=== PATIENT | female | born 1945 | race African-American/Black ===

== ENCOUNTER 2016-08-11 16:59 | Inpatient (IN) | payer OTHER, MEDICARE ==
[~2016-08-11] VITALS: Ht 172.7 cm; Wt 123.9 kg
[~2016-08-11 16:59] MED LIST: DIOV160T3 PO; METF500T PO; OMEP20TA PO; PRAV40TA PO; VITD400 PO
[2016-09-03] MEDS ORDERED: GABA100C4 PO (14:22)
[2016-09-03] MEDS ORDERED: ZETI10TA5 PO (14:22)
[2016-09-07] MEDS ORDERED: NEOSTIGMINE 3 MG/3 ML SYR IV ONE (12:00)
[2016-09-07] MEDS ORDERED: ePHEDrine/NS 50 MG/5 ML SYR IV ONE (12:00)
[2016-09-07] MEDS ORDERED: PROPOFOL 200 MG/20 ML AMP IV ONE (12:00)
[2016-09-07] MEDS ORDERED: NORMOSOL R INJ 1,000 ML IV ONE (12:00)
[2016-09-07] MEDS ORDERED: ONDANSETRON HCL 4 MG/2 ML VIAL IV PUSH ONE (12:00)
[2016-09-07] MEDS ORDERED: BUPIVACAINE HCL PF 0.5% 30 ML VIAL NB ONE (12:01)
[2016-09-07] MEDS ORDERED: GENTAMICIN SULFATE 80 MG/2 ML VIAL ONE (12:51)
[2016-09-07 13:26] VITALS: BP 138/73; PULSE 67; RESP 20; TEMP 99.1; O2SAT 99
[2016-09-07 13:34] LABS: AUTOMATED NEUTROPHIL # 4.5 TH/MM3 (1.8-7.7); BASOPHIL # 0.1 TH/MM3 (0-0.2); BASOPHIL % 0.7 % (0.0-2.0); EOSINOPHIL # 0.2 TH/MM3 (0-0.4); EOSINOPHIL % 2.8 % (0.0-4.0); HEMATOCRIT 35.3 % (35.0-46.0); HEMO FLAGS DIFF FINAL; MEAN CELL VOLUME 82.6 FL (80.0-100.0); MEAN CORPUSCULAR HGB CONC 33.9 % (32.0-36.0); MONO % 9.4 % (0.0-8.0); NEUT % 60.1 % (16.0-70.0); PLATELET COUNT 261 TH/MM3 (150-450); RED BLOOD COUNT 4.27 MIL/MM3 (4.00-5.30); RED CELL DISTRIBUTION WIDTH 14.5 % (11.6-17.2); WHITE BLOOD COUNT 7.5 TH/MM3 (4.0-11.0)
[2016-09-07] MEDS ORDERED: VANCOMYCIN HCL 1000 MG VIAL ONE (13:39)
[2016-09-07] MEDS ORDERED: SODIUM CHLOR 0.9% 250 ML INJ 250 ML ONE (13:39)
[2016-09-07] MEDS ORDERED: METOPROLOL TARTRATE 25 MG TAB PO PRN (13:45)
[2016-09-07] MEDS ORDERED: VANCOMYCIN 1000 MG/NS 250 ML (for <70 kg) IV SCH ×2 (13:45)
[2016-09-07] MEDS: ROPIVACAINE PERI-ARTICULAR INJECTION. PERIART SCH ×10 (13:45→17:41)
[2016-09-07] MEDS ORDERED: SODIUM CHLORID 0.9% 500 ML IV SCH (13:45)
[2016-09-07] MEDS ORDERED: INSULIN HUMAN REGULAR 1,000 UNITS/10 ML VIAL SQ PRN (13:45)
[2016-09-07] MEDS ORDERED: LACTATED RINGER'S 1000 ML IV SCH (13:45)
[2016-09-07] MEDS: CHLORHEXIDINE GLUCONATE 4% SOLN 120 ML BTL TOP SCH (13:45)
[2016-09-07] MEDS ORDERED: ceFAZolin 2 GM PREMIX 50 ML IV SCH (14:00)
[2016-09-07] MEDS ORDERED: MIDAZOLAM HCL 5 MG/5 ML VIAL ONE (14:43)
[2016-09-07] MEDS ORDERED: FAMOTIDINE 20 MG/2 ML VIAL ONE (14:43)
[2016-09-07] MEDS ORDERED: METOCLOPRAMIDE HCL 10 MG/2 ML VIAL ONE (14:43)
[2016-09-07] MEDS ORDERED: Post-op Orders (for Pharmacy) MISC XX ONE (19:05)
[2016-09-07] MEDS ORDERED: DO NOT ADM ANY ANTICOAGULANT DRUGS XX PRN (19:08)
[2016-09-07] MEDS ORDERED: MORPHINE SULFATE 30 MG/30 ML PCA IV SCH (19:15)
[2016-09-07] MEDS ORDERED: SODIUM CHLORIDE 0.9% FLUSH 5 ML FLUSH IVF PRN (19:15)
[2016-09-07] MEDS ORDERED: ZOLPIDEM TARTRATE 5 MG TAB PO PRN (19:15)
[2016-09-07] MEDS ORDERED: WALKER WHEELS/F1 MIS (19:15)
[2016-09-07] MEDS ORDERED: NALOXONE HCL 0.4 MG/ML AMP IV PRN (19:15)
[2016-09-07] MEDS ORDERED: CPMMACHINE (19:16)
[2016-09-07] MEDS ORDERED: BEDSIDE COMMODE1 MI1 (19:16)
[2016-09-07] MEDS ORDERED: *morphine SULFATE 8 MG/ML PERIprocedure ONLY ONE (19:19)
--- NOTE | 2016-09-07 19:19 | HHI.FF ---
Face to Face Verification Diagnosis: (1) Osteoarthritis of left knee Physical Therapy Gait training, Transfer training, bed to chair Knee: Total knee, Protocol: Left, Full weight bearing Nursing RN Days per Week: 3 x Week(s): 2 Nursing: Dressing changes (clean incision with alcohol and apply dry dressing ) Additional Instructions Pt/INR q Wednesday and , call/text results to Shira [phone] I have seen patient Shikha Matute on 09/07/16. My clinical findings support the need for the requested home health care services because: Deconditioned w/ increased weakness I certify that my clinical findings support that this patient is homebound because: Post-op weakness Unsteady gait/balance Patrick Jhaveri MD Sep 07, 2016 19:19
[2016-09-07] MEDS ORDERED: fentaNYL CITRATE 250 MCG/5 ML AMP ONE ×2 (19:20→19:21)
[2016-09-07] MEDS ORDERED: MIDAZOLAM HCL 2 MG/2 ML VIAL ONE (19:20)
--- NOTE | 2016-09-07 19:22 | HHI.PR ---
Immediate Post Op Note Procedure Date: Sep 07, 2016 Pre Op Diagnosis: L Knee OA Post Op Diagnosis: Same Surgeon: Patrick Jhaveri MD Emergency Spill Response Technician(s): Shira Elliott PA-C Procedure: L TKR Anesthesia: General, Regional Block Drains: Hemovac Tourniquet time (min at mmHg) 250/300 mm hg for 74 mins Patient to: PACU Patient Condition: Good Implant/Devices: SEE IMPLANT LOG (if applicable) Date/Time of Procedure: SEE SURGICAL CARE RECORD Patrick Jhaveri MD Sep 07, 2016 19:22
[2016-09-07] MEDS ORDERED: PILL SPLITTER OTHER PRN (20:00)
[2016-09-07] MEDS: LACTATED RINGER'S 1000 ML INJ 1,000 ML IV SCH (20:00)
--- NOTE | 2016-09-07 20:48 | RADRPT ---
EXAM DATE/TIME: 09/07/2016 19:21 [facility] COMPARISON: No previous studies available for comparison. INDICATIONS : Post op left knee arthroplasty. MEDICAL HISTORY : None. SURGICAL HISTORY : None. ENCOUNTER: Initial ACUITY: 1 day PAIN SCORE: 0/10 LOCATION: Left knee FINDINGS: Postop left total knee replacement. Drain in soft tissues. Skin windy anteriorly. Normal alignment. No complications identified. CONCLUSION: 1. Postoperative left total knee replacement. Husam Franco MD on September 07, 2016 at 20:46 Board Certified Radiologist. This report was verified electronically.
[2016-09-07] MEDS: SODIUM CHLORIDE 0.9% FLUSH 5 ML FLUSH IVF SCH (21:00)
[2016-09-07] MEDS: PCA - TOTAL MG MORPHINE DELIVERED PER SHIFT SCH (22:00)
[2016-09-07 22:15] VITALS: BP 114/75; PULSE 71; RESP 16; TEMP 97; O2SAT 100
[2016-09-07] MEDS: ALUMINUM/MAGNESIUM/SIMETH 30 ML CUP PO PRN (22:18)
[2016-09-07] MEDS: GABAPENTIN 100 MG CAP PO SCH (22:19)
[2016-09-07] MEDS: metFORMIN HCL 500 MG TAB PO SCH (23:12)
[2016-09-08 04:00] VITALS: BP 105/59; PULSE 96; RESP 17; TEMP 97; O2SAT 98
[2016-09-08] MEDS: PCA - TOTAL MG MORPHINE DELIVERED PER SHIFT SCH (05:20)
[2016-09-08 06:17] LABS: PROTHROMBIN TIME - PATIENT 10.8 SEC (9.8-11.6)
--- NOTE | 2016-09-08 07:06 | PD.ORT.PN ---
Subjective Subjective Remarks POD#1 L TKR No sob,no chest pain Explained to pt operative findings Objective Vitals Vital Signs Date Time Temp Pulse Resp B/P Pulse Ox O2 Delivery O2 Flow Rate FiO2 09/08/16 05:20 18 09/08/16 04:00 97.0 96 17 105/59 98 09/08/16 03:24 16 09/07/16 22:15 97.0 71 16 114/75 100 09/07/16 22:00 18 09/07/16 20:45 70 14 155/76 98 Nasal Cannula 2 09/07/16 20:30 61 14 163/75 98 Nasal Cannula 2 09/07/16 20:15 60 16 176/77 98 Nasal Cannula 2 09/07/16 20:00 64 16 158/77 98 Nasal Cannula 2 09/07/16 19:45 68 16 147/51 97 Nasal Cannula 2 09/07/16 19:30 67 16 119/71 97 Nasal Cannula 2 09/07/16 19:15 69 16 145/67 95 Nasal Cannula 2 09/07/16 19:10 98.1 68 18 157/73 98 Nasal Cannula 2 09/07/16 13:26 99.1 67 20 138/73 99 I/O 09/07/16 09/07/16 09/07/16 09/08/16 09/08/16 09/08/16 07:00 15:00 23:00 07:00 15:00 23:00 Intake Total 1500 ml 466 ml Output Total 140 ml 0 ml Balance 1360 ml 466 ml Intake IV Total 466 ml Other 1500 ml Output Drainage Total 90 ml 0 ml Estimated Blood Loss 50 ml # Voids 1 Result Diagram: 09/07/16 1320 Other Results Laboratory Tests Test 09/08/16 05:46 Prothrombin Time 10.8 SEC (9.8-11.6) Prothromb Time International 1.0 RATIO Ratio Imaging Last 24 hours Impressions Knee X-Ray 09/07/16 1907 Signed Impressions: Service Date/Time: Wednesday, September 07, 2016 19:21 - CONCLUSION: 1. Postoperative left total knee replacement. Husam Franco MD Objective Remarks N/V intact Neg sneha's sign;no calf tenderness Assessment & Plan Assessment and Plan Ortho stable PT/Rehab Coumadin,TEDS,Sequentials for DVT prophylaxsis D/C home tomorrow;[facility]HC Nursing/PT Patrick Jhaveri MD Sep 08, 2016 07:06
[2016-09-08 08:17] VITALS: O2SAT 98
[2016-09-08 08:20] VITALS: BP 127/54; PULSE 65; RESP 16; TEMP 98; O2SAT 99
[2016-09-08] MEDS: LACTATED RINGER'S 1000 ML INJ 1,000 ML IV SCH ×2 (08:30→21:00)
[2016-09-08] MEDS: VALSARTAN 160 MG TAB PO SCH (08:54)
[2016-09-08] MEDS: HYDROCHLOROTHIAZIDE 25 MG TAB PO SCH (08:55)
[2016-09-08] MEDS: metFORMIN HCL 500 MG TAB PO SCH ×2 (08:55→19:43)
[2016-09-08] MEDS: PANTOPRAZOLE SOD 20 MG DELAYED RELEASE TAB PO SCH (08:55)
[2016-09-08] MEDS: PRAVASTATIN SOD 40 MG TAB PO SCH (08:55)
[2016-09-08] MEDS: EZETIMIBE 10 MG TAB PO SCH (08:56)
[2016-09-08] MEDS: SODIUM CHLORIDE 0.9% FLUSH 5 ML FLUSH IVF SCH ×2 (08:58→19:44)
[2016-09-08] MEDS: ONDANSETRON HCL 4 MG/2 ML VIAL IVP PRN (11:06)
[2016-09-08 11:11] VITALS: BP 121/55; PULSE 66; RESP 16; TEMP 96.5; O2SAT 100
[2016-09-08 13:45] LABS: HEMATOCRIT 27.8 % (35.0-46.0); REVIEW FLAG FINAL
[2016-09-08] MEDS: CHLORHEXIDINE GLUCONATE 4% SOLN 120 ML BTL TOP SCH (13:45)
[2016-09-08] MEDS: ACETAMINOPHEN/HYDROcodone 325 MG/7.5 MG TAB PO PRN ×2 (14:08→19:43)
--- NOTE | 2016-09-08 15:36 | PD.CONS ---
HPI Service [facility] Hospitalists Consult Requested By Dr. Jhaveri Reason for Consult Medical management Primary Care Physician Chantell Stephen Diagnoses: (1) Osteoarthritis of left knee (2) Diabetes (3) Hyperlipidemia (4) Hypertension History of Present Illness 70-year-old female with a medical history significant for hypertension, hyperlipidemia, diabetes, chronic back pain, GERD, osteoarthritis admitted for total left knee arthroplasty. Hospitalist service consulted for medical management. The patient is seen postop. She reports that her pain is controlled. Regarding hypertension, she reports that it's been under good control with her current medication. She denies any episode of exertional dyspnea or chest pain. Diabetes has been managed with metformin. She reports a history of a heart murmur but denies any history of atrial fibrillation or blood clots. The patient reports having issues with osteoarthritis for a long time. She has a history of multiple back surgery. She has been having increasing issues with the left knee to the point where she could barely walk therefore she was admitted for total left knee arthroplasty. Review of Systems Constitutional: DENIES: Fever, Weight loss, Chills Cardiovascular: DENIES: Chest pain, Lower Extremity Edema Musculoskeletal: COMPLAINS OF: Joint pain, Muscle aches, Back pain Other All other systems reviewed and are negative. Past Family Social History Allergies: Coded Allergies: Clam (Unverified Allergy, Severe, lips swelling and itching, 09/07/16) Penicillin (Unverified Allergy, Severe, WELTS, SWELLING, PRURITIS, 09/07/16 ) Xanax (Unverified Adverse Reaction, Severe, HALLUCINATIONS, 09/07/16) Past Medical History hypertension, hyperlipidemia, diabetes, chronic back pain, GERD, osteoarthritis Past Surgical History Appendectomy Lumbar laminectomy and fusion. Pain stimulator 2. Both have since been removed. Total left knee arthroplasty Reported Medications Reported Meds & Active Scripts Active CPM-Continuous Passive Motion Machine 1 Ea Device 1 Ea .ROUTE DIRECTED Bedside Commode (Device) 1 Mis Mis 1 Ea .ROUTE DIRECTED Reported Gabapentin 100 Mg Cap 100 Mg PO HS Zetia (Ezetimibe) 10 Mg Tab 10 Mg PO DAILY Diovan Hct (Valsartan-Hydrochlorothiazide) 160-12.5 Mg Tab 1 Tab PO DAILY Pravachol (Pravastatin) 40 Mg Tab 40 Mg PO DAILY Omeprazole 20 Mg Tab 20 Mg PO DAILY Metformin (Metformin HCl) 500 Mg Tab 1,000 Mg PO BID With a meal Physical Exam Vital Signs Vital Signs Date Time Temp Pulse Resp B/P Pulse Ox O2 Delivery O2 Flow Rate FiO2 09/08/16 11:11 96.5 66 16 121/55 100 09/08/16 08:20 98.0 65 16 127/54 99 09/08/16 08:17 98 21 09/08/16 05:20 18 09/08/16 04:00 97.0 96 17 105/59 98 09/08/16 03:24 16 09/07/16 22:15 97.0 71 16 114/75 100 09/07/16 22:00 18 09/07/16 20:45 70 14 155/76 98 Nasal Cannula 2 09/07/16 20:30 61 14 163/75 98 Nasal Cannula 2 09/07/16 20:15 60 16 176/77 98 Nasal Cannula 2 09/07/16 20:00 64 16 158/77 98 Nasal Cannula 2 09/07/16 19:45 68 16 147/51 97 Nasal Cannula 2 09/07/16 19:30 67 16 119/71 97 Nasal Cannula 2 09/07/16 19:15 69 16 145/67 95 Nasal Cannula 2 09/07/16 19:10 98.1 68 18 157/73 98 Nasal Cannula 2 Physical Exam GENERAL: This is a well-nourished, well-developed patient, in no apparent distress. SKIN: No rashes, ecchymoses or lesions. Cool and dry. HEAD: Atraumatic. Normocephalic. No temporal or scalp tenderness. EYES: Pupils equal round and reactive. Extraocular motions intact. No scleral icterus. No injection or drainage. ENT: Nose without bleeding, purulent drainage or septal hematoma. Throat without erythema, tonsillar hypertrophy or exudate. Uvula midline. Airway patent. NECK: Trachea midline. No JVD or lymphadenopathy. Supple, nontender, no meningeal signs. CARDIOVASCULAR: Regular rate and rhythm without murmurs, gallops, or rubs. RESPIRATORY: Clear to auscultation. Breath sounds equal bilaterally. No wheezes , rales, or rhonchi. GASTROINTESTINAL: Abdomen soft, non-tender, nondistended. No hepato-splenomegaly , or palpable masses. No guarding. MUSCULOSKELETAL: Extremities without clubbing, cyanosis, or edema. No joint tenderness, effusion, or edema noted. No calf tenderness. Negative Homans sign bilaterally. NEUROLOGICAL: Awake and alert. Cranial nerves II through XII intact. Motor and sensory grossly within normal limits. Five out of 5 muscle strength in all muscle groups. Normal speech. Laboratory Laboratory Tests Test 09/08/16 09/08/16 05:46 13:13 Prothrombin Time 10.8 Prothromb Time International 1.0 Ratio Hemoglobin 9.0 Hematocrit 27.8 Result Diagram: 09/08/16 1313 Imaging Last Impressions Knee X-Ray 09/07/16 1907 Signed Impressions: Service Date/Time: Wednesday, September 07, 2016 19:21 - CONCLUSION: 1. Postoperative left total knee replacement. Husam Franco MD Assessment and Plan Problem List: (1) Osteoarthritis of left knee ICD Code: M17.12 Status: Acute (2) Diabetes ICD Code: E11.9 Status: Acute (3) Hyperlipidemia ICD Code: E78.5 Status: Acute (4) Hypertension ICD Code: I10 Status: Acute (5) Knee joint replacement status ICD Code: Z96.659 Status: Acute Assessment and Plan 70-year-old female with: Osteoarthritis status post left knee arthroplasty: - Continue routine postop care per orthopedics. - Pain control. PT Hypertension: Continue antihypertensives. Hyperlipidemia: Continue Zetia and statin. Diabetes: Continue metformin. Will obtain baseline BMP. GERD: Continue omeprazole DVT prophylaxis: On Coumadin per orthopedics. Thank you for allowing me to participate in the care of the patient. We'll continue to follow. Lanette Abraham MD Sep 08, 2016 15:36
[2016-09-08] MEDS ORDERED: WARFARIN SOD 5 MG TAB PO SCH (16:00)
[2016-09-08] MEDS ORDERED: WARFARIN SOD 7.5 MG TAB PO ONE (16:00)
[2016-09-08 16:33] VITALS: BP 138/46; PULSE 69; RESP 16; TEMP 97.9; O2SAT 100
[2016-09-08] MEDS: GABAPENTIN 100 MG CAP PO SCH (19:44)
[2016-09-08 20:20] VITALS: BP 145/61; PULSE 71; RESP 18; TEMP 96.5; O2SAT 97
[2016-09-08 22:07] LABS: BICARBONATE 27.6 MEQ/L (21.0-32.0); POTASSIUM 4.1 MEQ/L (3.5-5.1)
[2016-09-09] VITALS (7 sets, daily range): BP systolic 106–155; BP diastolic 46–93; PULSE 68–100; RESP 17–20; TEMP 98.5–99.8; O2SAT 96–100
[2016-09-09] MEDS: ACETAMINOPHEN/HYDROcodone 325 MG/7.5 MG TAB PO PRN ×5 (05:52→23:20)
[2016-09-09 07:07] LABS: PROTHROMBIN TIME - PATIENT 10.8 SEC (9.8-11.6)
--- NOTE | 2016-09-09 07:44 | PD.ORT.PN ---
Subjective Subjective Remarks pt complains of body aches, sore throat, knee soreness, does not feel she can be discharged today Objective Vitals Vital Signs Date Time Temp Pulse Resp B/P Pulse Ox O2 Delivery O2 Flow Rate FiO2 09/09/16 04:15 98.5 100 18 129/59 96 09/09/16 00:21 99.2 85 17 106/61 97 09/08/16 20:20 96.5 71 18 145/61 97 09/08/16 16:33 97.9 69 16 138/46 100 09/08/16 11:11 96.5 66 16 121/55 100 09/08/16 08:20 98.0 65 16 127/54 99 09/08/16 08:17 98 21 I/O 09/08/16 09/08/16 09/08/16 09/09/16 09/09/16 09/09/16 07:00 15:00 23:00 07:00 15:00 23:00 Intake Total 706 ml 1200 ml 240 ml 360 ml Output Total 0 ml 60 ml Balance 706 ml 1200 ml 180 ml 360 ml Intake Oral 240 ml 1200 ml 240 ml 360 ml IV Total 466 ml Output Drainage Total 0 ml 60 ml # Voids 1 3 2 2 # Bowel Movements 0 0 0 0 Result Diagram: 09/08/16 1313 09/08/162009 Other Results Laboratory Tests Test 09/09/16 06:31 Prothrombin Time 10.8 SEC (9.8-11.6) Prothromb Time International 1.0 RATIO Ratio Imaging Last 24 hours Impressions Knee X-Ray 09/07/16 1906 Signed Impressions: Service Date/Time: Wednesday, September 07, 2016 19:21 - CONCLUSION: 1. Postoperative left total knee replacement. Husam Franco MD Objective Remarks Left knee dressings dry and intact +NV intact neg sneha's sign;no calf tenderness Assessment & Plan Assessment and Plan POD # 2 s/p L TKA Coumadin 7.5 mg again today Ortho stable PT/Rehab hold discharge for today, anticipate discharge tomorrow home with [facility] vs SNF Shira Elliott Sep 09, 2016 07:44
[2016-09-09] MEDS: LACTATED RINGER'S 1000 ML INJ 1,000 ML IV SCH ×2 (09:30→22:00)
[2016-09-09] MEDS: PRAVASTATIN SOD 40 MG TAB PO SCH (10:00)
[2016-09-09] MEDS: EZETIMIBE 10 MG TAB PO SCH (10:01)
[2016-09-09] MEDS: metFORMIN HCL 500 MG TAB PO SCH ×2 (10:02→21:11)
[2016-09-09] MEDS: VALSARTAN 160 MG TAB PO SCH (10:02)
[2016-09-09] MEDS: HYDROCHLOROTHIAZIDE 25 MG TAB PO SCH (10:02)
[2016-09-09] MEDS: SODIUM CHLORIDE 0.9% FLUSH 5 ML FLUSH IVF SCH ×2 (10:03→21:11)
[2016-09-09] MEDS: PANTOPRAZOLE SOD 20 MG DELAYED RELEASE TAB PO SCH (10:06)
[2016-09-09] MEDS: ONDANSETRON HCL 4 MG/2 ML VIAL IVP PRN (10:12)
--- NOTE | 2016-09-09 11:13 | HHI.PR ---
Subjective Remarks Patient reports nausea this morning. Has not been to tolerate her diet. She reports persistent pain in the left knee and the lower left calf. Objective Vitals Vital Signs Date Time Temp Pulse Resp B/P Pulse Ox O2 Delivery O2 Flow Rate FiO2 09/09/16 08:00 99.8 75 20 113/56 96 09/09/16 04:15 98.5 100 18 129/59 96 09/09/16 00:21 99.2 85 17 106/61 97 09/08/16 20:20 96.5 71 18 145/61 97 09/08/16 16:33 97.9 69 16 138/46 100 I/O 09/08/16 09/08/16 09/08/16 09/09/16 09/09/16 09/09/16 07:00 15:00 23:00 07:00 15:00 23:00 Intake Total 706 ml 1200 ml 240 ml 360 ml Output Total 0 ml 60 ml Balance 706 ml 1200 ml 180 ml 360 ml Intake Oral 240 ml 1200 ml 240 ml 360 ml IV Total 466 ml Output Drainage Total 0 ml 60 ml # Voids 1 3 2 2 # Bowel Movements 0 0 0 0 Result Diagram: 09/08/16 1313 09/08/162009 Imaging Last Impressions Knee X-Ray 09/07/16 1907 Signed Impressions: Service Date/Time: Wednesday, September 07, 2016 19:21 - CONCLUSION: 1. Postoperative left total knee replacement. Husam Franco MD Objective Remarks GENERAL: This is a well-nourished, well-developed patient, in no apparent distress. CARDIOVASCULAR: Normal rate and regular rhythm without murmurs, gallops, or rubs. RESPIRATORY: Good respiratory efforts. Breath sounds equal and clear to auscultation bilaterally. GASTROINTESTINAL: Abdomen soft, non-tender, non-distended. Normal active bowel sounds MUSCULOSKELETAL: Left knee postop dressing is clean and dry. Patient endorsed tenderness to palpation over the lower left calf muscles. NEURO: Alert & Oriented x4 to person, place, time, situation. Moves all ext x4 PSYCH: Appropriate mood and affect. A/P Problem List: (1) Osteoarthritis of left knee ICD Code: M17.12 Status: Acute (2) Diabetes ICD Code: E11.9 Status: Acute (3) Hyperlipidemia ICD Code: E78.5 Status: Acute (4) Hypertension ICD Code: I10 Status: Acute (5) Knee joint replacement status ICD Code: Z96.659 Status: Acute Assessment and Plan 70-year-old female with: Osteoarthritis status post left knee arthroplasty: - Continue routine postop care per orthopedics. - Pain not well controlled. She reports left lower calf muscle pain. Lower extremity Doppler has been ordered. Will follow-up. - We'll add morphine as needed for breakthrough pain. Continue Lortab. - Patient reports persistent nausea. Add Reglan as needed. Hypertension: Continue antihypertensives. Hyperlipidemia: Continue Zetia and statin. Diabetes: Continue metformin. Will obtain baseline BMP. GERD: Continue omeprazole DVT prophylaxis: On Coumadin per orthopedics. Lanette Abraham MD Sep 09, 2016 11:13
[2016-09-09] MEDS: ALUMINUM/MAGNESIUM/SIMETH 30 ML CUP PO PRN (12:18)
[2016-09-09] MEDS: CHLORHEXIDINE GLUCONATE 4% SOLN 120 ML BTL TOP SCH (13:45)
[2016-09-09] MEDS ORDERED: METOCLOPRAMIDE HCL 10 MG/2 ML VIAL IV PUSH PRN (15:00)
[2016-09-09] MEDS ORDERED: MORPHINE SULFATE 4 MG/ML INJ IV PUSH PRN (15:15)
--- NOTE | 2016-09-09 15:24 | RADRPT ---
EXAM DATE/TIME: 09/09/2016 14:19 [facility] COMPARISON: No previous studies available for comparison. INDICATIONS : Left leg swelling. Post left knee surgery 09/07/16. MEDICAL HISTORY : Diabetes mellitus type 2. Gastroesophageal reflux disease. Rheumatoid arthritis. Heart murmur. UTI . Degenerative disc disease. HTN. SURGICAL HISTORY : Tonsillectomy. Appendectomy. Adenoidectomy. Lumbar lami fusion. Evac hematoma. Spinal cord stimulat or. Partial hysterectomy. ENCOUNTER: Initial ACUITY: 1 day PAIN SCORE: 10/10 LOCATION: Left leg. TECHNIQUE: Venous ultrasound of the leg was performed from the inguinal ligament to the proximal calf. Real-breonna e, color Doppler and spectral tracing, compression and augmentation techniques were used. FINDINGS: There is normal compressibility of the deep venous system from the inguinal region to the proximal ca lf. No echogenic clot is seen in the lumen of the common femoral, femoral, popliteal, and posterior tibial veins. There is a normal response of the venous system to proximal and distal augmentation an d respiration. CONCLUSION: 1. No evidence of deep venous thrombosis. Manolo Aquino MD on September 09, 2016 at 15:22 Board Certified Radiologist. This report was verified electronically.
[2016-09-09] MEDS ORDERED: WARFARIN SOD 5 MG TAB PO SCH (16:00)
[2016-09-09] MEDS ORDERED: WARFARIN SOD 7.5 MG TAB PO ONE (16:00)
[2016-09-09] MEDS: GABAPENTIN 100 MG CAP PO SCH (21:11)
[2016-09-10 00:21] VITALS: BP 115/57; PULSE 108; RESP 18; TEMP 98.9; O2SAT 97
[2016-09-10] MEDS: ACETAMINOPHEN/HYDROcodone 325 MG/7.5 MG TAB PO PRN ×4 (04:12→17:00)
[2016-09-10 05:53] LABS: INTERNATIONAL NORMALIZED RATIO 1.1 RATIO; PROTHROMBIN TIME - PATIENT 11.8 SEC (9.8-11.6)
[2016-09-10 05:57] LABS: HEMATOCRIT 25.3 % (35.0-46.0); MEAN CELL VOLUME 82.8 FL (80.0-100.0); MEAN CORPUSCULAR HEMOGLOBIN 28.4 PG (27.0-34.0); MEAN CORPUSCULAR HGB CONC 34.3 % (32.0-36.0); PLATELET COUNT 223 TH/MM3 (150-450); RED BLOOD COUNT 3.05 MIL/MM3 (4.00-5.30); RED CELL DISTRIBUTION WIDTH 14.3 % (11.6-17.2); REVIEW FLAG FINAL
[2016-09-10 06:11] LABS: BICARBONATE 26.9 MEQ/L (21.0-32.0); POTASSIUM 3.8 MEQ/L (3.5-5.1)
[2016-09-10 08:19] VITALS: O2SAT 98
[2016-09-10 08:20] VITALS: BP 127/56; PULSE 80; RESP 16; TEMP 97.7; O2SAT 95
[2016-09-10] MEDS: EZETIMIBE 10 MG TAB PO SCH (08:21)
[2016-09-10] MEDS: PANTOPRAZOLE SOD 20 MG DELAYED RELEASE TAB PO SCH (08:21)
[2016-09-10] MEDS: metFORMIN HCL 500 MG TAB PO SCH (08:21)
[2016-09-10] MEDS: HYDROCHLOROTHIAZIDE 25 MG TAB PO SCH (08:22)
[2016-09-10] MEDS: PRAVASTATIN SOD 40 MG TAB PO SCH (08:22)
[2016-09-10] MEDS: SODIUM CHLORIDE 0.9% FLUSH 5 ML FLUSH IVF SCH (08:22)
[2016-09-10] MEDS: VALSARTAN 160 MG TAB PO SCH (08:22)
[2016-09-10] MEDS ORDERED: BISACODYL 10 MG SUPP RECTAL PRN (09:00)
[2016-09-10] MEDS ORDERED: MAGNESIUM HYDROXIDE SUSP 30 ML CUP PO SCH (09:00)
--- NOTE | 2016-09-10 09:50 | PD.ORT.PN ---
Subjective Subjective Remarks pt has continued post op knee pain, feels she will be unable to go home with [facility] and therefore would like to go to SNF today Objective Vitals Vital Signs Date Time Temp Pulse Resp B/P Pulse Ox O2 Delivery O2 Flow Rate FiO2 09/10/16 08:20 97.7 80 16 127/56 95 09/10/16 00:21 98.9 108 18 115/57 97 09/09/16 20:18 99.1 68 18 155/93 100 09/09/16 18:00 21 09/09/16 15:41 99.6 84 19 135/61 99 09/09/16 12:00 99.3 72 19 109/46 99 09/09/16 11:40 99 09/09/16 11:04 17 I/O 09/09/16 09/09/16 09/09/16 09/10/16 09/10/16 09/10/16 07:00 15:00 23:00 07:00 15:00 23:00 Intake Total 360 ml 240 ml 480 ml 360 ml Balance 360 ml 240 ml 480 ml 360 ml Intake Oral 360 ml 240 ml 480 ml 360 ml # Voids 2 1 3 2 # Bowel Movements 0 0 0 0 Result Diagram: 09/10/16 0511 09/10/16 0511 Other Results Laboratory Tests Test 09/10/16 05:11 Prothrombin Time 11.8 SEC (9.8-11.6) Prothromb Time International 1.1 RATIO Ratio Imaging Last 24 hours Impressions Knee X-Ray 09/07/16 1907 Signed Impressions: Service Date/Time: Wednesday, September 07, 2016 19:21 - CONCLUSION: 1. Postoperative left total knee replacement. Husam Franco MD Objective Remarks seen by Dr. Patrick Jhaveri Left knee dressings dry and intact +NV intact neg sneha's sign;no calf tenderness Assessment & Plan Assessment and Plan POD # 3 s/p L TKA Coumadin 7.5 mg again today, discharge on 5 mg daily U/S LLE was negative for DVT yesterday Ortho stable PT/Rehab discharge to SNF today Shira Elliott Sep 10, 2016 09:49
[2016-09-10] MEDS: LACTATED RINGER'S 1000 ML INJ 1,000 ML IV SCH (10:30)
[2016-09-10] MEDS ORDERED: ZOFR4TAB PO (11:09)
--- NOTE | 2016-09-10 11:10 | HHI.PR ---
Subjective Remarks Patient seen in follow-up for left total knee arthroplasty. She continues to report persistent pain and is unable to go home with home health. She will be discharged to half-way facility per orthopedics. No bowel movement yet. She complains of some nausea. Objective Vitals Vital Signs Date Time Temp Pulse Resp B/P Pulse Ox O2 Delivery O2 Flow Rate FiO2 09/10/16 08:20 97.7 80 16 127/56 95 09/10/16 08:19 98 21 09/10/16 00:21 98.9 108 18 115/57 97 09/09/16 20:18 99.1 68 18 155/93 100 09/09/16 18:00 21 09/09/16 15:41 99.6 84 19 135/61 99 09/09/16 12:00 99.3 72 19 109/46 99 09/09/16 11:40 99 I/O 09/09/16 09/09/16 09/09/16 09/10/16 09/10/16 09/10/16 07:00 15:00 23:00 07:00 15:00 23:00 Intake Total 360 ml 240 ml 480 ml 360 ml Balance 360 ml 240 ml 480 ml 360 ml Intake Oral 360 ml 240 ml 480 ml 360 ml # Voids 2 1 3 2 # Bowel Movements 0 0 0 0 Result Diagram: 09/10/16 0511 09/10/16 0511 Objective Remarks GENERAL: This is a well-nourished, well-developed patient, in no apparent distress. CARDIOVASCULAR: Normal rate and regular rhythm without murmurs, gallops, or rubs. RESPIRATORY: Good respiratory efforts. Breath sounds equal and clear to auscultation bilaterally. GASTROINTESTINAL: Abdomen soft, non-tender, non-distended. Normal active bowel sounds MUSCULOSKELETAL: Left knee postop dressing is clean and dry. Neurovascularly intact at the toes. NEURO: Alert & Oriented x4 to person, place, time, situation. Moves all ext x4 PSYCH: Appropriate mood and affect. A/P Problem List: (1) Osteoarthritis of left knee ICD Code: M17.12 Status: Acute (2) Diabetes ICD Code: E11.9 Status: Acute (3) Hyperlipidemia ICD Code: E78.5 Status: Acute (4) Hypertension ICD Code: I10 Status: Acute (5) Knee joint replacement status ICD Code: Z96.659 Status: Acute Assessment and Plan 70-year-old female with: Osteoarthritis status post left knee arthroplasty: - Continue routine postop care per orthopedics. - Lower extremity Dopplers negative for DVT. -Continue Lortab. Morphine for breakthrough pain -Milk of magnesia and Dulcolax already ordered for constipation. - Continue antiemetics for probable pain medication related nausea. Hypertension: Continue antihypertensives. Hyperlipidemia: Continue Zetia and statin. Diabetes: Continue metformin. GERD: Continue omeprazole DVT prophylaxis: On Coumadin per orthopedics. Discharge Planning Per orthopedics. Lanette Abraham MD Sep 10, 2016 11:10
[2016-09-10 12:10] VITALS: BP 130/64; PULSE 79; RESP 16; TEMP 97.9; O2SAT 96
[2016-09-10] MEDS ORDERED: LACTULOSE SYRUP 20 GM/30 ML CUP PO ONE (13:15)
[2016-09-10] MEDS ORDERED: WARFARIN SOD 7.5 MG TAB PO ONE (16:00)
[2016-09-10] MEDS ORDERED: WARFARIN SOD 5 MG TAB PO SCH (16:00)
[2016-09-10 16:05] VITALS: BP 134/75; PULSE 81; RESP 18; TEMP 98.2; O2SAT 95
--- NOTE | 2016-09-11 10:13 | MP ---
cc: MIKE JHAVERI M.D., ANN A. ARNP DATE OF SURGERY: 09/07/2016 PREOPERATIVE DIAGNOSIS Left knee tricompartmental osteoarthritis. POSTOPERATIVE DIAGNOSIS Left knee tricompartmental osteoarthritis. PROCEDURE Left total knee arthroplasty--cemented [employer]. SURGEON Spencer Jhaveri MD NUCLEAR OPERATIONS SPECIALIST Shira Elliott PA-C SPECIMEN None. ESTIMATED BLOOD LOSS Less than 50 cc. COMPLICATIONS None. ANESTHESIA General, femoral nerve block, regional block. DRAINS Two. TOURNIQUET TIME 74 minutes at 250 mmHg and 300 mmHg. CONDITION Stable. PLAN OF ACTIVITY Per orders. DETAILS OF PROCEDURE My language assistant, CHANDRIKA Alicia, was present for the entire surgical case. She was medically necessary for the entire case because of the complexity of the case and to facilitate the performance of the procedure. The UNDERCOAT SPRAYER at the back table did not have the skill set for this case to manipulate the instruments, e.g., the multiple different types of soft tissue retractors, trial implants and permanent implants. The patient was brought into the operating room and had satisfactory regional anesthesia followed by general anesthesia by Dr. Dannie Conway of the department of anesthesia. The left lower extremity was prepped and draped in the usual sterile manner. The extremity was exsanguinated by elevation and tourniquet inflated to 250 mmHg. At 23 minutes into the tourniquet time the patient developed hypertension and the patient had bleeding through the tourniquet. The tourniquet was then relieved and stopped. The patient's blood pressure then went down to normal and then the left lower extremity was exsanguinated by six-inch Sandor wrap and the tourniquet was inflated 300 mmHg, so that the total tourniquet time at 250 mmHg and 300 mmHg was 74 minutes. Small anterior exposure to the knee was made. A paramedian capsulotomy was performed. The patient was found to have moderately severe tricompartmental osteoarthritis. The patient was also found to have significant synovitis. The remaining portion of the medial and lateral meniscus was removed. The prepatellar fat pad was excised. The anterior cruciate ligament was removed. The posterior cruciate ligament was preserved. Using the [employer] total knee arthroplasty system an IM guide was used at the distal femur to accept a 70 mm femoral component, 5 degree valgus cut. An extramedullary guide was used for the proximal tibia and this was to accept a 75 mm tibial component. Trial reduction was made with both flexion and extension. The 10 mm insert was found to be stable and satisfactory. The undersurface of the patella was removed in order to accept a 31 mm three-pronged patellar prosthesis. All trial components were removed and preparation for cementing was made. The knee at this time was injected with local anesthesia provided by the Department of Pharmacy. The knee was irrigated. Two packages of high viscosity bone cement by [employer] was used. First the tibial component was cemented followed by the femoral component and then the patella component. The bone cement was allowed to harden for 13 minutes. All excess bone cement was removed. A 10 x 75 mm tibial prosthesis, polyethylene plastic, was placed onto the tibial tray. Appropriate locking mechanism was performed. The tourniquet was deflated. All bleeders were individually coagulated. The wound was irrigated with 4000 cc of sterile saline antibiotic solution. The wound itself was dry. Lateral retinacular release was not necessary in that the patella was found to track well within the patellofemoral compartment with the "no thumbs technique." The capsule and extensor mechanism were repaired using multiple interrupted #2 Tycron sutures. The subcutaneous tissue was closed in layers with 0 Vicryl and 2-0 Vicryl. Skin was approximated with skin windy. Sterile dressings were applied. The patient tolerated the procedure well and arrived in the recovery room in stable and satisfactory condition. MD NEAL Stein/JEMMA /7:05 PM /9:52 AM
--- NOTE | 2016-10-14 13:26 | HHI.DS ---
Discharge Summary Admission Date Sep 07, 2016 at 12:31 Discharge Date: Sep 10, 2016 Admitting Diagnosis Left knee osteoarthritis Diagnosis: (1) Osteoarthritis of left knee Diagnosis: Principal Procedures Left total knee replacement Brief History This is a 70 year old female patient who complains of left knee pain ongoing for more than one year. She has failed exercise, therapy, NSAIDS and using a cane/walker for assistive ambulation. She has had continued difficulty with walking and ADLS and wanted to proceed forward with surgical management. Imaging x-rays of the left knee show severe tri-compartment osteoarthritis PE at Discharge seen by Dr. Patrick Jhaveri Left knee dressings dry and intact +NV intact neg sneha's sign;no calf tenderness Hospital Course Patient underwent satisfactory anaesthesia by the dept of anaesthesia. She underwent left total knee arthroplasty on the date of admission. She was treated with low dose Coumadin night before surgery and will be continued to be treated with low dose Coumadin for four weeks post-operatively. She was started with full weight bearing ambulation on pod #1 and also CPM machine. She progressed well. She was also followed by medical during her hospital stay. She was discharged to a SNF on post operative day #3 in stable condition. Pt Condition on Discharge: Stable Discharge Disposition: Discharge to SNF Discharge Instructions Diet Instructions: Coumadin (Warfarin) Diet Activities You Can Perform: Weight Bearing as Shira Vazquez Oct 14, 2016 13:26
== END 2016-09-10 17:24 | DRG 470 ==
LOC: HSDI 09-07 12:31 → N06B 09-07 21:25
PROVIDERS: ADMIT Orthopaedic Surgery Orthopaedic Surgery of the Spine; ATTEND Orthopaedic Surgery Orthopaedic Surgery of the Spine
PROC: 3E0T3BZ Introduction of Anesthetic Agent into Peripheral Nerves and Plexi, Percutaneous Approach (ICD-10-PCS; 2016-09-07)
PROC: 0SRD0J9 Replacement of Left Knee Joint with Synthetic Substitute, Cemented, Open Approach (ICD-10-PCS; principal; 2016-09-07 16:39)
DX: M17.12 Unilateral primary osteoarthritis, left knee (principal); E11.9 Type 2 diabetes mellitus without complications; Z68.41 Body mass index [BMI] 40.0-44.9, adult; Z79.84 Long term (current) use of oral hypoglycemic drugs; I10 Essential (primary) hypertension; E78.5 Hyperlipidemia, unspecified; K21.9 Gastro-esophageal reflux disease without esophagitis; M54.9 Dorsalgia, unspecified; G47.30 Sleep apnea, unspecified; R01.1 Cardiac murmur, unspecified; Z87.891 Personal history of nicotine dependence; R11.0 Nausea; K59.00 Constipation, unspecified; E66.9 Obesity, unspecified; G89.4 Chronic pain syndrome; M96.1 Postlaminectomy syndrome, not elsewhere classified
CPT/HCPCS: 73560; 80048; 82948; 85014; 85018; 85025; 85027; 85610; 86850; 86900; 86901; 86920; 93971; 94150; C1776; J0171; J0690; J0735; J1580; J1885; J2250; J2270; J2405; J2710; J2765; J2795; J3010; J3370; J7050; J7120; L1830

== ENCOUNTER → 2017-05-31 | Day surgery (SDC) | payer OTHER ==
[~2017-05-31] MED LIST changes: +BACITRACIN IM FOR SOLN 50,000 UNIT VIAL ONE; +BEDSIDE COMMODE1 MI1; +BUPIVACAINE HCL PF 0.75% 30 ML VIAL ONE; +CPMMACHINE; +GABA100C4 PO; +GENTAMICIN SULFATE 80 MG/2 ML VIAL ONE; +LACTATED RINGER'S 1000 ML INJ 1,000 ML ONE; +LIDOCAINE 1.5%/EPINEPHrine 1:200,000 PF SOLN 30 ML AMP ONE; +MIDAZOLAM HCL 2 MG/2 ML VIAL ONE; +ONDANSETRON HCL 4 MG/2 ML VIAL IV PUSH ONE; +PROPOFOL 200 MG/20 ML AMP IV ONE; +SODIUM CHLORIDE 0.9% 20 ML VIAL ONE; -VITD400 PO; +WALKER WHEELS/F1 MIS; +ZETI10TA5 PO; +ZOFR4TAB PO; +ceFAZolin INJ 1,000 MG VIAL ONE
--- NOTE | 2017-06-01 08:22 | TN ---
cc: MIKE OTERO M.D. DATE OF SURGERY 05/31/2017 PREOPERATIVE DIAGNOSES 1. Right shoulder massive, complete rotator cuff tendon tear. 2. Right shoulder impingement syndrome, osteoarthritis AC joint, type 2 acromion. POSTOPERATIVE DIAGNOSES 1. Right shoulder massive, complete rotator cuff tendon tear. 2. Right shoulder impingement syndrome, osteoarthritis AC joint, type 2 acromion. PROCEDURE Right shoulder complete rotator cuff tendon repair, Neer decompressive acromioplasty, excision coracoacromial ligament, resection acromioclavicular joint. SURGEON Spencer Otero MD RIVER P[facility] CHANDRIKA Alicia SPECIMENS None. ESTIMATED BLOOD LOSS Minimal. COMPLICATIONS None. ANESTHESIA Interscalene block, general anesthesia. CONDITION Stable. PLAN OF ACTIVITY As per orders. PROCEDURE DETAILS My investigative assistant CHANDRIKA Alicia was present for the entire surgical case. She was medically necessary for entire case because of the complexity of the case and to facilitate the performance of the procedure. The SUPERVISOR SOLDER MAKING at back table did not have the skill set for this case to manipulate the instruments e.g. multiple different soft tissue retractors and surgical material to repair the rotator cuff tendon. The patient was brought in the operating room, had satisfactory interscalene anesthesia followed by general anesthesia by the department of Anesthesia. The patient placed in modified beach-chair position. Because of the patient's obesity great care was made to protect all pressure points. The right shoulder, thorax, upper extremity down to and including the fingers were all prepped and draped in usual sterile manner. Extensile anterior exposure to the shoulder was made. Dissection continued to the subcutaneous tissue. All bleeders were then coagulated. The tendinous portion of the deltoid was removed off the anterior aspect of the acromion and of the acromioclavicular joint. The patient was found to have type 2 acromion with subacromial impingement at the AC joint in addition to the AC joint. A Neer decompression acromioplasty was performed using oscillating saw and a bur. Resection of the acromioclavicular joint including distal clavicle was performed and excision of the coracoid acromial ligaments. With this the patient was found to have very satisfactory decompression of the subacromial space. The patient was found to have a complete tear, massive tear involving the supraspinatus, infraspinatus tendon. A bony trough was created in the greater tuberosity. Multiple #2 Tycron sutures were then used to weave within the massive tear of the rotator cuff tendons. Using concept suture passer multiple holes were used in the proximal humerus to pass these sutures through to create a bony bridge. The rotator cuff tendons were then replaced back into the greater tuberosity bony trough that was created. And each of the sutures were then secured to the bony bridge. The deltoid tendon deltoid were repaired back to the acromion with multiple drill holes using 2.0 mm margarette and using a 2-0 Tycron suture. Sterile dressings with 2-0 nylon and 2-0 Vicryl were used for subcutaneous tissue and 2-0 nylon for the skin. Sterile dressing applied. The patient tolerated the procedure well and returned to recovery room in stable and satisfactory condition. MD NEAL Stein/KK /3:44 PM /8:16 AM
== END | disposition home or self-care (01) ==
LOC: ESDC 12:26
PROVIDERS: ATTEND Orthopaedic Surgery Orthopaedic Surgery of the Spine
DX: M75.121 Complete rotator cuff tear or rupture of right shoulder, not specified as traumatic (principal)
CPT/HCPCS: 00450; 01630; 01991; 23120; 23420; 64417; J0690; J1580; J2250; J2405; J7120

== ENCOUNTER 2018-04-21 08:39 | Inpatient (IN) ==
[2018-04-21] MEDS ORDERED: Naloxone Inj 2 MG/2 ML Vial ONE (08:42)
[2018-04-21] MEDS ORDERED: Etomidate Inj 40 MG/20 ML Vial IV.PUSH ONE (08:51)
[2018-04-21] MEDS ORDERED: Succinylcholine Inj 200 MG/10 ML Vial ONE (08:52)
[2018-04-21] MEDS ORDERED: Propofol 1000 mg/100 ml Inj 1,000 MG/100 ML BOTTLE IV.CONT STA (09:00)
[2018-04-21] MEDS ORDERED: Naloxone Inj 2 MG/2 ML Vial IV.PUSH ONE (09:00)
[2018-04-21] MEDS ORDERED: Succinylcholine Inj 100 MG/5 ML Syringe IV.PUSH ONE (09:02)
[2018-04-21] MEDS ORDERED: Etomidate Inj 20 MG/10 ML Ampul IV.PUSH ONE (09:02)
--- NOTE | 2018-04-21 09:27 | ED ---
HPI General Chief Complaint: Altered Mental Status Stated Complaint: Emergent Time Seen by Provider: 04/21/18 08:58 Source: EMS Mode of arrival: EMS Limitations: altered mental status History of Present Illness HPI narrative: Patient is a 72-year-old female, past medical history significant for diabetes, who presents with complaint of altered mental status. Per EMS and family last night she was herself but "slightly goofy." This morning she seemed confused and "kid like" before she became completely unresponsive. At that time they called EMS. EMS reports that she has intermittently responded to painful stimuli before she becomes completely unresponsive. Blood glucose was unremarkable. They report normal vital signs. Patient did open her eyes for several seconds and say her name but then did not say any more information before she became completely unresponsive. complaint: altered mental status and decreased responsiveness Onset (ago): unknown Severity: severe Consistency of symptoms: waxing and waning Related Data Home Medications Medication Instructions Recorded Confirmed atorvastatin 80 mg PO DAILY 04/21/18 04/21/18 baclofen 10 mg PO TID 04/21/18 04/21/18 celecoxib 200 mg PO DAILY 04/21/18 04/21/18 ezetimibe 10 mg PO DAILY 04/21/18 04/21/18 gabapentin 100 mg PO TID 04/21/18 04/21/18 glimepiride 1 mg PO QAM 04/21/18 04/21/18 metformin 1,000 mg PO BID 04/21/18 04/21/18 metoprolol tartrate 25 mg PO BID 04/21/18 04/21/18 Allergies Allergy/AdvReac Type Severity Reaction Status Date / Time clams Allergy Severe lips Verified 04/21/18 10:24 swelling and itching penicillin G Allergy Severe WELTS, Verified 04/21/18 10:24 SWELLING, PRURITIS alprazolam AdvReac Severe HALLUCINATI Verified 04/21/18 10:24 ONS Review of Systems ROS Unobtainable ROS Unobtainable: unobtainable due to mental status PMFSH Medical History Medical History Medical history unknown (Acute) Surgical history unknown (Acute) Social History Social History Substance History: Unable to Obtain Smoking Status: Unknown if ever smoked How Often Do You Have a Drink Containing Alcohol: Unable to Obtain Recent Travel in [facility] within the Last 8 Weeks: No Recent Out of Country Travel within the Last 8 Weeks: No Immunization History Tetanus Immunization: Unable to Assess Hx Influenza Vaccine This Season: Unable to Assess Exam Narrative Exam Narrative: GENERAL: Well-appearing female, unresponsive with foul-smelling urine SKIN: Focused skin assessment warm/dry. No rashes. HEAD: Atraumatic. Normocephalic. EYES: Pupils equal and round but pinpoint. No scleral icterus. No injection or drainage. ENT: No nasal bleeding or discharge. Mucous membranes pink and moist. NECK: Trachea midline. No JVD. CARDIOVASCULAR: Regular rate and rhythm. No murmur appreciated. Intact and equal peripheral pulses. No palpable thrills. RESPIRATORY: Sonorous respirations with gurgling sounds GASTROINTESTINAL: Abdomen soft, non-tender, nondistended. Hepatic and splenic margins not palpable. MUSCULOSKELETAL: No obvious deformities. No clubbing. No cyanosis. No edema. NEUROLOGICAL: Relatively unresponsive with gurgling, sonorous respirations. No gaze deviation. No posturing. PSYCHIATRIC: Unable to assess Course Initial Documented Vital Signs Pulse Rate 55 L 04/21/18 08:49 Respiratory Rate 15 04/21/18 08:49 Blood Pressure 125/63 04/21/18 08:49 Pulse Oximetry 98 04/21/18 08:49 Last Documented Vital Signs Temperature 98.7 F 04/21/18 08:54 Pulse Rate 48 L 04/21/18 11:00 Respiratory Rate 16 04/21/18 11:00 Blood Pressure 166/73 H 04/21/18 11:00 Pulse Oximetry 100 04/21/18 11:20 Procedures Intubation Time Out Performed: Yes Sedative: etomidate Mg Given: 20 Paralytic: succinylcholine Mg Given: 150 Laryngoscope: Mary ET Tube Size: 8 ET Tube Uncuffed: Yes Tube Secured Depth (cm): 22 Tube Secured Location: lips Tube Placement Confirmation: visualized tube passing through cords and no breath sounds over epigastrium Patient Tolerated Procedure: well Intubation Complications: none Critical Care Time Critical Care Time: Yes Total Critical Care Time: 35 Attestation: Aggregate critical care time was 35 minutes. Time to perform other separately billable procedures was not included in the critical care time. My time did not include minutes spent treating any other patients simultaneously or on activities that did not directly contribute to the patient's treatment. The services I provided to this patient were to treat and/or prevent clinically significant deterioration that could result in: , disability. I provided critical care services requiring my management, as noted below: Chart data review, documentation time, medication orders and management, vital sign assessments/reviewing monitor data, ordering and reviewing lab tests, ordering and interpreting/reviewing x-rays and diagnostic studies, care of the patient and discussion of the patient with the admitting physicians. Medical Decision Making MDM Narrative Medical decision making narrative: Patient is a 72-year-old female who presents with complaint of altered mental status. She did awaken enough to tell us her name but then became completely unresponsive with sonorous, gurgling respirations. She was given 2 mg of Narcan without any response. Glucose was unremarkable. She was then intubated for airway protection and the ET tube was advanced approximately 2 cm after x-ray. CT unremarkable, labs showed dehydration and RODRIGUEZ for which she has been given IV fluids. She has been admitted to the ICU to Dr. Mak, community ambassador on-call, for further evaluation and management of her delirium and dehydration. Medical Screen Exam Complete: Yes Emergency Medical Condition: Yes Differential Diagnosis Differential Diagnosis: Differential diagnosis includes but is not limited to delirium secondary to UTI, stroke, seizure, medication overdose, electrolyte abnormality. Medical Records Medical records reviewed: Yes I reviewed the patient's medical records. Lab Data Result diagrams: 04/21/18 09:12 04/21/18 09:12 Lab Results 04/21/18 04/21/18 04/21/18 Range/Units 09:12 09:12 09:12 WBC 8.5 (4.0-11.0) th/mm3 RBC 3.93 L (4.00-5.30) mil/mm3 Hgb 11.1 L (11.6-15.3) gm/dL Hct 34.4 L (35.0-46.0) % MCV 87.5 (80.0-100.0) fL MCH 28.3 (27.0-34.0) pg MCHC 32.3 (32.0-36.0) % RDW 14.9 (11.6-17.2) % Plt Count 262 (150-450) th/mm3 MPV 8.5 (7.0-11.0) fL Neut % (Auto) 77.1 H (16.0-70.0) % Lymph % (Auto) 16.5 (9.0-44.0) % [place] % (Auto) 5.8 (0.0-8.0) % Eos % (Auto) 0.2 (0.0-4.0) % Baso % (Auto) 0.4 (0.0-2.0) % Neut # (Auto) 6.6 (1.8-7.7) th/mm3 Lymph # (Auto) 1.4 (1.0-4.8) th/mm3 [place] # (Auto) 0.5 (0.0-0.9) th/mm3 Eos # (Auto) 0.0 (0.0-0.4) th/mm3 Baso # (Auto) 0.0 (0.0-0.2) th/mm3 WBC Differential . Differential Comment Auto diff final PT 10.3 (9.8-11.6) sec INR 1.0 Ratio Puncture Site Patient Temperature O2 Saturation (90-100) % ABG pH (7.380-7.420) ABG pCO2 (38-42) mmHg ABG pO2 (61-120) mmHg ABG HCO3 (22-26) mmol/L ABG O2 Content (12.0-20.0) Vol % ABG Base Excess (-2-2) mmol/L ABG Methemoglobin (0-2) % Jordan Test Hemoglobin (12.0-16.0) G/DL Carboxyhemoglobin (0-4) % O2 Delivery Device Vent Setting Inspired O2 % Critical Value Sodium 146 H (136-145) meq/L Potassium 4.2 (3.5-5.1) meq/L Chloride 113 H (98-107) meq/L Carbon Dioxide 19.2 L (21.0-32.0) meq/L Anion Gap 14 (5-15) meq/L BUN 28 H (7-18) mg/dL Creatinine 2.48 H (0.50-1.00) mg/dL Estimated GFR 23 L (>89) mL/min Random Glucose 199 H (74-106) mg/dL Calcium 9.2 (8.5-10.1) mg/dL Total Bilirubin 0.5 (0.2-1.0) mg/dL AST 23 (15-37) U/L ALT 21 (10-53) U/L Alkaline Phosphatase 86 (45-117) U/L Ammonia (11-32) mcmol/L Troponin I Less than 0.02 L (0.02-0.05) ng/mL Total Protein 8.0 (6.4-8.2) g/dL Albumin 4.3 (3.4-5.0) g/dL TSH 1.390 (0.358-3.740) uIU/mL Urine Color (Yellw/Straw) Urine Clarity (Clear) Urine pH (5.0-8.5) Ur Specific [place] (1.002-1.035) Urine Protein (Neg-Trace) mg/dL Urine Glucose (UA) (Negative) mg/dL Urine Ketones (Negative) mg/dL Urine Occult Blood (Negative) Urine Nitrate (Negative) Urine Bilirubin (Negative) Urine Ictotest (Negative) Urine Urobilinogen (Less than 2) mg/dL Ur Leukocyte Esterase (Negative) Urine RBC (0-3) /hpf Urine WBC (0-5) /hpf Ur Squamous Epith Cells (0-5) /hpf Urine Bacteria (None) /hpf Hyaline Casts (0-3) /lpf Micro UA Comment Ur Microscopic Review Urine Culture Comments Salicylates (2.8-20.0) mg/dL Urine Opiates Screen (Neg) Acetaminophen (10.0-30.0) mcg/mL Ur Barbiturates Screen (Neg) Ur Amphetamines Screen (Neg) U Benzodiazepines Scrn (Neg) Urine Cocaine Screen (Neg) U Cannabinoids Screen (Neg) Serum Alcohol Less than 3 (0-5) mg/dL 04/21/18 04/21/18 04/21/18 Range/Units 09:12 09:12 09:12 WBC (4.0-11.0) th/mm3 RBC (4.00-5.30) mil/mm3 Hgb (11.6-15.3) gm/dL Hct (35.0-46.0) % MCV (80.0-100.0) fL MCH (27.0-34.0) pg MCHC (32.0-36.0) % RDW (11.6-17.2) % Plt Count (150-450) th/mm3 MPV (7.0-11.0) fL Neut % (Auto) (16.0-70.0) % Lymph % (Auto) (9.0-44.0) % [place] % (Auto) (0.0-8.0) % Eos % (Auto) (0.0-4.0) % Baso % (Auto) (0.0-2.0) % Neut # (Auto) (1.8-7.7) th/mm3 Lymph # (Auto) (1.0-4.8) th/mm3 [place] # (Auto) (0.0-0.9) th/mm3 Eos # (Auto) (0.0-0.4) th/mm3 Baso # (Auto) (0.0-0.2) th/mm3 WBC Differential Differential Comment PT (9.8-11.6) sec INR Ratio Puncture Site Patient Temperature O2 Saturation (90-100) % ABG pH (7.380-7.420) ABG pCO2 (38-42) mmHg ABG pO2 (61-120) mmHg ABG HCO3 (22-26) mmol/L ABG O2 Content (12.0-20.0) Vol % ABG Base Excess (-2-2) mmol/L ABG Methemoglobin (0-2) % Jordan Test Hemoglobin (12.0-16.0) G/DL Carboxyhemoglobin (0-4) % O2 Delivery Device Vent Setting Inspired O2 % Critical Value Sodium (136-145) meq/L Potassium (3.5-5.1) meq/L Chloride (98-107) meq/L Carbon Dioxide (21.0-32.0) meq/L Anion Gap (5-15) meq/L BUN (7-18) mg/dL Creatinine (0.50-1.00) mg/dL Estimated GFR (>89) mL/min Random Glucose (74-106) mg/dL Calcium (8.5-10.1) mg/dL Total Bilirubin (0.2-1.0) mg/dL AST (15-37) U/L ALT (10-53) U/L Alkaline Phosphatase (45-117) U/L Ammonia 28 (11-32) mcmol/L Troponin I (0.02-0.05) ng/mL Total Protein (6.4-8.2) g/dL Albumin (3.4-5.0) g/dL TSH (0.358-3.740) uIU/mL Urine Color (Yellw/Straw) Urine Clarity (Clear) Urine pH (5.0-8.5) Ur Specific [place] (1.002-1.035) Urine Protein (Neg-Trace) mg/dL Urine Glucose (UA) (Negative) mg/dL Urine Ketones (Negative) mg/dL Urine Occult Blood (Negative) Urine Nitrate (Negative) Urine Bilirubin (Negative) Urine Ictotest (Negative) Urine Urobilinogen (Less than 2) mg/dL Ur Leukocyte Esterase (Negative) Urine RBC (0-3) /hpf Urine WBC (0-5) /hpf Ur Squamous Epith Cells (0-5) /hpf Urine Bacteria (None) /hpf Hyaline Casts (0-3) /lpf Micro UA Comment Ur Microscopic Review Urine Culture Comments Salicylates 3.3 (2.8-20.0) mg/dL Urine Opiates Screen (Neg) Acetaminophen Less than 2.0 L (10.0-30.0) mcg/mL Ur Barbiturates Screen (Neg) Ur Amphetamines Screen (Neg) U Benzodiazepines Scrn (Neg) Urine Cocaine Screen (Neg) U Cannabinoids Screen (Neg) Serum Alcohol (0-5) mg/dL 04/21/18 04/21/18 04/21/18 Range/Units 09:12 09:12 09:53 WBC (4.0-11.0) th/mm3 RBC (4.00-5.30) mil/mm3 Hgb (11.6-15.3) gm/dL Hct (35.0-46.0) % MCV (80.0-100.0) fL MCH (27.0-34.0) pg MCHC (32.0-36.0) % RDW (11.6-17.2) % Plt Count (150-450) th/mm3 MPV (7.0-11.0) fL Neut % (Auto) (16.0-70.0) % Lymph % (Auto) (9.0-44.0) % [place] % (Auto) (0.0-8.0) % Eos % (Auto) (0.0-4.0) % Baso % (Auto) (0.0-2.0) % Neut # (Auto) (1.8-7.7) th/mm3 Lymph # (Auto) (1.0-4.8) th/mm3 [place] # (Auto) (0.0-0.9) th/mm3 Eos # (Auto) (0.0-0.4) th/mm3 Baso # (Auto) (0.0-0.2) th/mm3 WBC Differential Differential Comment PT (9.8-11.6) sec INR Ratio Puncture Site Left radial Patient Temperature 98.6 O2 Saturation 96 (90-100) % ABG pH 7.30 L (7.380-7.420) ABG pCO2 39 (38-42) mmHg ABG pO2 144 H (61-120) mmHg ABG HCO3 18 L (22-26) mmol/L ABG O2 Content 14.1 (12.0-20.0) Vol % ABG Base Excess -7.0 L (-2-2) mmol/L ABG Methemoglobin 0.6 (0-2) % Jordan Test Present Hemoglobin 10.3 L (12.0-16.0) G/DL Carboxyhemoglobin 2.6 (0-4) % O2 Delivery Device Ventilator Vent Setting Prvc/ac Inspired O2 40 % Critical Value No Sodium (136-145) meq/L Potassium (3.5-5.1) meq/L Chloride (98-107) meq/L Carbon Dioxide (21.0-32.0) meq/L Anion Gap (5-15) meq/L BUN (7-18) mg/dL Creatinine (0.50-1.00) mg/dL Estimated GFR (>89) mL/min Random Glucose (74-106) mg/dL Calcium (8.5-10.1) mg/dL Total Bilirubin (0.2-1.0) mg/dL AST (15-37) U/L ALT (10-53) U/L Alkaline Phosphatase (45-117) U/L Ammonia (11-32) mcmol/L Troponin I (0.02-0.05) ng/mL Total Protein (6.4-8.2) g/dL Albumin (3.4-5.0) g/dL TSH (0.358-3.740) uIU/mL Urine Color Yellow (Yellw/Straw) Urine Clarity Cloudy H (Clear) Urine pH 5.0 (5.0-8.5) Ur Specific [place] 1.029 (1.002-1.035) Urine Protein 30 H (Neg-Trace) mg/dL Urine Glucose (UA) Negative (Negative) mg/dL Urine Ketones Trace H (Negative) mg/dL Urine Occult Blood Negative (Negative) Urine Nitrate Negative (Negative) Urine Bilirubin Negative (Negative) Urine Ictotest Negative (Negative) Urine Urobilinogen 2.0 H (Less than 2) mg/dL Ur Leukocyte Esterase Trace H (Negative) Urine RBC 2 (0-3) /hpf Urine WBC 4 (0-5) /hpf Ur Squamous Epith Cells 2 (0-5) /hpf Urine Bacteria Occasional H (None) /hpf Hyaline Casts 30 (0-3) /lpf Micro UA Comment Culture not ind Ur Microscopic Review Not Reportable Urine Culture Comments Culture not ind Salicylates (2.8-20.0) mg/dL Urine Opiates Screen Neg (Neg) Acetaminophen (10.0-30.0) mcg/mL Ur Barbiturates Screen Neg (Neg) Ur Amphetamines Screen Neg (Neg) U Benzodiazepines Scrn Neg (Neg) Urine Cocaine Screen Neg (Neg) U Cannabinoids Screen Neg (Neg) Serum Alcohol (0-5) mg/dL Imaging Data Attestation: I personally reviewed and interpreted this imaging study as follows : My impression: ET tube at the clavicles. It was then advanced 1-2 cm. Radiologist's impression: Cervical Spine CT 04/21/18 08:58 CONCLUSION: Degenerative changes. No evidence of acute bony process in the cervical spine. Chest X-Ray 04/21/18 08:58 CONCLUSION: Satisfactory endotracheal tube positioning. Head CT 04/21/18 08:58 CONCLUSION: 1. Negative CT Head non contrast. . Discharge Plan Discharge Disposition Patient Disposition: 30 Still Patient Discharge Condition Condition: Serious Discharge Details Diagnosis: Altered mental status, RODRIGUEZ (acute kidney injury), Acute dehydration Physicians Team ED Provider: Jennifer Novak Primary Care Provider: UNKNOWN, Attending Provider: Eric Mak Discharge Interventions Interventions: Vital Signs Last Done: 04/21/18 11:00 Status ED Status: Admitted Patient
--- NOTE | 2018-04-21 09:34 | XR ---
EXAM DATE: 04/21/2018 9:28 AM EDT AGE/SEX: 72 years / Female INDICATIONS: Post intubation. CLINICAL DATA: This is the patient's initial encounter. Patient reports that signs and symptoms have been present for 1 day and indicates a pain score of Nonresponsive. MEDICAL/SURGICAL HISTORY: Hypertension. Diabetes II, GERD, heart murmur, UTI, Tonsillectomy. Appendectomy. adenoidectomy, lumbar fusion, spinal cord stimulator, partial hysterectomy. COMPARISON: No prior exams available for comparison. FINDINGS: Endotracheal tube tip is present several centimeters above the maria isabel. Nasogastric tube descends into the stomach. The lungs are focally clear. No pleural effusion evident. Cardiac contours are satisfac tory. CONCLUSION: Satisfactory endotracheal tube positioning. Electronically signed by: Kush Black MD 04/21/2018 9:33 AM EDT
[2018-04-21 09:36] LABS: Baso % (Auto) 0.4 % (0.0-2.0); Eos % (Auto) 0.2 % (0.0-4.0); Hematocrit 34.4 % (35.0-46.0); Hemoglobin 11.1 gm/dL (11.6-15.3); Lymph # (Auto) 1.4 th/mm3 (1.0-4.8); Lymph % (Auto) 16.5 % (9.0-44.0); Mean Corpuscular HGB Conc 32.3 % (32.0-36.0); Mean Corpuscular Hemoglobin 28.3 pg (27.0-34.0); Mean Corpuscular Volume 87.5 fL (80.0-100.0); Mean Platelet Volume 8.5 fL (7.0-11.0); Mono # (Auto) 0.5 th/mm3 (0.0-0.9); Mono % (Auto) 5.8 % (0.0-8.0); Neut # (Auto) 6.6 th/mm3 (1.8-7.7); Neut % (Auto) 77.1 % (16.0-70.0); Platelet Count 262 th/mm3 (150-450); Red Blood Count 3.93 mil/mm3 (4.00-5.30); Red Cell Distribution Width 14.9 % (11.6-17.2); White Blood Count 8.5 th/mm3 (4.0-11.0)
[2018-04-21 09:43] LABS: Bacteria,Urine Occasional /hpf; Clarity,Urine Cloudy (Clear); Color,Urine Yellow (Yellw/Straw); Glucose,Urine (UA) Negative (Negative); Hyaline Casts,Urine 30 /lpf (0-3); Leukocyte Esterase,Urine Trace (Negative); Nitrite,Urine Negative (Negative); Specific Gravity,Urine 1.029 (1.002-1.035); Squamous Epithelial Cell,Urine 2 /hpf (0-5)
[2018-04-21 09:44] LABS: Prothrombin Time 10.3 sec (9.8-11.6)
[2018-04-21 09:46] LABS: Amphetamine Screen,Urine Neg (Neg); Barbiturate Screen,Urine Neg (Neg); Bilirubin,Urine Negative (Negative); Cannabinoid Screen,Urine Neg (Neg); Cocaine Screen,Urine Neg (Neg); Ictotest,Urine Negative (Negative)
[2018-04-21] MEDS: fentaNYL 10 mcg/mL Premix Drip 2,500 MCG/250 ML BAG IV.SIG PRN (09:48)
[2018-04-21 09:53] LABS: Opiate Screen,Urine Neg (Neg)
[2018-04-21 09:58] LABS: Albumin 4.3 g/dL (3.4-5.0); Anion Gap 14 meq/L (5-15); Aspartate Aminotransferase 23 U/L (15-37); Blood Urea Nitrogen 28 mg/dL (7-18); Calcium 9.2 mg/dL (8.5-10.1); Carbon Dioxide 19.2 meq/L (21.0-32.0); Chloride 113 meq/L (98-107); Glomerular Filtration Rate 23 mL/min (>89); Glucose,Random 199 mg/dL (74-106); Potassium 4.2 meq/L (3.5-5.1); Sodium 146 meq/L (136-145)
[2018-04-21 10:03] LABS: ABG PCO2 39 mmHg (38-42); ABG PO2 144 mmHg (61-120)
[2018-04-21 10:08] LABS: Alanine Aminotransferase 21 U/L (10-53); Alkaline Phosphatase 86 U/L (45-117)
[2018-04-21] MEDS ORDERED: Sod Chloride 0.9% Inj 1,000 ML IV.SIG SCH (10:15)
--- NOTE | 2018-04-21 11:30 | CT ---
EXAM DATE: 04/21/2018 11:26 AM EDT AGE/SEX: 72 years / Female INDICATIONS: Unresponsive CLINICAL DATA: This is the patient's initial encounter. Patient reports that signs and symptoms have been present for 1 day and indicates a pain score of Nonresponsive. MEDICAL/SURGICAL HISTORY: Non-responsive. Non-responsive. RADIATION DOSE: 26.38 CTDI (mGy) COMPARISON: No prior exams available for comparison. TECHNIQUE: Contiguous axial images were obtained using helical multirow detector technique. The vol umetric data was post-processed with multiplanar reconstruction in oblique axial, sagittal, and coron al planes. Using automated exposure control and adjustment of the mA and/or kV according to patient s ize, radiation dose was kept as low as reasonably achievable to obtain optimal diagnostic quality thompson ges. DICOM format image data is available electronically for review and comparison. FINDINGS: Cervical spine alignment is satisfactory. There is no evidence of cervical spine fracture. No bony ca nal or foraminal compromise is identified. There is disc space narrowing most notably at C3-4 broad m ild dorsal disc protrusion present at this level. No significant bony canal or foraminal compromise i s present. There is no evidence of paraspinal hematoma. CONCLUSION: Degenerative changes. No evidence of acute bony process in the cervical spine. Electronically signed by: Kush Black MD 04/21/2018 11:28 AM EDT
--- NOTE | 2018-04-21 11:31 | CT ---
EXAM DATE: 04/21/2018 11:23 AM EDT AGE/SEX: 72 years / Female INDICATIONS: Unresponsive CLINICAL DATA: This is the patient's initial encounter. Patient reports that signs and symptoms have been present for 1 day and indicates a pain score of Nonresponsive. MEDICAL/SURGICAL HISTORY: Non-responsive. Non-responsive. RADIATION DOSE: 36.91 CTDI (mGy) COMPARISON: No prior exams available for comparison. TECHNIQUE: CT of the head without contrast. Using automated exposure control and adjustment of the mA and/or kV according to patient size, radiation dose was kept as low as reasonably achievable to ob tain optimal diagnostic quality images. DICOM format image data is available electronically for revi ew and comparison. FINDINGS: Cerebrum: The ventricles are normal for age. No evidence of midline shift, mass lesion, hemorrhage or acute infarction. No extraaxial fluid collections are seen. Posterior Fossa: The cerebellum and brainstem are intact. The 4th ventricle is midline. The cerebe llopontine angle is unremarkable. Extracranial: The visualized portion of the orbits is intact. Skull: The calvaria is intact. No evidence of skull fracture. CONCLUSION: 1. Negative CT Head non contrast. . Electronically signed by: Álvaro Shukla MD 04/21/2018 11:29 AM EDT
[2018-04-21] MEDS ORDERED: Bisacodyl 10 MG Supp RECTAL PRN (11:46)
[2018-04-21] MEDS ORDERED: Dextrose 50% in Water 50 ML Vial IV.PUSH PRN (11:51)
[2018-04-21] MEDS ORDERED: Sod Chloride 0.9% Inj 1,000 ML IV.SIG ONE (11:54)
[2018-04-21] MEDS ORDERED: hydrALAZINE HCl Inj 20 MG/ML Vial IV.PUSH PRN (12:20)
--- NOTE | 2018-04-21 12:35 | P.HPCC ---
History of Present Illness Service: Critical care medicine Primary Care Physician: UNKNOWN Chief Complaint: Altered mental status History of Present Illness: 72-year-old AA female. Date of admission 04/21/2018. Past medical history significant for diabetes mellitus, hypertension, hyperlipidemia, chronic pain syndrome and also osteoarthritis. She presented to [facility] ED today with chief complaint of acute delirium. Per EMS and family last night she was herself but "slightly goofy." This morning she seemed confused and "kid like" before she became completely unresponsive. At that time they called EMS. EMS reports that she has intermittently responded to painful stimuli before she becomes completely unresponsive. Blood glucose was 199. They report normal vital signs. Patient did open her eyes for several seconds and say her name but then did not say any more information before she became completely unresponsive. At that time, patient was intubated by the ED physician. CT brain revealed no acute intracranial findings. CT C-spine unremarkable. Laboratory significant for a creatinine of 2.4 which is above her baseline which is normal, sodium 146 , normocytic anemia. TSH was 1.39. UA was negative. Toxicology screen negative. Salicylates, acetaminophen and alcohol toxicology screen is negative. She is currently bradycardic and hypertensive intubated room C 29. 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 - Medical History Medical History: Medical History (Last Updated 04/21/18 @ 12:41 by Eric Mak MD) Acute kidney injury (nontraumatic) BMI 36.0-36.9,adult Chronic pain syndrome Diabetes mellitus Hyperlipidemia Hypertension Normocytic anemia Peripheral neuropathy - Surgical History Surgical History: Surgical History (Last Updated 04/21/18 @ 12:41 by Eric Mak MD) H/O laminectomy History of appendectomy History of total knee arthroplasty - Family History Family History: Family History (Last Updated 04/21/18 @ 12:43 by Eric Mak MD) Sister Family hx-breast malignancy Brother Family history of pancreatic cancer - Social History I have reviewed the patient's Social History: Yes - Tobacco History Second Hand Smoke Exposure: No Smoking Status: Former smoker Tobacco Type: Cigarettes Packs Per Day: 0.5 Years Smoked: 10 - Alcohol History How Often Do You Have a Drink Containing Alcohol: Unable to Obtain - Substance Use History Substance History: No History of Abuse - Travel History Recent Travel in the [facility] Within the Last 8 Weeks: No Recent Travel Out of the Country Within the Last 8 Weeks: No - Immunization History Tetanus Immunization: Unable to Assess Hx Influenza Vaccine This Season: Unable to Assess Medications and Allergies Active Medications: Active Medications Acetaminophen (Tylenol) 650 mg NG/OG Q6H PRN PRN Reason: FEVER Al Hydroxide/Mg Hydroxide (Milk Of Oralia Saulq) 30 ml PO Q12H PRN PRN Reason: Mild Constipation Albuterol (Albuterol Neb (Prn)) 2.5 mg NEB Q2HR NEB PRN PRN Reason: SHORTNESS OF BREATH/WHEEZING Albuterol (Duoneb Neb (Ten)) 1 ampul NEB Q4HR NEB TEN Last Admin: 04/21/18 12:07 Dose: 1 ampul Artificial Tears (Genteal Severe Dry Eye Relief 0.3% Opth Gel) 1 drops EACH EYE BID [facility] Atorvastatin Calcium (Lipitor) 80 mg PO DAILY [facility] Bisacodyl (Dulcolax Supp) 10 mg RECTAL DAILY PRN PRN Reason: SEVERE CONSITIPATION Chlorhexidine Gluconate (Peridex 0.12% Oral Kit) 15 ml OROPHARYNG BID@0800, 2000 [facility] Chlorhexidine Gluconate (Chlorhexidine 2% Cloth) 3 pack TOPICAL DAILY@0400 TEN Stop: 04/27/18 03:59 Chlorhexidine Gluconate (Chlorhexidine 2% Cloth) 3 pack TOPICAL DAILY@0400 PRN PRN Reason: Extra cloth needed Stop: 04/27/18 03:59 Dextrose (D50w Vial) 50 ml IV.PUSH UNSCH PRN PRN Reason: PER HYPOGLYCEMIA PROTOCOL Ezetimibe (Zetia) 10 mg PO DAILY [facility] Enoxaparin Sodium (Lovenox Inj) 40 mg SQ Q24H [facility] Glucagon (Glucagon Inj) 1 mg OTHER PRN PRN PRN Reason: for Hypoglycemia Protocol Hydralazine HCl (Apresoline Inj) 10 mg IV.PUSH Q1H PRN PRN Reason: SBP>160, DBP>90 Propofol (Diprivan 1000 Mg/100 Ml Inj) 1,000 mg in 100 mls @ 3.538 mls/hr IV.CONT TITRATE STA; Protocol Stop: 04/22/18 13:15 Last Titration: 04/21/18 10:25 Dose: 30 mcg/kg/min, 21.23 mls/hr Fentanyl (Fentanyl 10 Mcg/Ml Premix Drip) 2,500 mcg in 250 mls @ 5 mls/hr IV.SIG TITRATE PRN; Protocol PRN Reason: Per Protocol Last Admin: 04/21/18 09:48 Dose: 50 mcg/hr, 5 mls/hr Sodium Chloride (Ns Inj) 1,000 mls @ 0 mls/hr IV.SIG BOLUS TEN Last Infusion: 04/21/18 11:46 Dose: Infused Fentanyl (Fentanyl 10 Mcg/Ml Premix Drip) 2,500 mcg in 250 mls @ 5 mls/hr IV.SIG TITRATE PRN; Protocol PRN Reason: Per Protocol Sodium Chloride (Ns Inj) 1,000 mls @ 84 mls/hr IV.CONT .[id number] [facility] Propofol (Diprivan 1000 Mg/100 Ml Inj) 1,000 mg in 100 mls @ 3.538 mls/hr IV.CONT TITRATE PRN; Protocol PRN Reason: Per Protocol Multivitamins 10 ml/ Thiamine HCl 100 mg/ Folic Acid 1 mg/Sodium Chloride 511.2 mls @ 125 mls/hr IV.SIG Q24H TEN Stop: 04/23/18 18:06 Nicardipine HCl 25 mg/ Sodium (Chloride) 250 mls @ 25 mls/hr IV.CONT TITRATE PRN; Protocol PRN Reason: Per Protocol Insulin Aspart (Novolog Insulin Correctional Sugar Inj) 0 unit SQ Q6HR TEN; Protocol Lactulose (Lactulose Liq) 30 ml PO DAILY PRN PRN Reason: SEVERE CONSITIPATION Lansoprazole (Prevacid Solutab) 30 mg NG/OG DAILY [facility] Nitroglycerin (Nitro-Bid 2% Oint) 2 inch TOPICAL Q6HR PRN PRN Reason: SBP>160, DBP>90 Ondansetron HCl (Zofran Inj) 4 mg IV.PUSH Q6H PRN PRN Reason: NAUSEA OR VOMITING Senna/Docusate Sodium (Petrona-Colace) 1 tab PO BID [facility] Sennosides (Senokot) 17.2 mg PO Q12H PRN PRN Reason: Moderate Constipation Sodium Chloride (Ns Flush) 2 ml IV.FLUSH PRN PRN PRN Reason: FLUSH AFTER USING IV ACCESS Last Admin: 04/21/18 09:23 Dose: 2 ml Sodium Chloride (Ns Flush) 2 ml IV.FLUSH BID TEN Sodium Chloride (Ns Flush) 2 ml IV.FLUSH PRN PRN PRN Reason: FLUSH AFTER USING IV ACCESS Allergies Allergy/AdvReac Type Severity Reaction Status Date / Time clams Allergy Severe lips Verified 04/21/18 10:24 swelling and itching penicillin G Allergy Severe WELTS, Verified 04/21/18 10:24 SWELLING, PRURITIS alprazolam AdvReac Severe HALLUCINATI Verified 04/21/18 10:24 ONS Home Medications Medication Instructions Recorded Confirmed Type atorvastatin 80 mg PO DAILY 04/21/18 04/21/18 History baclofen 10 mg PO TID 04/21/18 04/21/18 History celecoxib 200 mg PO DAILY 04/21/18 04/21/18 History ezetimibe 10 mg PO DAILY 04/21/18 04/21/18 History gabapentin 100 mg PO TID 04/21/18 04/21/18 History glimepiride 1 mg PO QAM 04/21/18 04/21/18 History metformin 1,000 mg PO BID 04/21/18 04/21/18 History metoprolol tartrate 25 mg PO BID 04/21/18 04/21/18 History Results - Labs CBC & Chem 7: 04/21/18 09:12 04/21/18 09:12 Labs: Short CBC 04/21/18 Range/Units 09:12 WBC 8.5 (4.0-11.0) th/mm3 Hgb 11.1 L (11.6-15.3) gm/dL Hct 34.4 L (35.0-46.0) % Plt Count 262 (150-450) th/mm3 [facility] 04/21/18 09:12 Sodium 146 H Potassium 4.2 Chloride 113 H Carbon Dioxide 19.2 L BUN 28 H Creatinine 2.48 H Calcium 9.2 Cardiac Enzymes 04/21/18 Range/Units 09:12 Troponin I Less than 0.02 L (0.02-0.05) ng/mL Liver Function 04/21/18 Range/Units 09:12 Total Bilirubin 0.5 (0.2-1.0) mg/dL AST 23 (15-37) U/L ALT 21 (10-53) U/L Alkaline Phosphatase 86 (45-117) U/L Albumin 4.3 (3.4-5.0) g/dL Urine 04/21/18 Range/Units 09:12 Urine Color Yellow (Yellw/Straw) Urine Clarity Cloudy H (Clear) Urine pH 5.0 (5.0-8.5) Ur Specific [place] 1.029 (1.002-1.035) Urine Protein 30 H (Neg-Trace) mg/dL Urine Glucose (UA) Negative (Negative) mg/dL - Imaging Impressions Cervical Spine CT 04/21/18 08:58 CONCLUSION: Degenerative changes. No evidence of acute bony process in the cervical spine. Chest X-Ray 04/21/18 08:58 CONCLUSION: Satisfactory endotracheal tube positioning. Head CT 04/21/18 08:58 CONCLUSION: 1. Negative CT Head non contrast. . Exam Vital signs: Vital Signs 04/21/18 08:49 04/21/18 08:54 04/21/18 08:58 Temperature 98.7 F Pulse Rate 55 L 54 L Respiratory Rate 15 15 15 Blood Pressure 125/63 142/63 H Pulse Oximetry 98 100 04/21/18 08:59 04/21/18 09:02 04/21/18 09:04 Temperature Pulse Rate 70 80 70 Respiratory Rate 33 H 33 H 21 Blood Pressure 146/65 H 187/79 H 177/75 H Pulse Oximetry 100 100 04/21/18 09:12 04/21/18 09:15 04/21/18 09:16 Temperature Pulse Rate 76 Respiratory Rate 21 17 Blood Pressure 135/62 Pulse Oximetry 100 100 98 04/21/18 09:27 04/21/18 09:36 04/21/18 09:52 Temperature Pulse Rate 54 L 58 L 58 L Respiratory Rate 16 22 24 Blood Pressure 135/64 127/63 125/61 Pulse Oximetry 100 100 100 04/21/18 10:00 04/21/18 11:00 04/21/18 11:20 Temperature Pulse Rate 52 L 48 L Respiratory Rate 16 16 Blood Pressure 116/56 L 166/73 H Pulse Oximetry 100 100 100 04/21/18 12:07 Temperature Pulse Rate 46 L Respiratory Rate 16 Blood Pressure Pulse Oximetry Intake & Output 04/20/18 04/21/18 04/21/18 18:59 06:59 18:59 Intake Total 1000 / 1000 Balance 1000 / 1000 Weight 117.934 kg Intake: IV 1000 / 1000 NS Inj 1,000 ML @ Wide Open IV. 1000 / 1000 SIG BOLUS TEN Rx#:[id number] - Constitutional no acute distress - Routine HEENT Exam Head: Present: normocephalic, atraumatic Eye: Present: EOMI, PERRL, normal accommodation ENT: Present: mucous membranes moist - Routine Neck Exam Present: supple. Absent: JVD, carotid bruit - Routine Chest/Breast/Axilla Exam Chest wall: Absent: tenderness Breast: Absent: tenderness Axillae: Absent: lymphadenopathy - Routine Respiratory Exam Present: CTA bilaterally. Absent: accessory muscle use, rhonchi - Routine Cardiovascular Exam Present: S1, S2, bradycardia. Absent: murmur - Routine Abdominal Exam Present: soft, normoactive bowel sounds. Absent: organomegaly - Routine Extremities Exam Absent: cyanosis, clubbing, edema - Routine Skin Exam Present: intact - Routine Neurological Exam Absent: alert, oriented X3, CN II-XII intact, sensory deficit, motor deficit - Routine Psychiatric Exam Present: unable to assess Septic Shock Reassessment Septic shock perfusion: reassessment completed Caprini VTE Risk Assessment Caprini VTE Risk Assessment: Moderate/High Risk (score >= 2) Caprini Risk Assessment Model: Point Value = 1 Point Value = 2 Point Value = 3 Point Value = 5 Age 41-60 Minor surgery BMI > 25 kg/m2 Swollen legs Varicose veins or History of unexplained or recurrent spontaneous Oral contraceptives or hormone replacement Sepsis (< 1 month) Serious lung disease, including pneumonia (< 1 month) Abnormal pulmonary function Acute myocardial infarction Congestive heart failure (< 1 month) History of inflammatory bowel disease Medical patient at bed rest Age 61-74 Arthroscopic surgery Major open surgery (> 45 min) Laparoscopic surgery (> 45 min) Malignancy Confined to bed (> 72 hours) Immobilizing plaster cast Central venous access Age >= 75 History of VTE Family history of VTE Factor V Leiden Prothrombin [id number] Lupus anticoagulant Anticardiolipin antibodies Elevated serum homocysteine Heparin-induced thrombocytopenia Other congenital or acquired thrombophilia Stroke (< 1 month) Elective arthroplasty Hip, pelvis, or leg fracture Acute spinal cord injury (< 1 month) Prophylaxis Regimen: Total Risk Factor Score Risk Level Prophylaxis Regimen 0-1 Low Early ambulation 2 Moderate Order ONE of the following: *Sequential Compression Device (SCD) *Heparin 5000 units SQ BID 3-4 Higher Order ONE of the following medications: *Heparin 5000 units SQ TID *Enoxaparin/Lovenox 40 mg SQ daily (WT < 150 kg, CrCl > 30 mL/min) *Enoxaparin/Lovenox 30 mg SQ daily (WT < 150 kg, CrCl > 10-29 mL/min) *Enoxaparin/Lovenox 30 mg SQ BID (WT < 150 kg, CrCl > 30 mL/min) AND/OR *Sequential Compression Device (SCD) 5 or more Highest Order ONE of the following medications: *Heparin 5000 units SQ TID (Preferred with Epidurals) *Enoxaparin/Lovenox 40 mg SQ daily (WT < 150 kg, CrCl > 30 mL/min) *Enoxaparin/Lovenox 30 mg SQ daily (WT < 150 kg, CrCl > 10-29 mL/min) *Enoxaparin/Lovenox 30 mg SQ BID (WT < 150 kg, CrCl > 30 mL/min) AND *Sequential Compression Device (SCD) Assessment and Plan - Assessment and Plan Plan: Neuro/Psych: Acute delirium Chronic pain syndrome Peripheral neuropathy Currently a propofol/fentanyl drips for sedation/analgesia while intubated Goal of RASS -[address] brain revealed no acute intracranial findings. CT C-spine negative MRI brain/MRA head and neck ordered EEG ordered Holding gabapentin 100 mg 3 times daily and baclofen 10 mg twice daily with altered mental status. Urine toxicology screen negative. Alcohol, salicylates and acetaminophen negative CV: Sinus bradycardia History of essential hypertension Hyperlipidemia Holding atorvastatin 80 mg daily for dyslipidemia. Resume when clinically indicated Holding ezetimibe 10 mg daily for dyslipidemia. Patient is on metoprolol tartrate 25 mg daily. Resume clinically indicated As needed hydralazine, Nitropaste and nicardipine drip for hypertension if needed Initial troponin less than 0.02 Resp: Acute respiratory failure secondary to altered mental status [facility] 16/08/13/34 Ventilator bundle Albuterol/ipratropium aerosols every 4 hours with albuterol aerosols every 2 hours as needed for dyspnea Spontaneous breathing trials when clinically indicated GI: NG tube to low intermittent wall suction Lansoprazole for GI prophylaxis Docusate sodium/senna 1 tablet twice daily for bowel regimen : Trivedi catheter for accurate I's and O's in a critically ill patient Endo: Diabetes mellitus Acute hyperglycemia Sliding scale insulin for Accu-Cheks to maintain euglycemia/insulin aspart every 6 hours medium protocol TSH was 1.39 Holding metformin 1000 mg twice daily and glimepiride 1 mg daily for diabetes. Resume when clinically indicated Renal: Acute kidney injury Baseline creatinine around 1.0 Check renal ultrasound and urine sodium, creatinine and eosinophils pending Heme: Normocytic anemia Monitor CBC daily. Follow trends No indication for transfusion of blood products at this time ID: Blood cultures 2 ordered. UA negative. Monitor for signs and symptomatology infection MSK: Osteoarthritis Elevate BMI Weight loss encouraged PT evaluate and treat FEN: Hypernatremia Replace electrolytes as clinically indicated Currently normal saline at 84 cc an hour Access -Utilize peripheral IV. Central line if indicated Prophylaxis -GI -lansoprazole -DVT SCDs/enoxaparin Critical care time 35 minutes
--- NOTE | 2018-04-21 12:41 | US ---
EXAM DATE: 04/21/2018 12:35 PM EDT AGE/SEX: 72 years / Female INDICATIONS: Increased lab values. CLINICAL DATA: This is the patient's initial encounter. Patient reports that signs and symptoms have been present for 1 day and indicates a pain score of 0/10. MEDICAL/SURGICAL HISTORY: None. Increased kidney lab values. None. COMPARISON: [facility], US ABDOMEN COMPLETE, 11/08/2015. . MEASUREMENTS: Right Kidney:__11.8 x 5.3 x 5.8 cm Left Kidney:__9.2 x 5.1 x 4.8 cm FINDINGS: Right Kidney: Normal echotexture and cortical thickness. No mass or hydronephrosis. Left Kidney: Normal echotexture and cortical thickness. No mass or hydronephrosis. Bladder: Trivedi catheter is present. Bladder decompressed. Other: None. CONCLUSION: 1. Smaller left kidney otherwise unremarkable appearance bilaterally. 2. Bladder is decompressed by a Trivedi catheter. Electronically signed by: Shahzad Santillan MD 04/21/2018 12:40 PM EDT
[2018-04-21] MEDS ORDERED: fentaNYL 10 mcg/mL Premix Drip 2,500 MCG/250 ML BAG IV.SIG PRN (13:00)
[2018-04-21] MEDS: Propofol 1000 mg/100 ml Inj 1,000 MG/100 ML BOTTLE IV.CONT PRN ×2 (13:00→18:01)
[2018-04-21] MEDS: Oral Hygiene Kit OROPHARYNG SCH ×2 (13:59→15:25)
[2018-04-21] MEDS: Insulin NovoLOG Aspart Correctional Sugar Inj SQ SCH ×2 (13:59→18:14)
[2018-04-21] MEDS: Enoxaparin Inj 40 MG/0.4 ML Syringe SQ SCH (13:59)
[2018-04-21] MEDS: Sod Chloride 0.9% Inj 1,000 ML IV.CONT SCH (14:00)
[2018-04-21 14:10] LABS: Creatinine,Urine Random 369 mg/dL (27-300)
--- NOTE | 2018-04-21 16:32 | MR ---
EXAM DATE: 04/21/2018 4:26 PM EDT AGE/SEX: 72 years / Female INDICATIONS: Altered mental status. CLINICAL DATA: This is the patient's initial encounter. Patient reports that signs and symptoms have been present for 1 day and indicates a pain score of Nonresponsive. MEDICAL/SURGICAL HISTORY: Non-responsive. Non-responsive. COMPARISON: [facility] – [place], MRA HEAD W/O CONTRAST, 04/21/2018. . TECHNIQUE: Multiplanar, multisequence examination of the brain was performed without contrast. FINDINGS: Cerebrum: The ventricles are normal for age. No evidence of midline shift, mass lesion, hemorrhage or acute infarction. No extraaxial fluid collections are seen. The pituitary gland and suprasellar cistern are normal in configuration. White Matter: No significant signal abnormalities are seen in the white matter. Posterior Fossa: The cerebellum and brainstem are intact. The 4th ventricle is midline. The cerebel lopontine angle is unremarkable. The cerebellar tonsils are normal in position. Diffusion Imaging: No focal areas of restricted diffusion are seen. No evidence of acute infarction . Extracranial: The visualized portions of the orbits and paranasal sinuses are unremarkable. CONCLUSION: 1. Negative MR Brain non contrast. Electronically signed by: Jarrett Mcelroy MD 04/21/2018 4:31 PM EDT
--- NOTE | 2018-04-21 16:35 | MR ---
EXAM DATE: 04/21/2018 4:26 PM EDT AGE/SEX: 72 years / Female INDICATIONS: Altered mental status. CLINICAL DATA: This is the patient's initial encounter. Patient reports that signs and symptoms have been present for 1 day and indicates a pain score of 0/10. MEDICAL/SURGICAL HISTORY: Non-responsive. Non-responsive. COMPARISON: [facility] [place] W/O CONTRAST, 04/21/2018. . TECHNIQUE: 3D [id number] MRA was performed. Source images, multiplanar STS MIP, and 3D volum e MIP reconstructions were reviewed. FINDINGS: There is excellent visualization of the major intracranial arteries out to the second-order branch ve ssels. There is no evidence for aneurysm, vessel truncation or stenosis, and no evidence for vascula r malformation. The left vertebral artery is dominant. Prominent right posterior communicating artery . CONCLUSION: 1. Negative MRA [place] ([place] [facility] [place]) non contrast without evidence of aneurysm. Prominent right po sterior communicating artery. Electronically signed by: Jarrett Mcelroy MD 04/21/2018 4:33 PM EDT
[2018-04-21] MEDS: Multivitamin Inj 10 ML, Thiamine Inj 100 MG, Folic Acid Inj 1 MG in Sodium Chlor 0.9% I... IV.SIG SCH (17:02)
--- NOTE | 2018-04-21 17:28 | MR ---
EXAM DATE: 04/21/2018 5:24 PM EDT AGE/SEX: 72 years / Female INDICATIONS: Altered mental status. CLINICAL DATA: This is the patient's initial encounter. Patient reports that signs and symptoms have been present for 1 day and indicates a pain score of Nonresponsive. MEDICAL/SURGICAL HISTORY: Non-responsive. Non-responsive. COMPARISON: [facility] – [place], [place] CERVICAL SPINE W/O CONTRAST, 04/21/2018. [facility] – [place], MR HEAD W/O CONTRAST, 04/21/20 18. . TECHNIQUE: 3D time-of- flight MRA of the extracranial circulation was performed using a neurovascul ar coil. Post processing was performed including rotating sub-volume maximum intensity projections o f each carotid artery, rotating full-volume maximum intensity projections of both carotid arteries, s agittal and coronal sliding thin-slab reformations of each carotid artery, and left oblique sliding t hin-slab reformation through the aortic arch to include the origin of the arch branch vessels. FINDINGS: Aortic Arch : There is a three-vessel origin of the great vessels from the aorta. No evidence of o stial narrowing. Right Carotid : The common carotid artery is intact. The carotid bulb has a normal configuration wi thout ulceration or narrowing. The internal carotid artery lumen is smooth without stenosis. The ex ternal carotid artery is intact. Left Carotid : The common carotid artery is intact. The carotid bulb has a normal configuration wit hout ulceration or narrowing. The internal carotid artery lumen is smooth without stenosis. The ext ernal carotid artery is intact. Vertebrals : A dominant left vertebral artery is identified. The right vertebral artery is not well evaluated. It is markedly diminutive in caliber. It appears to end in the posterior inferior cerebell ar artery. CONCLUSION: 1. Markedly diminutive, not well evaluated right vertebral artery. 2. The bilateral carotid arteries and left vertebral artery are widely patent. Percent stenosis is calculated using the diameter of the stenotic region over the diameter of the nor mal distal internal carotid artery Electronically signed by: Shahzad Santillan MD 04/21/2018 5:26 PM EDT
--- NOTE | 2018-04-21 18:28 | ECG ---
Date Performed: 04/21/2018 Time Performed: 10:37:34 PTAGE: 72 years EKG: SINUS BRADYCARDIA BORDERLINE ECG PREVIOUS TRACING : 09/15/2011 14.06 Compared to previous tracing, sinus bradycardia is new DOCTOR: Joshua Steele Interpretating Date/Time 04/21/2018 18:27:37
[2018-04-21 19:45] LABS: CKMB Percent 1.2 % (0.0-4.0); Creatine Kinase MB 4.2 ng/mL (0.5-3.6)
[2018-04-21] MEDS: hydrALAZINE 25 MG Tablet PO PRN ×2 (20:06→23:50)
[2018-04-21] MEDS: Senna/Docusate Sodium 8.6/50 MG Tablet PO SCH (20:11)
--- NOTE | 2018-04-21 20:37 | MG ---
cc: Kori Matamoros MD EEG NUMBER: [id number]. REFERRING PHYSICIAN: Eric Mak MD ROOM: 510 Photic done, 50 mcg Diprivan, [address]. [address] is negative. DESCRIPTION OF RECORD: Noted that the patient is intubated on a ventilator, sedated. There is overall 2 Hz background rhythm, consistent with what looks like delta waves. There is some artifact. I do not see any epileptiform features. EEG is between predominantly theta waves and some suppression of the background as well at times. Photic stimulation no driving response. IMPRESSION: Abnormal EEG due to moderately severe slowing of the background, consistent with either medicine effect versus severe encephalopathy. Clinical correlation. Kori Matamoros MD DF/rm/do , 07:03 PM , 07:08 PM
[2018-04-21] MEDS ORDERED: Hypromellose 0.3% Opth Gel 10 GM Bottle EACH EYE SCH (21:00)
[2018-04-21] MEDS: Chlorhexidine 0.12% Oral Kit 15 ML UDC OROPHARYNG SCH (23:50)
[2018-04-22] MEDS: Insulin NovoLOG Aspart Correctional Sugar Inj SQ SCH ×4 (00:10→17:25)
[2018-04-22] MEDS: Oral Hygiene Kit OROPHARYNG SCH ×3 (00:11→17:26)
[2018-04-22] MEDS: fentaNYL 10 mcg/mL Premix Drip 2,500 MCG/250 ML BAG IV.SIG PRN (01:10)
[2018-04-22] MEDS: Propofol 1000 mg/100 ml Inj 1,000 MG/100 ML BOTTLE IV.CONT PRN ×7 (02:00→22:55)
[2018-04-22] MEDS ORDERED: Chlorhexidine Gluconate 2% 1 Pack (2 Cloths) TOPICAL PRN (04:00)
--- NOTE | 2018-04-22 04:12 | XR ---
EXAM DATE: 04/22/2018 3:44 AM EDT AGE/SEX: 72 years / Female INDICATIONS: Respiratory distress CLINICAL DATA: This is the patient's subsequent encounter. Patient reports that signs and symptoms h ave been present for 1 day and indicates a pain score of Nonresponsive. MEDICAL/SURGICAL HISTORY: . Hypertension. Diabetes II. GERD. Heart murmur. . Appendectomy. Crystal noidectomy. [place] [facility] [place]. . FINDINGS: Stable ETT and NGT coursing beyond the GE junction. Minimal airspace disease at the left lung base. C ardiomediastinal contours are within normal limits. Bony thorax is intact. CONCLUSION: 1. Stable ETT and NGT. 2. Minimal left lung base airspace disease, likely atelectasis. Electronically signed by: Rock Riley MD 04/22/2018 4:11 AM EDT
[2018-04-22 04:26] LABS: Baso # (Auto) 0.1 th/mm3 (0.0-0.2); Baso % (Auto) 0.7 % (0.0-2.0); Eos # (Auto) 0.1 th/mm3 (0.0-0.4); Hematocrit 30.6 % (35.0-46.0); Hemoglobin 9.8 gm/dL (11.6-15.3); Lymph # (Auto) 2.6 th/mm3 (1.0-4.8); Lymph % (Auto) 25.5 % (9.0-44.0); Mean Corpuscular HGB Conc 32.2 % (32.0-36.0); Mean Corpuscular Hemoglobin 28.2 pg (27.0-34.0); Mean Corpuscular Volume 87.6 fL (80.0-100.0); Mean Platelet Volume 8.3 fL (7.0-11.0); Mono % (Auto) 9.4 % (0.0-8.0); Neut # (Auto) 6.5 th/mm3 (1.8-7.7); Neut % (Auto) 63.4 % (16.0-70.0); Platelet Count 206 th/mm3 (150-450); Red Blood Count 3.49 mil/mm3 (4.00-5.30); Red Cell Distribution Width 15.2 % (11.6-17.2); White Blood Count 10.3 th/mm3 (4.0-11.0)
[2018-04-22 04:47] LABS: Alanine Aminotransferase 21 U/L (10-53); Albumin 3.3 g/dL (3.4-5.0); Alkaline Phosphatase 68 U/L (45-117); Anion Gap 10 meq/L (5-15); Aspartate Aminotransferase 23 U/L (15-37); Blood Urea Nitrogen 21 mg/dL (7-18); Calcium 8.2 mg/dL (8.5-10.1); Carbon Dioxide 21.3 meq/L (21.0-32.0); Chloride 118 meq/L (98-107); Glomerular Filtration Rate 56 mL/min (>89); Glucose,Random 110 mg/dL (74-106); Phosphorus 3.1 mg/dL (2.5-4.9); Potassium 3.7 meq/L (3.5-5.1); Sodium 149 meq/L (136-145); Total Protein 6.8 g/dL (6.4-8.2)
[2018-04-22] MEDS: Chlorhexidine Gluconate 2% 1 Pack (2 Cloths) TOPICAL SCH (06:29)
[2018-04-22] MEDS: Carboxymethylcellulose 0.5% Opth Drops 15 ML Bottle EACH EYE SCH ×3 (06:29→20:16)
[2018-04-22] MEDS: Sod Chloride 0.9% Inj 1,000 ML IV.CONT SCH ×2 (07:22→17:26)
[2018-04-22] MEDS: Ezetimibe 10 MG Tablet PO SCH (08:08)
[2018-04-22] MEDS: Senna/Docusate Sodium 8.6/50 MG Tablet PO SCH ×2 (08:08→20:16)
[2018-04-22] MEDS: Chlorhexidine 0.12% Oral Kit 15 ML UDC OROPHARYNG SCH ×2 (08:09→20:16)
--- NOTE | 2018-04-22 09:56 | P.PNCC ---
Subjective Subjective Remarks/Hospital Course: 72-year-old AA female. Date of admission 04/21/2018. Past medical history significant for diabetes mellitus, hypertension, hyperlipidemia, chronic pain syndrome and also osteoarthritis. She presented to [facility] ED today with chief complaint of acute delirium. Per EMS and family last night she was herself but "slightly goofy." This morning she seemed confused and "kid like" before she became completely unresponsive. At that time they called EMS. EMS reports that she has intermittently responded to painful stimuli before she becomes completely unresponsive. Blood glucose was 199. They report normal vital signs. Patient did open her eyes for several seconds and say her name but then did not say any more information before she became completely unresponsive. At that time, patient was intubated by the ED physician. CT brain revealed no acute intracranial findings. CT C-spine unremarkable. Laboratory significant for a creatinine of 2.4 which is above her baseline which is normal, sodium 146 , normocytic anemia. TSH was 1.39. UA was negative. Toxicology screen negative. Salicylates, acetaminophen and alcohol toxicology screen is negative. She is currently bradycardic and hypertensive intubated room C 29. Subjective 04/22: Currently resting in bed in no acute distress. Remains on dexmedetomidine drip and propofol drip for sedation/analgesia. White cell count normal. Afebrile. When sedation less than patient appears to see her directly but not following commands. Moving all 4 extremities spontaneously. Objective Vital Signs / I&O: Vital Signs 04/21/18 09:52 04/21/18 10:00 04/21/18 11:00 Temperature Pulse Rate 58 L 52 L 48 L Respiratory Rate 24 16 16 Blood Pressure 125/61 116/56 L 166/73 H Pulse Oximetry 100 100 100 04/21/18 11:20 04/21/18 12:07 04/21/18 13:02 Temperature Pulse Rate 46 L 50 L Respiratory Rate 16 16 Blood Pressure 162/72 H Pulse Oximetry 100 100 04/21/18 13:25 04/21/18 13:32 04/21/18 13:48 Temperature 97.8 F Pulse Rate 55 L Respiratory Rate 16 23 16 Blood Pressure 143/96 H Pulse Oximetry 97 100 04/21/18 14:00 04/21/18 16:57 04/21/18 18:00 Temperature Pulse Rate 51 L 43 L Respiratory Rate 17 Blood Pressure Pulse Oximetry 100 04/21/18 19:58 04/21/18 20:00 04/21/18 20:10 Temperature 98.3 F Pulse Rate 44 L 44 L Respiratory Rate 16 31 H 16 Blood Pressure 198/79 H Pulse Oximetry 100 100 04/21/18 22:00 04/21/18 22:28 04/21/18 23:42 Temperature Pulse Rate 48 L 88 Respiratory Rate 16 19 Blood Pressure Pulse Oximetry 100 04/22/18 00:00 04/22/18 01:28 04/22/18 02:00 Temperature 98.7 F Pulse Rate 57 L 53 L Respiratory Rate 21 16 Blood Pressure 183/78 H Pulse Oximetry 100 100 04/22/18 04:00 04/22/18 04:04 04/22/18 04:30 Temperature 99.0 F Pulse Rate 50 L 50 L Respiratory Rate 16 16 16 Blood Pressure 125/60 Pulse Oximetry 100 100 04/22/18 06:00 04/22/18 07:00 04/22/18 07:10 Temperature Pulse Rate 55 L 54 L 120 H Respiratory Rate 16 20 Blood Pressure 146/67 H 187/82 H Pulse Oximetry 100 79 L 04/22/18 07:12 04/22/18 07:18 04/22/18 07:20 Temperature Pulse Rate 95 H 84 Respiratory Rate 17 17 19 Blood Pressure 176/70 H Pulse Oximetry 100 04/22/18 07:30 04/22/18 07:40 04/22/18 07:51 Temperature Pulse Rate 63 62 110 H Respiratory Rate 18 16 34 H Blood Pressure 166/73 H 145/66 H 122/65 Pulse Oximetry 100 100 100 04/22/18 08:00 04/22/18 08:11 04/22/18 08:20 Temperature Pulse Rate 74 66 64 Respiratory Rate 21 23 17 Blood Pressure 165/72 H 156/65 H 140/65 Pulse Oximetry 100 100 100 04/22/18 08:30 04/22/18 08:40 04/22/18 08:50 Temperature Pulse Rate 64 61 99 H Respiratory Rate 18 18 18 Blood Pressure 129/61 129/60 177/77 H Pulse Oximetry 99 99 100 04/22/18 09:00 04/22/18 09:10 Temperature Pulse Rate 60 59 L Respiratory Rate 17 16 Blood Pressure 144/64 H 130/63 Pulse Oximetry 100 100 Intake & Output 04/21/18 04/22/18 04/22/18 18:59 06:59 18:59 Intake Total 2200 / 2200 1950 / 1950 111.2 / 111.2 Output Total 1200 / 1200 825 / 825 Balance 1000 / 1000 1125 / 1125 111.2 / 111.2 Weight 117 kg 117.5 kg Intake: IV 2200 / 2200 1950 / 1950 111.2 / 111.2 Diprivan 1000 mg/100 ml Inj 1, 200 / 200 200 / 200 100 / 100 000 mg In 100 ml @ 5 MCG/KG/MIN 3.538 mls/hr IV.CONT TITRATE PRN Rx#:[id number] NS Inj 1,000 ML @ 84 mls/hr IV. 1000 / 1000 CONT .[id number] [facility] Rx#:[id number] MVI-12 Inj 10 ML Thiamine Inj 500 / 500 11.2 / 11.2 100 MG Folvite Inj 1 MG In NS Inj 500 ML @ 125 mls/hr IV.SIG Q24H [facility] Rx#:[id number] NS Inj 1,000 ML @ Wide Open IV. 1999 / 1999 [facility] Rx#:[id number] fentaNYL 10 mcg/mL Premix Drip 250 / 250 2,500 mcg In 250 ml @ 50 MCG/HR 5 mls/hr IV.SIG TITRATE PRN Rx #:[id number] Oral 0 / 0 0 / 0 Output: Urine 600 / 600 825 / 825 Urine Amount (Catheter) 600 / 600 Indwelling Urethral Catheter 600 / 600 Other: # Bowel Movements 0 Weight On Admission 117 kg Result Diagrams: 04/22/18 03:25 04/22/18 03:25 Imaging: Abdomen/Bladder Ultrasound 04/21/18 00:00 CONCLUSION: 1. Smaller left kidney otherwise unremarkable appearance bilaterally. 2. Bladder is decompressed by a Trivedi catheter. Head MRI 04/21/18 00:00 CONCLUSION: 1. Negative MR Brain non contrast. Head MRA 04/21/18 00:00 CONCLUSION: 1. Negative MRA [facility] ([place] [facility] [place]) non contrast without evidence of aneurysm. Prominent right posterior communicating artery. Neck MRA 04/21/18 00:00 CONCLUSION: 1. Markedly diminutive, not well evaluated right vertebral artery. 2. The bilateral carotid arteries and left vertebral artery are widely patent. _ Percent stenosis is calculated using the diameter of the stenotic region over the diameter of the normal distal internal carotid artery _ Cervical Spine CT 04/21/18 08:58 CONCLUSION: Degenerative changes. No evidence of acute bony process in the cervical spine. Chest X-Ray 04/21/18 08:58 CONCLUSION: Satisfactory endotracheal tube positioning. Head CT 04/21/18 08:58 CONCLUSION: 1. Negative CT Head non contrast. . Chest X-Ray 04/22/18 06:00 CONCLUSION: 1. Stable ETT and NGT. 2. Minimal left lung base airspace disease, likely atelectasis. Objective Remarks: GENERAL: 72-year-old female SKIN: Warm and dry. HEAD: Atraumatic. Normocephalic. EYES: Pupils equal and round. No scleral icterus. No injection or drainage. ENT: No nasal bleeding or discharge. Mucous membranes pink and moist. NECK: Trachea midline. No JVD. CARDIOVASCULAR: Regular rate and rhythm. S1, S2. No S4. RESPIRATORY: No accessory muscle use. Clear to auscultation. Breath sounds equal bilaterally. GASTROINTESTINAL: Abdomen soft, non-tender, obese MUSCULOSKELETAL: Extremities with trace bilateral upper and lower extremity nonpitting edema. No obvious deformities. NEUROLOGICAL: Arousable on ventilator but not following commands. Moves all 4 extremities spontaneously.. PSYCHIATRIC: Unable to assess. Assessment and Plan - Assessment and Plan Plan: Neuro/Psych: Acute delirium Chronic pain syndrome Peripheral neuropathy Currently a propofol/fentanyl and dexmedetomidine drips drips for sedation/ analgesia while intubated Goal of RASS -[address] brain revealed no acute intracranial findings. CT C-spine negative MRI brain/MRA head and neck revealed diminutive right vertebral brain otherwise negative EEG reviewed 6 severe encephalopathy likely medication effect Holding gabapentin 100 mg 3 times daily and baclofen 10 mg twice daily with altered mental status. Urine toxicology screen negative. Alcohol, salicylates and acetaminophen negative Lumbar puncture if indicated CV: Sinus bradycardia History of essential hypertension Hyperlipidemia Holding atorvastatin 80 mg daily for dyslipidemia. Resume when clinically indicated Holding ezetimibe 10 mg daily for dyslipidemia. Patient is on metoprolol tartrate 25 mg daily. Resume clinically indicated As needed hydralazine, Nitropaste and nicardipine drip for hypertension if needed Initial troponin less than 0.02 Resp: Acute respiratory failure secondary to altered mental status [facility] 16/08/13/34 Ventilator bundle Albuterol/ipratropium aerosols every 4 hours with albuterol aerosols every 2 hours as needed for dyspnea Spontaneous breathing trials when clinically indicated GI: NG tube to low intermittent wall suction Lansoprazole for GI prophylaxis Docusate sodium/senna 1 tablet twice daily for bowel regimen : Trivedi catheter for accurate I's and O's in a critically ill patient Endo: Diabetes mellitus Acute hyperglycemia Sliding scale insulin for Accu-Cheks to maintain euglycemia/insulin aspart every 6 hours medium protocol TSH was 1.39 Holding metformin 1000 mg twice daily and glimepiride 1 mg daily for diabetes. Resume when clinically indicated Renal: Acute kidney injury Baseline creatinine around 1.0. Currently 1.16 Negative renal ultrasound and urine eosinophils Heme: Normocytic anemia Monitor CBC daily. Follow trends No indication for transfusion of blood products at this time ID: Blood cultures 2 ordered. UA negative. Monitor for signs and symptomatology infection MSK: Osteoarthritis Elevate BMI Weight loss encouraged PT evaluate and treat FEN: Hypernatremia Replace electrolytes as clinically indicated Currently normal saline at 84 cc an hour Access -Utilize peripheral IV. Central line if indicated Prophylaxis -GI -lansoprazole -DVT SCDs/enoxaparin Critical care time 35 minutes
[2018-04-22] MEDS: Dexmedetomidine Inj 200 MCG in Sodium Chlor 0.9% Inj 48 ML IV.CONT PRN ×3 (16:22→22:54)
[2018-04-22] MEDS: Multivitamin Inj 10 ML, Thiamine Inj 100 MG, Folic Acid Inj 1 MG in Sodium Chlor 0.9% I... IV.SIG SCH (17:28)
[2018-04-22] MEDS: Enoxaparin Inj 40 MG/0.4 ML Syringe SQ SCH (17:28)
[2018-04-23] MEDS: Oral Hygiene Kit OROPHARYNG SCH ×4 (00:30→16:44)
[2018-04-23] MEDS: Insulin NovoLOG Aspart Correctional Sugar Inj SQ SCH ×4 (00:30→17:11)
[2018-04-23] MEDS: Chlorhexidine Gluconate 2% 1 Pack (2 Cloths) TOPICAL SCH (03:58)
[2018-04-23] MEDS: Sod Chloride 0.9% Inj 1,000 ML IV.CONT SCH (03:58)
[2018-04-23] MEDS: Dexmedetomidine Inj 200 MCG in Sodium Chlor 0.9% Inj 48 ML IV.CONT PRN ×2 (04:09→07:57)
[2018-04-23] MEDS: Propofol 1000 mg/100 ml Inj 1,000 MG/100 ML BOTTLE IV.CONT PRN (04:12)
[2018-04-23] MEDS: Chlorhexidine 0.12% Oral Kit 15 ML UDC OROPHARYNG SCH ×2 (08:42→21:30)
[2018-04-23] MEDS: Carboxymethylcellulose 0.5% Opth Drops 15 ML Bottle EACH EYE SCH ×2 (08:43→21:30)
[2018-04-23] MEDS: Ezetimibe 10 MG Tablet PO SCH (08:43)
[2018-04-23] MEDS: hydrALAZINE 25 MG Tablet PO PRN (08:43)
[2018-04-23] MEDS: Senna/Docusate Sodium 8.6/50 MG Tablet PO SCH ×2 (08:43→21:30)
--- NOTE | 2018-04-23 09:41 | P.PNCC ---
Subjective Subjective Remarks/Hospital Course: 72-year-old AA female. Date of admission 04/21/2018. Past medical history significant for diabetes mellitus, hypertension, hyperlipidemia, chronic pain syndrome and also osteoarthritis. She presented to [facility] ED today with chief complaint of acute delirium. Per EMS and family last night she was herself but "slightly goofy." This morning she seemed confused and "kid like" before she became completely unresponsive. At that time they called EMS. EMS reports that she has intermittently responded to painful stimuli before she becomes completely unresponsive. Blood glucose was 199. They report normal vital signs. Patient did open her eyes for several seconds and say her name but then did not say any more information before she became completely unresponsive. At that time, patient was intubated by the ED physician. CT brain revealed no acute intracranial findings. CT C-spine unremarkable. Laboratory significant for a creatinine of 2.4 which is above her baseline which is normal, sodium 146 , normocytic anemia. TSH was 1.39. UA was negative. Toxicology screen negative. Salicylates, acetaminophen and alcohol toxicology screen is negative. She is currently bradycardic and hypertensive intubated room C 29. 04/22: Currently resting in bed in no acute distress. Remains on dexmedetomidine drip and propofol drip for sedation/analgesia. White cell count normal. Afebrile. When sedation less than patient appears to see her directly but not following commands. Moving all 4 extremities spontaneously. Subjective 04/23: Afebrile. Currently arousable and following commands on dexmedetomidine drip. Will attempt extubation today. A.m. labs pending Objective Vital Signs / I&O: Vital Signs 04/22/18 09:40 04/22/18 09:50 04/22/18 10:00 Temperature Pulse Rate 59 L 59 L 59 L Respiratory Rate 18 19 20 Blood Pressure 110/56 L 112/57 L 111/54 L Pulse Oximetry 100 100 100 04/22/18 10:10 04/22/18 10:20 04/22/18 10:30 Temperature Pulse Rate 58 L 57 L 85 Respiratory Rate 20 18 19 Blood Pressure 114/55 L 114/57 L 146/65 H Pulse Oximetry 100 100 100 04/22/18 10:40 04/22/18 10:50 04/22/18 11:00 Temperature Pulse Rate 63 59 L 61 Respiratory Rate 20 20 20 Blood Pressure 130/57 L 137/62 126/60 Pulse Oximetry 100 100 100 04/22/18 11:11 04/22/18 11:20 04/22/18 11:30 Temperature Pulse Rate 58 L 58 L 55 L Respiratory Rate 21 21 22 Blood Pressure 116/58 L 109/55 L 118/56 L Pulse Oximetry 100 100 100 04/22/18 11:40 04/22/18 11:50 04/22/18 12:00 Temperature Pulse Rate 54 L 57 L 54 L Respiratory Rate 21 24 22 Blood Pressure 105/54 L 110/53 L 108/52 L Pulse Oximetry 100 100 100 04/22/18 12:10 04/22/18 12:20 04/22/18 12:30 Temperature Pulse Rate 54 L 54 L 54 L Respiratory Rate 23 23 20 Blood Pressure 107/53 L 108/53 L 126/58 L Pulse Oximetry 100 100 100 04/22/18 13:24 04/22/18 13:31 04/22/18 13:40 Temperature Pulse Rate 66 109 H 65 Respiratory Rate 17 18 19 Blood Pressure 187/79 H 149/67 H Pulse Oximetry 100 100 100 04/22/18 13:50 04/22/18 14:00 04/22/18 14:10 Temperature Pulse Rate 62 62 62 Respiratory Rate 22 21 23 Blood Pressure 150/68 H 129/60 121/58 L Pulse Oximetry 100 100 100 04/22/18 14:20 04/22/18 14:30 04/22/18 14:40 Temperature Pulse Rate 61 61 60 Respiratory Rate 24 23 33 H Blood Pressure 120/58 L 117/57 L 123/59 L Pulse Oximetry 99 100 99 04/22/18 14:50 04/22/18 15:00 04/22/18 15:10 Temperature Pulse Rate 59 L 59 L 59 L Respiratory Rate 25 H 26 H 28 H Blood Pressure 115/58 L 112/57 L 119/62 Pulse Oximetry 100 99 99 04/22/18 15:20 04/22/18 15:23 04/22/18 15:30 Temperature Pulse Rate 63 78 60 Respiratory Rate 35 H 20 22 Blood Pressure 122/60 134/64 Pulse Oximetry 100 100 99 04/22/18 15:40 04/22/18 15:50 04/22/18 16:00 Temperature Pulse Rate 61 63 62 Respiratory Rate 23 23 24 Blood Pressure 132/61 121/58 L 121/58 L Pulse Oximetry 99 99 98 04/22/18 16:10 04/22/18 16:21 04/22/18 16:30 Temperature Pulse Rate 61 112 H 91 H Respiratory Rate 23 24 20 Blood Pressure 170/84 H 171/78 H Pulse Oximetry 98 100 100 04/22/18 16:40 04/22/18 16:50 04/22/18 17:00 Temperature Pulse Rate 60 60 59 L Respiratory Rate 21 20 22 Blood Pressure 132/63 128/57 L 125/60 Pulse Oximetry 99 99 100 04/22/18 17:10 04/22/18 17:20 04/22/18 17:30 Temperature Pulse Rate 58 L 59 L 57 L Respiratory Rate 22 22 23 Blood Pressure 121/56 L 118/59 L 118/58 L Pulse Oximetry 100 99 99 04/22/18 17:40 04/22/18 17:50 04/22/18 18:00 Temperature Pulse Rate 59 L 57 L 57 L Respiratory Rate 24 24 24 Blood Pressure 124/60 130/62 129/63 Pulse Oximetry 99 99 99 04/22/18 18:10 04/22/18 18:34 04/22/18 18:40 Temperature Pulse Rate 56 L 55 L 53 L Respiratory Rate 24 24 27 H Blood Pressure 133/62 142/63 H 154/60 H Pulse Oximetry 99 99 99 04/22/18 18:50 04/22/18 19:00 04/22/18 19:10 Temperature Pulse Rate 67 53 L 53 L Respiratory Rate 21 24 25 H Blood Pressure 163/74 H 178/74 H 158/69 H Pulse Oximetry 99 100 100 04/22/18 19:20 04/22/18 19:30 04/22/18 19:40 Temperature Pulse Rate 53 L 53 L 52 L Respiratory Rate 24 26 H 26 H Blood Pressure 155/69 H 150/67 H 146/66 H Pulse Oximetry 99 99 99 04/22/18 19:50 04/22/18 20:00 04/22/18 20:10 Temperature 97.5 F L Pulse Rate 51 L 51 L 51 L Respiratory Rate 26 H 26 H 26 H Blood Pressure 148/65 H 145/65 H 143/60 H Pulse Oximetry 99 99 99 04/22/18 20:20 04/22/18 20:29 04/22/18 20:30 Temperature Pulse Rate 51 L 51 L 51 L Respiratory Rate 25 H 24 25 H Blood Pressure 143/66 H 143/67 H Pulse Oximetry 99 99 04/22/18 20:40 04/22/18 20:50 04/22/18 21:00 Temperature Pulse Rate 50 L 51 L 52 L Respiratory Rate 26 H 27 H 27 H Blood Pressure 146/68 H 141/65 H 143/70 H Pulse Oximetry 99 99 99 04/22/18 21:10 04/22/18 21:20 04/22/18 21:30 Temperature Pulse Rate 52 L 52 L 51 L Respiratory Rate 26 H 26 H 26 H Blood Pressure 142/66 H 143/67 H 143/65 H Pulse Oximetry 99 99 99 04/22/18 21:40 04/22/18 21:49 04/22/18 21:50 Temperature Pulse Rate 51 L 50 L Respiratory Rate 26 H 24 26 H Blood Pressure 144/65 H 151/67 H Pulse Oximetry 99 99 99 04/22/18 22:00 04/22/18 22:10 04/22/18 22:20 Temperature Pulse Rate 51 L 50 L 49 L Respiratory Rate 25 H 25 H 26 H Blood Pressure 150/68 H 153/63 H 147/66 H Pulse Oximetry 100 100 100 04/22/18 22:30 04/22/18 22:40 04/22/18 22:50 Temperature Pulse Rate 49 L 49 L 48 L Respiratory Rate 22 25 H 27 H Blood Pressure 142/65 H 142/65 H 141/61 H Pulse Oximetry 100 100 100 04/22/18 23:00 04/22/18 23:10 04/22/18 23:16 Temperature Pulse Rate 48 L 48 L 48 L Respiratory Rate 27 H 27 H 24 Blood Pressure 138/64 135/62 Pulse Oximetry 100 100 04/22/18 23:20 04/22/18 23:30 04/22/18 23:40 Temperature Pulse Rate 47 L 48 L 48 L Respiratory Rate 24 25 H 22 Blood Pressure 140/65 143/61 H 140/66 Pulse Oximetry 100 100 100 04/22/18 23:50 04/23/18 00:00 04/23/18 00:10 Temperature 96 F L 95.5 F L Pulse Rate 52 L 50 L 48 L Respiratory Rate 18 22 19 Blood Pressure 158/71 H 160/68 H 170/84 H Pulse Oximetry 100 100 100 04/23/18 00:20 04/23/18 00:30 04/23/18 00:40 Temperature 95.5 F L 95.5 F L 95.5 F L Pulse Rate 49 L 49 L 49 L Respiratory Rate 23 22 20 Blood Pressure 176/84 H 179/84 H 182/85 H Pulse Oximetry 100 100 99 04/23/18 00:50 04/23/18 01:00 04/23/18 01:10 Temperature 95.5 F L 95.5 F L 95.5 F L Pulse Rate 49 L 48 L 48 L Respiratory Rate 23 24 26 H Blood Pressure 184/82 H 188/85 H 191/83 H Pulse Oximetry 98 99 98 04/23/18 01:20 04/23/18 01:30 04/23/18 01:40 Temperature 95.5 F L 95.5 F L 95.5 F L Pulse Rate 48 L 48 L 47 L Respiratory Rate 26 H 27 H 26 H Blood Pressure 180/79 H 185/79 H 190/63 H Pulse Oximetry 98 98 98 04/23/18 01:50 04/23/18 02:00 04/23/18 02:10 Temperature 95.4 F L 95.5 F L 95.4 F L Pulse Rate 47 L 47 L 47 L Respiratory Rate 27 H 25 H 26 H Blood Pressure 188/82 H 185/83 H 183/83 H Pulse Oximetry 98 99 99 04/23/18 02:20 04/23/18 02:30 04/23/18 02:40 Temperature 95.4 F L 95.4 F L 95.4 F L Pulse Rate 47 L 46 L 46 L Respiratory Rate 27 H 27 H 27 H Blood Pressure 184/86 H 198/77 H 206/91 H Pulse Oximetry 99 99 99 04/23/18 02:51 04/23/18 03:00 04/23/18 03:01 Temperature 95.4 F L 95.4 F L 95.4 F L Pulse Rate 46 L 45 L 45 L Respiratory Rate 27 H 16 16 Blood Pressure 182/79 H 173/106 H Pulse Oximetry 99 100 100 04/23/18 03:10 04/23/18 03:20 04/23/18 03:31 Temperature 95.2 F L 95.4 F L 95.2 F L Pulse Rate 46 L 45 L 45 L Respiratory Rate 16 16 16 Blood Pressure 183/87 H 182/92 H 184/81 H Pulse Oximetry 100 100 100 04/23/18 03:41 04/23/18 03:51 04/23/18 04:00 Temperature 95.4 F L 95.2 F L 95.2 F L Pulse Rate 46 L 45 L 48 L Respiratory Rate 16 16 16 Blood Pressure 190/86 H 185/83 H Pulse Oximetry 100 100 100 04/23/18 04:01 04/23/18 04:11 04/23/18 04:20 Temperature 95.4 F L 95.4 F L 95.4 F L Pulse Rate 47 L 48 L 50 L Respiratory Rate 16 16 16 Blood Pressure 196/86 H 185/82 H 188/86 H Pulse Oximetry 100 100 100 04/23/18 05:30 04/23/18 06:00 04/23/18 07:48 Temperature Pulse Rate 52 L 49 L Respiratory Rate 16 20 Blood Pressure Pulse Oximetry 100 04/23/18 07:55 04/23/18 09:34 Temperature Pulse Rate 58 L Respiratory Rate 23 Blood Pressure Pulse Oximetry 100 Intake & Output 04/22/18 04/23/18 04/23/18 18:59 06:59 18:59 Intake Total 1411.2 / 1411.2 1350 / 1350 50 / 50 Output Total 850 / 850 200 / 200 Balance 561.2 / 561.2 1150 / 1150 50 / 50 Weight 121.5 kg Intake: IV 1411.2 / 1411.2 1350 / 1350 50 / 50 Precedex Inj 200 MCG In NS Inj 150 / 150 50 / 50 48 ML @ 0.2 MCG/KG/HR 5.87 mls/ hr IV.CONT TITRATE PRN Rx#: [id number] Diprivan 1000 mg/100 ml Inj 1, 400 / 400 200 / 200 000 mg In 100 ml @ 5 MCG/KG/MIN 3.538 mls/hr IV.CONT TITRATE PRN Rx#:[id number] NS Inj 1,000 ML @ 84 mls/hr IV. 1000 / 1000 1000 / 1000 CONT .[id number] [facility] Rx#:[id number] MVI-12 Inj 10 ML Thiamine Inj 11.2 / 11.2 100 MG Folvite Inj 1 MG In NS Inj 500 ML @ 125 mls/hr IV.SIG Q24H [facility] Rx#:[id number] fentaNYL 10 mcg/mL Premix Drip 0 / 0 2,500 mcg In 250 ml @ 50 MCG/HR 5 mls/hr IV.SIG TITRATE PRN Rx #:[id number] Oral 0 / 0 0 / 0 Output: Urine 850 / 850 200 / 200 Other: # Voids 0 Result Diagrams: 04/22/18 03:25 04/22/18 03:25 Other Results: Microbiology 04/21/18 18:40 Blood - Peripheral Aerobic Blood Culture - Preliminary No growth in 1 day 04/21/18 18:40 Blood - Peripheral Anaerobic Blood Culture - Preliminary No growth in 1 day 04/21/18 18:50 Blood - Peripheral Aerobic Blood Culture - Preliminary No growth in 1 day 04/21/18 18:50 Blood - Peripheral Anaerobic Blood Culture - Preliminary No growth in 1 day Imaging: Abdomen/Bladder Ultrasound 04/21/18 00:00 CONCLUSION: 1. Smaller left kidney otherwise unremarkable appearance bilaterally. 2. Bladder is decompressed by a Trivedi catheter. Head MRI 04/21/18 00:00 CONCLUSION: 1. Negative MR Brain non contrast. Head MRA 04/21/18 00:00 CONCLUSION: 1. Negative MRA [facility] ([facility] [place]) non contrast without evidence of aneurysm. Prominent right posterior communicating artery. Neck MRA 04/21/18 00:00 CONCLUSION: 1. Markedly diminutive, not well evaluated right vertebral artery. 2. The bilateral carotid arteries and left vertebral artery are widely patent. _ Percent stenosis is calculated using the diameter of the stenotic region over the diameter of the normal distal internal carotid artery _ Cervical Spine CT 04/21/18 08:58 CONCLUSION: Degenerative changes. No evidence of acute bony process in the cervical spine. Chest X-Ray 04/21/18 08:58 CONCLUSION: Satisfactory endotracheal tube positioning. Head CT 04/21/18 08:58 CONCLUSION: 1. Negative CT Head non contrast. . Chest X-Ray 04/22/18 06:00 CONCLUSION: 1. Stable ETT and NGT. 2. Minimal left lung base airspace disease, likely atelectasis. Objective Remarks: GENERAL: 72-year-old AA female currently orotracheally intubated SKIN: Warm and dry. HEAD: Atraumatic. Normocephalic. EYES: Pupils equal and round. No scleral icterus. No injection or drainage. ENT: No nasal bleeding or discharge. Mucous membranes pink and moist. NECK: Trachea midline. No JVD. CARDIOVASCULAR: Regular rate and rhythm. S1, S2. No S4. RESPIRATORY: No accessory muscle use. Clear to auscultation. Breath sounds equal bilaterally. GASTROINTESTINAL: Abdomen soft, non-tender, obese MUSCULOSKELETAL: Extremities with trace bilateral upper and lower extremity nonpitting edema. No obvious deformities. NEUROLOGICAL: Arousable on ventilator and following simple commands. Moves all 4 extremities spontaneously.. PSYCHIATRIC: Unable to assess. Assessment and Plan - Assessment and Plan Plan: Neuro/Psych: Acute delirium Chronic pain syndrome Peripheral neuropathy Currently a propofol/fentanyl and dexmedetomidine drips drips for sedation/ analgesia while intubated Goal of RASS -[address] brain revealed no acute intracranial findings. CT C-spine negative MRI brain/MRA head and neck revealed diminutive right vertebral brain otherwise negative EEG reviewed 6 severe encephalopathy likely medication effect Holding gabapentin 100 mg 3 times daily and baclofen 10 mg twice daily with altered mental status. Urine toxicology screen negative. Alcohol, salicylates and acetaminophen negative Lumbar puncture if indicated. Noted that patient 2 of 5 available siblings refused 04/22 CV: Sinus bradycardia History of essential hypertension Hyperlipidemia Continue atorvastatin 80 mg daily for dyslipidemia. Resume when clinically indicated Continue ezetimibe 10 mg daily for dyslipidemia. Patient is on metoprolol tartrate 25 mg daily. Resume clinically indicated As needed hydralazine, Nitropaste and nicardipine drip for hypertension if needed Initial troponin less than 0.02 Resp: Acute respiratory failure secondary to altered mental status [facility] 16/08/13/34 Ventilator bundle Albuterol/ipratropium aerosols every 4 hours with albuterol aerosols every 2 hours as needed for dyspnea Spontaneous breathing trials when clinically indicated Extubation today follows GI: Hypoalbuminemia NG tube to low intermittent wall suction Lansoprazole for GI prophylaxis Docusate sodium/senna 1 tablet twice daily for bowel regimen : Trivedi catheter for accurate I's and O's in a critically ill patient Endo: Diabetes mellitus Acute hyperglycemia Sliding scale insulin for Accu-Cheks to maintain euglycemia/insulin aspart every 6 hours medium protocol TSH was 1.39 Holding metformin 1000 mg twice daily and glimepiride 1 mg daily for diabetes. Resume when clinically indicated Renal: Acute kidney injury Baseline creatinine around 1.0. Currently 1.16 Negative renal ultrasound and urine eosinophils Heme: Normocytic anemia Monitor CBC daily. Follow trends No indication for transfusion of blood products at this time ID: Blood cultures 2 ordered. UA negative. Monitor for signs and symptomatology infection MSK: Osteoarthritis Elevate BMI Weight loss encouraged PT evaluate and treat FEN: Hypernatremia Hypocalcemia Replace electrolytes as clinically indicated Currently lactated Ringer's at 42 cc an hour Access -Utilize peripheral IV. Central line if indicated Prophylaxis -GI -lansoprazole -DVT SCDs/enoxaparin Critical care time 35 minutes
[2018-04-23 10:35] LABS: Baso % (Auto) 0.3 % (0.0-2.0); Eos # (Auto) 0.2 th/mm3 (0.0-0.4); Eos % (Auto) 1.3 % (0.0-4.0); Hematocrit 36.6 % (35.0-46.0); Hemoglobin 11.6 gm/dL (11.6-15.3); Lymph # (Auto) 1.9 th/mm3 (1.0-4.8); Lymph % (Auto) 15.2 % (9.0-44.0); Mean Corpuscular HGB Conc 31.6 % (32.0-36.0); Mean Corpuscular Hemoglobin 27.8 pg (27.0-34.0); Mean Corpuscular Volume 88.2 fL (80.0-100.0); Mean Platelet Volume 8.1 fL (7.0-11.0); Mono # (Auto) 1.2 th/mm3 (0.0-0.9); Mono % (Auto) 9.9 % (0.0-8.0); Neut # (Auto) 8.9 th/mm3 (1.8-7.7); Neut % (Auto) 73.3 % (16.0-70.0); Platelet Count 155 th/mm3 (150-450); Red Blood Count 4.15 mil/mm3 (4.00-5.30); Red Cell Distribution Width 15.3 % (11.6-17.2); White Blood Count 12.2 th/mm3 (4.0-11.0)
[2018-04-23 10:52] LABS: Carbon Dioxide 19.2 meq/L (21.0-32.0)
[2018-04-23] MEDS: niCARdipine Inj 25 MG in Sodium Chlor 0.9% Inj 240 ML IV.CONT PRN ×4 (11:19→20:25)
[2018-04-23] MEDS: Gabapentin 100 MG Capsule PO SCH ×2 (13:30→17:11)
[2018-04-23] MEDS: Enoxaparin Inj 40 MG/0.4 ML Syringe SQ SCH (13:30)
[2018-04-23] MEDS: Multivitamin Inj 10 ML, Thiamine Inj 100 MG, Folic Acid Inj 1 MG in Sodium Chlor 0.9% I... IV.SIG SCH (13:35)
--- NOTE | 2018-04-23 14:40 | XR ---
EXAM DATE: 04/23/2018 2:30 PM EDT AGE/SEX: 72 years / Female INDICATIONS: Right foot pain, no known injury. CLINICAL DATA: This is the patient's initial encounter. Patient reports that signs and symptoms have been present for 1 day and indicates a pain score of 7/10. MEDICAL/SURGICAL HISTORY: None. None. COMPARISON: No prior exams available for comparison. FINDINGS: 2 views of the right foot show valgus angulation at the MTP joint of the great toe. Joint space narro wing is also noted. No fracture or dislocation. Soft tissues are unremarkable. No radiopaque foreign body. Spurring of the calcaneus. CONCLUSION: No acute abnormality. Electronically signed by: Cullen Singleton MD 04/23/2018 2:39 PM EDT
--- NOTE | 2018-04-23 16:38 | US ---
EXAM DATE: 04/23/2018 4:31 PM EDT AGE/SEX: 72 years / Female INDICATIONS: Bilateral leg swelling. CLINICAL DATA: This is the patient's subsequent encounter. Patient reports that signs and symptoms h ave been present for 1 week and indicates a pain score of 5/10. MEDICAL/SURGICAL HISTORY: Hypertension. Acute kidney injury. Diabetes. Hyperlipidemia. Anemia. Neuropathy. Appendectomy. Laminectomy. Total knee arthroplasty. COMPARISON: [facility] [place], [place] LEG LEFT VENOUS DOPPLER, 09/09/2016. . TECHNIQUE: Venous ultrasound of both lower extremities was performed from the inguinal ligament to t he proximal calf. Real-time, color Doppler and spectral tracing, compression and augmentation techni ques were used. FINDINGS: Right Leg: Normal compression of the deep venous system from the inguinal region to the proximal maria fernanda f. No echogenic clot is seen. Normal response of the venous system to augmentation and respiration. Left Leg: Normal compression of the deep venous system from the inguinal region to the proximal calf . No echogenic clot is seen. Normal response of the venous system to augmentation and respiration. Other: None. CONCLUSION: No evidence of lower extremity DVT on the right or left. Electronically signed by: Dheeraj Vann MD 04/23/2018 4:37 PM EDT
[2018-04-23] MEDS: Acetaminophen Inj 650 MG/65 ML VIAL IV.SIG PRN (17:15)
[2018-04-23] MEDS: Metoprolol Tartrate 25 MG Tablet PO SCH (21:30)
[2018-04-23] MEDS: niCARdipine Inj 50 MG in Sodium Chlor 0.9% Inj 480 ML IV.CONT PRN (22:22)
[2018-04-24] MEDS: Insulin NovoLOG Aspart Correctional Sugar Inj SQ SCH ×4 (00:55→19:49)
[2018-04-24] MEDS: Oral Hygiene Kit OROPHARYNG SCH ×4 (00:55→18:14)
[2018-04-24] MEDS: niCARdipine Inj 50 MG in Sodium Chlor 0.9% Inj 480 ML IV.CONT PRN ×2 (02:34→06:18)
[2018-04-24] MEDS: Acetaminophen Inj 650 MG/65 ML VIAL IV.SIG PRN (03:22)
[2018-04-24] MEDS: Chlorhexidine Gluconate 2% 1 Pack (2 Cloths) TOPICAL SCH (03:57)
[2018-04-24 06:00] LABS: Baso # (Auto) 0.1 th/mm3 (0.0-0.2); Baso % (Auto) 0.5 % (0.0-2.0); Eos # (Auto) 0.1 th/mm3 (0.0-0.4); Eos % (Auto) 0.9 % (0.0-4.0); Hemoglobin 9.1 gm/dL (11.6-15.3); Lymph # (Auto) 2.2 th/mm3 (1.0-4.8); Lymph % (Auto) 18.9 % (9.0-44.0); Mean Corpuscular HGB Conc 32.3 % (32.0-36.0); Mean Corpuscular Hemoglobin 27.8 pg (27.0-34.0); Mean Corpuscular Volume 86.1 fL (80.0-100.0); Mean Platelet Volume 8.5 fL (7.0-11.0); Mono # (Auto) 1.9 th/mm3 (0.0-0.9); Mono % (Auto) 16.5 % (0.0-8.0); Neut # (Auto) 7.4 th/mm3 (1.8-7.7); Neut % (Auto) 63.2 % (16.0-70.0); Platelet Count 198 th/mm3 (150-450); Red Blood Count 3.26 mil/mm3 (4.00-5.30); Red Cell Distribution Width 14.8 % (11.6-17.2); White Blood Count 11.6 th/mm3 (4.0-11.0)
[2018-04-24 06:27] LABS: Alanine Aminotransferase 23 U/L (10-53); Albumin 2.8 g/dL (3.4-5.0); Anion Gap 9 meq/L (5-15); Aspartate Aminotransferase 30 U/L (15-37); Blood Urea Nitrogen 7 mg/dL (7-18); Calcium 8.2 mg/dL (8.5-10.1); Carbon Dioxide 19.3 meq/L (21.0-32.0); Chloride 119 meq/L (98-107); Glomerular Filtration Rate 64 mL/min (>89); Glucose,Random 127 mg/dL (74-106); Magnesium 1.5 mg/dL (1.5-2.5); Potassium 3.3 meq/L (3.5-5.1); Sodium 147 meq/L (136-145)
[2018-04-24 06:29] LABS: Alkaline Phosphatase 86 U/L (45-117); Total Protein 6.6 g/dL (6.4-8.2)
[2018-04-24] MEDS: Senna/Docusate Sodium 8.6/50 MG Tablet PO SCH ×2 (10:24→21:01)
[2018-04-24] MEDS: Gabapentin 100 MG Capsule PO SCH ×3 (10:25→18:14)
[2018-04-24] MEDS: Metoprolol Tartrate 25 MG Tablet PO SCH (10:26)
[2018-04-24] MEDS: Carboxymethylcellulose 0.5% Opth Drops 15 ML Bottle EACH EYE SCH ×2 (10:26→21:02)
[2018-04-24] MEDS: Ezetimibe 10 MG Tablet PO SCH (10:26)
--- NOTE | 2018-04-24 13:29 | P.PNCC ---
Subjective Subjective Remarks/Hospital Course: 72-year-old AA female. Date of admission 04/21/2018. Past medical history significant for diabetes mellitus, hypertension, hyperlipidemia, chronic pain syndrome and also osteoarthritis. She presented to [facility] ED today with chief complaint of acute delirium. Per EMS and family last night she was herself but "slightly goofy." This morning she seemed confused and "kid like" before she became completely unresponsive. At that time they called EMS. EMS reports that she has intermittently responded to painful stimuli before she becomes completely unresponsive. Blood glucose was 199. They report normal vital signs. Patient did open her eyes for several seconds and say her name but then did not say any more information before she became completely unresponsive. At that time, patient was intubated by the ED physician. CT brain revealed no acute intracranial findings. CT C-spine unremarkable. Laboratory significant for a creatinine of 2.4 which is above her baseline which is normal, sodium 146 , normocytic anemia. TSH was 1.39. UA was negative. Toxicology screen negative. Salicylates, acetaminophen and alcohol toxicology screen is negative. She is currently bradycardic and hypertensive intubated room C 29. 04/22: Currently resting in bed in no acute distress. Remains on dexmedetomidine drip and propofol drip for sedation/analgesia. White cell count normal. Afebrile. When sedation less than patient appears to see her directly but not following commands. Moving all 4 extremities spontaneously. Subjective 04/23: Afebrile. Currently arousable and following commands on dexmedetomidine drip. Will attempt extubation today. A.m. labs pending 04/24: Lying in bed no acute distress. Not on Precedex, following commands. Very weak and lethargic, but breathing comfortably. Remains on Cardene infusion at 10 mg/h Objective Vital Signs / I&O: Vital Signs 04/23/18 13:45 04/23/18 14:00 04/23/18 16:00 Temperature 98.8 F Pulse Rate 110 H 129 H 117 H Respiratory Rate 16 26 H Blood Pressure 168/70 H Pulse Oximetry 97 04/23/18 18:00 04/23/18 20:00 04/23/18 21:25 Temperature 100.2 F H Pulse Rate 122 H 115 H 98 H Respiratory Rate 28 H 18 Blood Pressure 152/66 H Pulse Oximetry 97 100 04/23/18 22:00 04/24/18 00:00 04/24/18 02:00 Temperature 100.2 F H Pulse Rate 110 H 93 H 102 H Respiratory Rate 25 H Blood Pressure 154/67 H Pulse Oximetry 95 04/24/18 03:56 04/24/18 04:00 04/24/18 04:19 Temperature 99.1 F Pulse Rate 93 H 92 H Respiratory Rate 21 26 H 20 Blood Pressure 137/63 Pulse Oximetry 95 04/24/18 06:00 04/24/18 07:47 04/24/18 08:00 Temperature 99.5 F Pulse Rate 91 H 86 96 H Respiratory Rate 18 26 H Blood Pressure 142/65 H Pulse Oximetry 99 98 04/24/18 09:00 04/24/18 10:00 04/24/18 11:20 Temperature Pulse Rate 95 H 90 72 Respiratory Rate 16 Blood Pressure Pulse Oximetry 04/24/18 12:00 Temperature 99.5 F Pulse Rate 68 Respiratory Rate 21 Blood Pressure 120/58 L Pulse Oximetry 98 Intake & Output 04/23/18 04/24/18 04/24/18 18:59 06:59 18:59 Intake Total 2787.4 / 2787.4 1565 / 1565 Output Total 2350 / 2350 3450 / 3450 Balance 437.4 / 437.4 -1885 / -1885 Weight 119.5 kg Intake: IV 2787.4 / 2787.4 1565 / 1565 Precedex Inj 200 MCG In NS Inj 100 / 100 48 ML @ 0.2 MCG/KG/HR 5.87 mls/ hr IV.CONT TITRATE PRN Rx#: [id number] Diprivan 1000 mg/100 ml Inj 1, 50 / 50 000 mg In 100 ml @ 5 MCG/KG/MIN 3.538 mls/hr IV.CONT TITRATE PRN Rx#:[id number] NS Inj 1,000 ML @ 84 mls/hr IV. 1000 / 1000 CONT .[id number] KARELY Rx#:[id number] Cardene Inj 25 MG In NS Inj 240 500 / 500 500 / 500 ML @ 2.5 MG/HR 25 mls/hr IV. CONT TITRATE PRN Rx#:[id number] Cardene Inj 50 MG In NS Inj 480 1000 / 1000 ML @ 2.5 MG/HR 25 mls/hr IV. CONT TITRATE PRN Rx#:[id number] Ofirmev Inj 650 mg In 65 ml @ 65 / 65 65 / 65 400 mls/hr IV.SIG Q6H PRN Rx#: [id number] MVI-12 Inj 10 ML Thiamine Inj 1022.4 / 1022.4 100 MG Folvite Inj 1 MG In NS Inj 500 ML @ 125 mls/hr IV.SIG Q24H KARELY Rx#:[id number] fentaNYL 10 mcg/mL Premix Drip 50 / 50 2,500 mcg In 250 ml @ 50 MCG/HR 5 mls/hr IV.SIG TITRATE PRN Rx #:[id number] Oral 0 / 0 Output: Urine 2350 / 2350 Urine Amount (Catheter) 3450 / 3450 Indwelling Urethral Catheter 3450 / 3450 Result Diagrams: 04/24/18 04:55 04/24/18 04:55 Objective Remarks: GENERAL: 72-year-old AA female currently on NC SKIN: Warm and dry. HEAD: Atraumatic. Normocephalic. EYES: Pupils equal and round. No scleral icterus. No injection or drainage. ENT: No nasal bleeding or discharge. Mucous membranes pink and moist. NECK: Trachea midline. No JVD. CARDIOVASCULAR: Regular rate and rhythm. S1, S2. No S4. RESPIRATORY: No accessory muscle use. Clear to auscultation. Breath sounds equal bilaterally. GASTROINTESTINAL: Abdomen soft, non-tender, obese MUSCULOSKELETAL: Extremities with trace bilateral upper and lower extremity nonpitting edema. No obvious deformities. NEUROLOGICAL: Alert awake, following commands but very weak. Moves all 4 extremities spontaneously. Assessment and Plan - Assessment and Plan Plan: Neuro/Psych: Acute delirium Chronic pain syndrome Peripheral neuropathy Currently a propofol/fentanyl and dexmedetomidine drips drips for sedation/ analgesia while intubated Goal of RASS -2. Daily sedation vacation. CT brain revealed no acute intracranial findings. CT C-spine negative MRI brain/MRA head and neck revealed diminutive right vertebral brain otherwise negative EEG -severe encephalopathy likely medication effect Holding gabapentin 100 mg 3 times daily and baclofen 10 mg twice daily with altered mental status. Urine toxicology screen negative. Alcohol, salicylates and acetaminophen negative Lumbar puncture if indicated. Noted that patient 2 of 5 available siblings refused 04/22 CV: Sinus bradycardia Uncontrolled hypertension History of essential hypertension Hyperlipidemia Continue atorvastatin 80 mg daily for dyslipidemia Continue ezetimibe 10 mg daily for dyslipidemia. Patient is on metoprolol tartrate 25 mg daily. Increase to 50 twice daily Add Norvasc 5 mg daily Currently on Cardene infusion 10 mg/h wean to DC As needed hydralazine, Nitropaste and nicardipine drip for hypertension if needed Initial troponin less than 0.02 Resp: Acute respiratory failure secondary to altered mental status-resolved Extubated yesterday tolerating Albuterol/ipratropium aerosols every 8 hours with albuterol aerosols every 2 hours as needed for dyspnea Spontaneous breathing trials when clinically indicated GI: Hypoalbuminemia Tolerating p.o., advance diet as tolerated Lansoprazole for GI prophylaxis Docusate sodium/senna 1 tablet twice daily for bowel regimen : Trivedi catheter for accurate I's and O's in a critically ill patient-DC Endo: Diabetes mellitus Acute hyperglycemia Sliding scale insulin for Accu-Cheks to maintain euglycemia/insulin aspart every 6 hours medium protocol TSH was 1.39 Holding metformin 1000 mg twice daily and glimepiride 1 mg daily for diabetes. Resume when clinically indicated Renal: Acute kidney injury Baseline creatinine around 1. Negative renal ultrasound and urine eosinophils Heme: Normocytic anemia Monitor CBC daily. Follow trends No indication for transfusion of blood products at this time ID: Blood cultures 2 ordered. UA negative. Monitor for signs and symptomatology infection MSK: Osteoarthritis Elevate BMI Weight loss encouraged PT evaluate and treat, OOB FEN: Hypernatremia Hypocalcemia Replace electrolytes as clinically indicated Access -Utilize peripheral IV. Central line if indicated Prophylaxis -GI -lansoprazole -DVT SCDs/enoxaparin Level 2 Consult hospitalist to assume care in a.m.
[2018-04-24] MEDS: Enoxaparin Inj 40 MG/0.4 ML Syringe SQ SCH (14:20)
[2018-04-24] MEDS ORDERED: amLODIPine 5 MG Tablet PO ONE (15:00)
[2018-04-24] MEDS: Chlorhexidine 0.12% Oral Kit 15 ML UDC OROPHARYNG SCH ×2 (15:21→21:02)
[2018-04-24] MEDS: Metoprolol Tartrate 50 MG Tablet PO SCH ×2 (15:21→21:00)
[2018-04-25] MEDS: Insulin NovoLOG Aspart Correctional Sugar Inj SQ SCH ×4 (01:59→19:15)
[2018-04-25] MEDS: Oral Hygiene Kit OROPHARYNG SCH ×4 (02:00→16:57)
[2018-04-25] MEDS: Chlorhexidine Gluconate 2% 1 Pack (2 Cloths) TOPICAL SCH (06:01)
[2018-04-25] MEDS: niCARdipine Inj 50 MG in Sodium Chlor 0.9% Inj 480 ML IV.CONT PRN (06:04)
[2018-04-25] MEDS: Ezetimibe 10 MG Tablet PO SCH (08:47)
[2018-04-25] MEDS: Senna/Docusate Sodium 8.6/50 MG Tablet PO SCH ×2 (08:47→20:06)
[2018-04-25] MEDS: Chlorhexidine 0.12% Oral Kit 15 ML UDC OROPHARYNG SCH ×2 (08:47→20:07)
[2018-04-25] MEDS: Metoprolol Tartrate 50 MG Tablet PO SCH ×2 (08:47→20:05)
[2018-04-25] MEDS: Gabapentin 100 MG Capsule PO SCH ×2 (08:48→14:13)
[2018-04-25] MEDS: Acetaminophen 325 MG Tablet NG/OG PRN ×2 (09:44→18:02)
--- NOTE | 2018-04-25 10:51 | P.PNIM ---
Subjective Interval history: Patient's mental status is improving. Orientation improved. Complaint of lower back pain and bilateral foot pain today. Physical Exam Vital signs: Vital Signs 04/24/18 11:20 04/24/18 12:00 04/24/18 14:00 Temperature 99.5 F Pulse Rate 72 68 82 Respiratory Rate 16 21 Blood Pressure 120/58 L Pulse Oximetry 98 04/24/18 15:33 04/24/18 16:00 04/24/18 16:15 Temperature 99.7 F H Pulse Rate 98 H 83 80 Respiratory Rate 16 21 32 H Blood Pressure 145/65 H 133/63 Pulse Oximetry 98 97 04/24/18 16:30 04/24/18 16:46 04/24/18 17:00 Temperature Pulse Rate 81 74 80 Respiratory Rate 20 23 24 Blood Pressure 131/56 L 134/63 146/68 H Pulse Oximetry 96 97 96 04/24/18 17:15 04/24/18 17:30 04/24/18 17:45 Temperature Pulse Rate 79 79 77 Respiratory Rate 24 23 26 H Blood Pressure 142/64 H 137/63 132/58 L Pulse Oximetry 96 96 97 04/24/18 18:00 04/24/18 18:15 04/24/18 18:30 Temperature Pulse Rate 80 78 81 Respiratory Rate 30 H 27 H 28 H Blood Pressure 143/65 H 135/61 133/65 Pulse Oximetry 96 96 95 04/24/18 18:45 04/24/18 19:00 04/24/18 19:15 Temperature Pulse Rate 82 84 85 Respiratory Rate 25 H 28 H 27 H Blood Pressure 140/63 147/66 H 142/64 H Pulse Oximetry 95 97 96 04/24/18 19:30 04/24/18 19:45 04/24/18 20:00 Temperature 99.5 F Pulse Rate 87 87 88 Respiratory Rate 24 24 27 H Blood Pressure 150/68 H 154/69 H 162/72 H Pulse Oximetry 96 97 96 04/24/18 20:15 04/24/18 20:30 04/24/18 20:45 Temperature Pulse Rate 90 89 93 H Respiratory Rate 28 H 27 H 28 H Blood Pressure 159/58 H 160/71 H 180/73 H Pulse Oximetry 97 96 96 04/24/18 21:00 04/24/18 21:15 04/24/18 21:30 Temperature Pulse Rate 97 H 90 87 Respiratory Rate 31 H 28 H 28 H Blood Pressure 168/74 H 144/65 H 153/64 H Pulse Oximetry 95 97 96 04/24/18 21:45 04/24/18 22:00 04/24/18 22:15 Temperature Pulse Rate 85 85 82 Respiratory Rate 22 28 H 26 H Blood Pressure 143/67 H 141/67 H 145/67 H Pulse Oximetry 97 95 96 04/24/18 22:19 04/24/18 22:30 04/24/18 22:45 Temperature Pulse Rate 86 80 80 Respiratory Rate 18 29 H 28 H Blood Pressure 142/64 H 129/62 Pulse Oximetry 97 96 100 04/24/18 23:00 04/24/18 23:15 04/24/18 23:30 Temperature Pulse Rate 79 82 82 Respiratory Rate 26 H 25 H 23 Blood Pressure 135/64 142/64 H 138/63 Pulse Oximetry 100 100 100 04/24/18 23:49 04/25/18 00:00 04/25/18 00:04 Temperature 99.4 F Pulse Rate 87 84 84 Respiratory Rate 26 H 23 26 H Blood Pressure 175/74 H 129/63 Pulse Oximetry 99 100 94 L 04/25/18 00:15 04/25/18 00:30 04/25/18 00:45 Temperature Pulse Rate 86 84 85 Respiratory Rate 25 H 19 24 Blood Pressure 133/62 121/60 133/63 Pulse Oximetry 97 99 98 04/25/18 01:00 04/25/18 01:15 04/25/18 01:44 Temperature Pulse Rate 87 87 91 H Respiratory Rate 30 H 26 H 29 H Blood Pressure 134/64 134/63 142/65 H Pulse Oximetry 99 99 96 04/25/18 01:45 04/25/18 02:00 04/25/18 02:15 Temperature Pulse Rate 90 92 H 89 Respiratory Rate 32 H 24 28 H Blood Pressure 139/63 136/66 130/65 Pulse Oximetry 96 96 97 04/25/18 02:30 04/25/18 02:45 04/25/18 03:00 Temperature Pulse Rate 94 H 91 H 88 Respiratory Rate 30 H 27 H 25 H Blood Pressure 138/64 137/64 134/67 Pulse Oximetry 96 96 97 04/25/18 03:15 04/25/18 03:30 04/25/18 03:45 Temperature Pulse Rate 91 H 92 H 88 Respiratory Rate 28 H 29 H 27 H Blood Pressure 144/67 H 133/64 123/63 Pulse Oximetry 96 97 97 04/25/18 04:00 04/25/18 04:15 04/25/18 04:30 Temperature Pulse Rate 91 H 90 95 H Respiratory Rate 38 H 25 H 29 H Blood Pressure 136/72 136/63 135/67 Pulse Oximetry 95 98 98 04/25/18 04:45 04/25/18 05:00 04/25/18 05:15 Temperature Pulse Rate 96 H 93 H 105 H Respiratory Rate 26 H 25 H 29 H Blood Pressure 136/65 129/60 142/67 H Pulse Oximetry 98 97 98 04/25/18 05:30 04/25/18 05:45 04/25/18 06:00 Temperature 99.5 F Pulse Rate 106 H 99 H 103 H Respiratory Rate 31 H 32 H 27 H Blood Pressure 141/72 H 141/68 H 141/69 H Pulse Oximetry 99 98 98 04/25/18 06:15 04/25/18 06:30 04/25/18 06:45 Temperature Pulse Rate 100 H 97 H 96 H Respiratory Rate 29 H 35 H 36 H Blood Pressure 140/66 137/88 125/65 Pulse Oximetry 95 96 97 04/25/18 07:52 Temperature Pulse Rate 100 H Respiratory Rate 22 Blood Pressure Pulse Oximetry 98 Intake & Output 04/24/18 04/25/18 04/25/18 18:59 06:59 18:59 Intake Total 2700 / 2700 720 / 720 Output Total 1999 2690 / 2690 Balance 700 / 700 -1969 / Weight 118.5 kg Intake: IV 1500 / 1500 LR 1000 mL Inj 1,000 ML @ 42 1000 / 1000 mls/hr IV.CONT .[id number] KARELY Rx# :[id number] Cardene Inj 50 MG In NS Inj 480 500 / 500 ML @ 2.5 MG/HR 25 mls/hr IV. CONT TITRATE PRN Rx#:[id number] Oral 1200 / 1200 720 / 720 Output: Urine Amount (Catheter) 1999 2690 / 2690 Indwelling Urethral Catheter 1999 2690 / 2690 Other: Date of Last Bowel Movement 04/25/18 # Bowel Movements 1 Narrative: GENERAL: NAD, A&Ox3 HEAD: Normocephalic. NECK: Supple, trachea midline. No lymphadenopathy. EYES: No scleral icterus. No injection or drainage. CARDIOVASCULAR: Regular rate and rhythm without murmurs, gallops, or rubs. RESPIRATORY: Breath sounds equal bilaterally. No accessory muscle use. GASTROINTESTINAL: Abdomen soft, non-tender, nondistended. MUSCULOSKELETAL: No cyanosis, or edema. SKIN: Warm and dry. NEURO: No focal neurological deficits. - Urinary Catheter Management Indwelling Urethral Catheter Cath placed during this visit: yes, but has since been removed by the nurse Reason for continuing: Acute urinary retention Insertion date: 04/23/18 Insertion time: 11:30 Removal date: 04/21/18 Removal time: 15:03 Results - Labs CBC & Chem 7: 04/24/18 04:55 04/24/18 04:55 Laboratory Results - last 24 hr 04/24/18 04/24/18 04/25/18 12:44 18:24 00:19 POC Glucose 155 H 129 H 135 H 04/25/18 06:00 POC Glucose 165 H Microbiology 04/21/18 18:40 Blood - Peripheral Aerobic Blood Culture - Preliminary No growth in 3 days 04/21/18 18:40 Blood - Peripheral Anaerobic Blood Culture - Preliminary No growth in 3 days 04/21/18 18:50 Blood - Peripheral Aerobic Blood Culture - Preliminary No growth in 3 days 04/21/18 18:50 Blood - Peripheral Anaerobic Blood Culture - Preliminary No growth in 3 days Assessment and Plan - Plan 72-year-old female admitted secondary to delirium with respiratory failure Acute delirium Chronic pain syndrome Peripheral neuropathy Delirium resolved Caution with narcotics Caution with gabapentin Sinus bradycardia Uncontrolled hypertension History of essential hypertension Hyperlipidemia Continue atorvastatin Continue ezetimibe Continue metoprolol 50 mg twice daily Continue Norvasc 5 mg daily Continue Cardene drip, wean as tolerated As needed hydralazine Acute respiratory failure Resolved Patient extubated 04/23/2008 Doing well status post extubation Continue as needed nebulized treatments Hypoalbuminemia Continue p.o. intake Diabetes mellitus Acute hyperglycemia Diabetes mellitus type 2 Follow blood sugars Insulin sliding scale Diabetic diet Acute kidney injury Improving Continue to monitor renal function Normocytic anemia Monitor CBC daily. Follow trends Osteoarthritis Elevate BMI Debility Generalized weakness Continue physical therapy Anticipated [facility] facility at discharge Hypernatremia Hypocalcemia Monitor and replace as needed DVT prophylaxis Lovenox SCDs
[2018-04-25 11:24] LABS: Baso % (Auto) 0.4 % (0.0-2.0); Eos # (Auto) 0.1 th/mm3 (0.0-0.4); Hematocrit 27.9 % (35.0-46.0); Hemoglobin 9.3 gm/dL (11.6-15.3); Lymph # (Auto) 1.3 th/mm3 (1.0-4.8); Lymph % (Auto) 12.7 % (9.0-44.0); Mean Corpuscular HGB Conc 33.4 % (32.0-36.0); Mean Corpuscular Hemoglobin 28.2 pg (27.0-34.0); Mean Corpuscular Volume 84.7 fL (80.0-100.0); Mean Platelet Volume 8.3 fL (7.0-11.0); Mono # (Auto) 1.5 th/mm3 (0.0-0.9); Mono % (Auto) 13.9 % (0.0-8.0); Neut # (Auto) 7.6 th/mm3 (1.8-7.7); Platelet Count 219 th/mm3 (150-450); Red Blood Count 3.29 mil/mm3 (4.00-5.30); Red Cell Distribution Width 14.5 % (11.6-17.2); White Blood Count 10.5 th/mm3 (4.0-11.0)
[2018-04-25 11:55] LABS: Albumin 2.9 g/dL (3.4-5.0); Anion Gap 10 meq/L (5-15); Aspartate Aminotransferase 58 U/L (15-37); Blood Urea Nitrogen 8 mg/dL (7-18); Calcium 8.5 mg/dL (8.5-10.1); Carbon Dioxide 22.2 meq/L (21.0-32.0); Chloride 112 meq/L (98-107); Glomerular Filtration Rate 62 mL/min (>89); Glucose,Random 178 mg/dL (74-106); Potassium 3.4 meq/L (3.5-5.1); Sodium 144 meq/L (136-145)
[2018-04-25 11:59] LABS: Alanine Aminotransferase 44 U/L (10-53); Alkaline Phosphatase 128 U/L (45-117); Total Protein 6.9 g/dL (6.4-8.2)
[2018-04-25] MEDS: Enoxaparin Inj 40 MG/0.4 ML Syringe SQ SCH (14:13)
[2018-04-25] MEDS: Carboxymethylcellulose 0.5% Opth Drops 15 ML Bottle EACH EYE SCH ×2 (16:55→20:08)
[2018-04-26] MEDS: Insulin NovoLOG Aspart Correctional Sugar Inj SQ SCH ×4 (00:42→17:09)
[2018-04-26] MEDS: Oral Hygiene Kit OROPHARYNG SCH ×4 (00:43→15:19)
[2018-04-26] MEDS: Acetaminophen 325 MG Tablet NG/OG PRN ×4 (01:13→21:27)
[2018-04-26 06:10] LABS: Hematocrit 29.6 % (35.0-46.0); Hemoglobin 9.5 gm/dL (11.6-15.3); Mean Corpuscular HGB Conc 32.2 % (32.0-36.0); Mean Corpuscular Hemoglobin 27.6 pg (27.0-34.0); Mean Corpuscular Volume 85.7 fL (80.0-100.0); Mean Platelet Volume 8.4 fL (7.0-11.0); Platelet Count 237 th/mm3 (150-450); Red Blood Count 3.45 mil/mm3 (4.00-5.30); Red Cell Distribution Width 15.1 % (11.6-17.2); White Blood Count 10.3 th/mm3 (4.0-11.0)
[2018-04-26 06:13] LABS: Alanine Aminotransferase 70 U/L (10-53); Albumin 2.9 g/dL (3.4-5.0); Anion Gap 10 meq/L (5-15); Aspartate Aminotransferase 81 U/L (15-37); Blood Urea Nitrogen 11 mg/dL (7-18); Calcium 8.7 mg/dL (8.5-10.1); Chloride 111 meq/L (98-107); Glomerular Filtration Rate 64 mL/min (>89); Glucose,Random 119 mg/dL (74-106); Potassium 3.1 meq/L (3.5-5.1); Sodium 146 meq/L (136-145)
[2018-04-26 06:16] LABS: Alkaline Phosphatase 115 U/L (45-117); Total Protein 7.1 g/dL (6.4-8.2)
[2018-04-26] MEDS: Chlorhexidine Gluconate 2% 1 Pack (2 Cloths) TOPICAL SCH (06:23)
[2018-04-26 07:03] LABS: Atypical Lymphs 7 % (0-0); Eosinophils 4 % (0-4); Lymphocytes 24 % (9-44)
[2018-04-26 07:04] LABS: Acanthocytes Occ; Platelet Estimate Normal (Normal); Platelet Morphology Normal (Normal)
[2018-04-26] MEDS: Ezetimibe 10 MG Tablet PO SCH (08:26)
[2018-04-26] MEDS: Metoprolol Tartrate 50 MG Tablet PO SCH ×2 (08:26→21:27)
[2018-04-26] MEDS: Senna/Docusate Sodium 8.6/50 MG Tablet PO SCH ×2 (08:26→21:26)
[2018-04-26] MEDS: Chlorhexidine 0.12% Oral Kit 15 ML UDC OROPHARYNG SCH ×2 (08:27→21:29)
[2018-04-26] MEDS: Carboxymethylcellulose 0.5% Opth Drops 15 ML Bottle EACH EYE SCH ×2 (08:28→21:28)
[2018-04-26 10:54] LABS: Hemoglobin A1c 6.4 % (4.3-6.0)
[2018-04-26] MEDS: Enoxaparin Inj 40 MG/0.4 ML Syringe SQ SCH (12:58)
[2018-04-26] MEDS: hydrALAZINE 25 MG Tablet PO PRN (14:29)
--- NOTE | 2018-04-26 15:04 | P.PNIM ---
Subjective Interval history: 72-year-old AA female. Date of admission 04/21/2018. Past medical history significant for diabetes mellitus, hypertension, hyperlipidemia, chronic pain syndrome and also osteoarthritis. She presented to [facility] ED today with chief complaint of acute delirium. Per EMS and family last night she was herself but "slightly goofy." This morning she seemed confused and "kid like" before she became completely unresponsive. At that time they called EMS. EMS reports that she has intermittently responded to painful stimuli before she becomes completely unresponsive. Blood glucose was 199. They report normal vital signs. Patient did open her eyes for several seconds and say her name but then did not say any more information before she became completely unresponsive. At that time, patient was intubated by the ED physician. CT brain revealed no acute intracranial findings. CT C-spine unremarkable. Laboratory significant for a creatinine of 2.4 which is above her baseline which is normal, sodium 146 , normocytic anemia. TSH was 1.39. UA was negative. Toxicology screen negative. Salicylates, acetaminophen and alcohol toxicology screen is negative. She is currently bradycardic and hypertensive intubated room C 29. 04/22: Currently resting in bed in no acute distress. Remains on dexmedetomidine drip and propofol drip for sedation/analgesia. White cell count normal. Afebrile. When sedation less than patient appears to see her directly but not following commands. Moving all 4 extremities spontaneously. Subjective 04/23: Afebrile. Currently arousable and following commands on dexmedetomidine drip. Will attempt extubation today. A.m. labs pending 04/24: Lying in bed no acute distress. Not on Precedex, following commands. Very weak and lethargic, but breathing comfortably. Remains on Cardene infusion at 10 mg/h 04-25 Patient's mental status is improving. Orientation improved. Complaint of lower back pain and bilateral foot pain today. 04-26 POTASSIUM IS DECREASED WILL REPLACE AM LABS PT AND OT DW RN AND PT INCREASE ACTIVITY Physical Exam Vital signs: Vital Signs 04/25/18 15:00 04/25/18 15:15 04/25/18 15:30 Temperature Pulse Rate 80 78 84 Respiratory Rate 26 H 36 H 30 H Blood Pressure 143/70 H 151/72 H 161/75 H Pulse Oximetry 98 97 98 04/25/18 15:45 04/25/18 15:54 04/25/18 16:00 Temperature 98.3 F Pulse Rate 82 82 91 H Respiratory Rate 25 H 18 23 Blood Pressure 155/71 H 156/73 H Pulse Oximetry 98 100 04/25/18 16:15 04/25/18 16:30 04/25/18 16:45 Temperature Pulse Rate 98 H 93 H 94 H Respiratory Rate 33 H 30 H 23 Blood Pressure 163/81 H 172/75 H 159/71 H Pulse Oximetry 94 L 94 L 98 04/25/18 17:00 04/25/18 17:15 04/25/18 17:30 Temperature Pulse Rate 95 H 90 87 Respiratory Rate 29 H 27 H 30 H Blood Pressure 179/79 H 153/71 H 161/79 H Pulse Oximetry 97 98 98 04/25/18 17:45 04/25/18 18:00 04/25/18 19:00 Temperature Pulse Rate 86 85 95 H Respiratory Rate 21 22 28 H Blood Pressure 162/77 H 154/71 H Pulse Oximetry 98 99 98 04/25/18 20:00 04/25/18 20:04 04/25/18 21:00 Temperature 99.7 F H Pulse Rate 80 81 69 Respiratory Rate 24 26 H 26 H Blood Pressure 157/77 H Pulse Oximetry 98 97 98 04/25/18 22:00 04/25/18 23:00 04/25/18 23:58 Temperature Pulse Rate 86 81 Respiratory Rate 31 H 31 H Blood Pressure Pulse Oximetry 100 97 99 04/26/18 00:00 04/26/18 01:00 04/26/18 01:43 Temperature Pulse Rate 80 79 76 Respiratory Rate 28 H 25 H 20 Blood Pressure Pulse Oximetry 95 96 04/26/18 02:00 04/26/18 03:00 04/26/18 04:00 Temperature Pulse Rate 76 79 81 Respiratory Rate 31 H 22 25 H Blood Pressure 176/77 H Pulse Oximetry 100 100 100 04/26/18 04:37 04/26/18 04:40 04/26/18 05:00 Temperature Pulse Rate 92 H 81 78 Respiratory Rate 18 26 H 22 Blood Pressure 177/122 H 176/77 H Pulse Oximetry 90 L 04/26/18 06:00 04/26/18 07:00 04/26/18 07:53 Temperature Pulse Rate 81 84 91 H Respiratory Rate 22 24 18 Blood Pressure Pulse Oximetry 100 100 100 04/26/18 08:00 04/26/18 08:36 04/26/18 09:00 Temperature 98.6 F Pulse Rate 94 H 94 H 87 Respiratory Rate 30 H 25 H 30 H Blood Pressure 193/86 H 193/86 H Pulse Oximetry 93 L 97 100 04/26/18 10:00 04/26/18 11:00 04/26/18 11:17 Temperature Pulse Rate 68 71 68 Respiratory Rate 28 H 25 H 26 H Blood Pressure 168/79 H Pulse Oximetry 96 89 L 82 L 04/26/18 12:00 04/26/18 12:26 04/26/18 12:40 Temperature 99.0 F Pulse Rate 70 80 Respiratory Rate 24 20 27 H Blood Pressure 168/79 H 197/89 H Pulse Oximetry 100 04/26/18 12:45 04/26/18 12:50 04/26/18 13:00 Temperature Pulse Rate 78 72 74 Respiratory Rate 27 H 25 H 30 H Blood Pressure 196/88 H 199/86 H Pulse Oximetry 04/26/18 13:21 Temperature Pulse Rate 72 Respiratory Rate 25 H Blood Pressure 161/72 H Pulse Oximetry Intake & Output 04/25/18 04/26/18 04/26/18 18:59 06:59 18:59 Intake Total 1000 / 1000 1600 / 1600 1000 / 1000 Output Total 1750 / 1750 750 / 750 Balance -750 / -750 850 / 850 1000 / 1000 Weight 117 kg Intake: IV 1000 / 1000 1000 / 1000 1000 / 1000 LR 1000 mL Inj 1,000 ML @ 42 1000 / 1000 1000 / 1000 1000 / 1000 mls/hr IV.CONT .[id number] [facility] Rx# :[id number] Oral 600 / 600 Output: Urine 300 / 300 750 / 750 Stool 0 / 0 Urine Amount (Catheter) 1450 / 1450 Indwelling Urethral Catheter 1450 / 1450 Other: # Voids 3 Date of Last Bowel Movement 04/25/18 04/25/18 04/25/18 # Bowel Movements 1 Narrative: GENERAL: NAD, A&Ox3 HEAD: Normocephalic. NECK: Supple, trachea midline. No lymphadenopathy. EYES: No scleral icterus. No injection or drainage. CARDIOVASCULAR: Regular rate and rhythm without murmurs, gallops, or rubs. RESPIRATORY: Breath sounds equal bilaterally. No accessory muscle use. GASTROINTESTINAL: Abdomen soft, non-tender, nondistended. MUSCULOSKELETAL: No cyanosis, or edema. SKIN: Warm and dry. NEURO: No focal neurological deficits. - Urinary Catheter Management Indwelling Urethral Catheter Cath placed during this visit: yes, but has since been removed by the nurse Reason for continuing: Decision to DC catheter Insertion date: 04/23/18 Insertion time: 11:30 Removal date: 04/25/18 Removal time: 14:00 Results - Labs CBC & Chem 7: 04/26/18 05:29 04/26/18 05:29 Laboratory Results - last 24 hr 04/25/18 04/25/18 04/26/18 18:08 23:58 05:29 WBC RBC Hgb Hct MCV MCH MCHC RDW Plt Count MPV Prelim Diff (Auto) WBC Differential Seg Neuts % (Manual) Band Neuts % (Manual) Lymphocytes % (Manual) Atypical Lymphs % (Man) Eosinophils % (Manual) Abs Neuts (Manual) Differential Comment Platelet Estimate Platelet Morphology Acanthocytes (Spur) Sodium Potassium Chloride Carbon Dioxide Anion Gap BUN Creatinine Estimated GFR POC Glucose 151 H 136 H Random Glucose Hemoglobin A1c Calcium Total Bilirubin AST ALT Alkaline Phosphatase Ammonia 29 Total Protein Albumin Free T4 04/26/18 04/26/18 04/26/18 05:29 05:29 05:29 WBC 10.3 RBC 3.45 L Hgb 9.5 L Hct 29.6 L MCV 85.7 MCH 27.6 MCHC 32.2 RDW 15.1 Plt Count 237 MPV 8.4 Prelim Diff (Auto) Manual diff required WBC Differential Manual diff final Seg Neuts % (Manual) 62 Band Neuts % (Manual) 3 Lymphocytes % (Manual) 24 Atypical Lymphs % (Man) 7 H Eosinophils % (Manual) 4 Abs Neuts (Manual) 6.7 Differential Comment . Platelet Estimate Normal Platelet Morphology Normal Acanthocytes (Spur) Occ H Sodium 146 H Potassium 3.1 L Chloride 111 H Carbon Dioxide 25.0 Anion Gap 10 BUN 11 Creatinine 1.02 H Estimated GFR 64 L POC Glucose Random Glucose 119 H Hemoglobin A1c 6.4 H Calcium 8.7 Total Bilirubin 0.8 AST 81 H ALT 70 H Alkaline Phosphatase 115 Ammonia Total Protein 7.1 Albumin 2.9 L Free T4 04/26/18 04/26/18 05:29 12:39 WBC RBC Hgb Hct MCV MCH MCHC RDW Plt Count MPV Prelim Diff (Auto) WBC Differential Seg Neuts % (Manual) Band Neuts % (Manual) Lymphocytes % (Manual) Atypical Lymphs % (Man) Eosinophils % (Manual) Abs Neuts (Manual) Differential Comment Platelet Estimate Platelet Morphology Acanthocytes (Spur) Sodium Potassium Chloride Carbon Dioxide Anion Gap BUN Creatinine Estimated GFR POC Glucose 156 H Random Glucose Hemoglobin A1c Calcium Total Bilirubin AST ALT Alkaline Phosphatase Ammonia Total Protein Albumin Free T4 1.20 Microbiology 04/21/18 18:40 Blood - Peripheral Aerobic Blood Culture - Final No growth in 5 days 04/21/18 18:40 Blood - Peripheral Anaerobic Blood Culture - Final No growth in 5 days 04/21/18 18:50 Blood - Peripheral Aerobic Blood Culture - Final No growth in 5 days 04/21/18 18:50 Blood - Peripheral Anaerobic Blood Culture - Final No growth in 5 days - Imaging ITS Impressions Abdomen/Bladder Ultrasound 04/21/18 00:00 CONCLUSION: 1. Smaller left kidney otherwise unremarkable appearance bilaterally. 2. Bladder is decompressed by a Trivedi catheter. Head MRI 04/21/18 00:00 CONCLUSION: 1. Negative MR Brain non contrast. Head MRA 04/21/18 00:00 CONCLUSION: 1. Negative MRA [place] ([place]) non contrast without evidence of aneurysm. Prominent right posterior communicating artery. Neck MRA 04/21/18 00:00 CONCLUSION: 1. Markedly diminutive, not well evaluated right vertebral artery. 2. The bilateral carotid arteries and left vertebral artery are widely patent. _ Percent stenosis is calculated using the diameter of the stenotic region over the diameter of the normal distal internal carotid artery _ Cervical Spine CT 04/21/18 08:58 CONCLUSION: Degenerative changes. No evidence of acute bony process in the cervical spine. Head CT 04/21/18 08:58 CONCLUSION: 1. Negative CT Head non contrast. . Chest X-Ray 04/22/18 06:00 CONCLUSION: 1. Stable ETT and NGT. 2. Minimal left lung base airspace disease, likely atelectasis. Foot X-Ray 04/23/18 00:00 CONCLUSION: No acute abnormality. Venous Doppler Study 04/23/18 00:00 CONCLUSION: No evidence of lower extremity DVT on the right or left. - Procedures VDRF INTUBATION EXTUBATION Assessment and Plan - Plan 72-year-old female admitted secondary to delirium with respiratory failure Acute delirium Chronic pain syndrome Peripheral neuropathy Delirium resolved Caution with narcotics Caution with gabapentin Sinus bradycardia Uncontrolled hypertension History of essential hypertension Hyperlipidemia Continue atorvastatin Continue ezetimibe Continue metoprolol 50 mg twice daily Continue Norvasc 5 mg daily Continue Cardene drip, wean as tolerated As needed hydralazine Acute respiratory failure Resolved Patient extubated 04/23/2008 Doing well status post extubation Continue as needed nebulized treatments Hypoalbuminemia Continue p.o. intake Diabetes mellitus Acute hyperglycemia Diabetes mellitus type 2 Follow blood sugars Insulin sliding scale Diabetic diet Acute kidney injury Improving Continue to monitor renal function Normocytic anemia Monitor CBC daily. Follow trends Osteoarthritis Elevate BMI Debility Generalized weakness Continue physical therapy Anticipated snf facility at discharge Hypernatremia Hypocalcemia HYPOKALEMIA will replace and check AM LABS Monitor and replace as needed DVT prophylaxis Lovenox SCDs Code Status: FULL CODE Discussed Condition With: RN AND PT AND CM Discharge Planning: PENDING IMPROVEMENT
[2018-04-27] MEDS: Insulin NovoLOG Aspart Correctional Sugar Inj SQ SCH ×5 (01:36→23:54)
[2018-04-27] MEDS: Oral Hygiene Kit OROPHARYNG SCH ×5 (01:37→23:54)
[2018-04-27 05:11] LABS: Baso # (Auto) 0.1 th/mm3 (0.0-0.2); Eos # (Auto) 0.3 th/mm3 (0.0-0.4); Hematocrit 28.8 % (35.0-46.0); Hemoglobin 9.5 gm/dL (11.6-15.3); Lymph # (Auto) 2.2 th/mm3 (1.0-4.8); Lymph % (Auto) 25.6 % (9.0-44.0); Mean Corpuscular HGB Conc 32.9 % (32.0-36.0); Mean Corpuscular Hemoglobin 27.9 pg (27.0-34.0); Mean Corpuscular Volume 84.7 fL (80.0-100.0); Mean Platelet Volume 8.7 fL (7.0-11.0); Mono # (Auto) 1.2 th/mm3 (0.0-0.9); Mono % (Auto) 13.9 % (0.0-8.0); Neut # (Auto) 4.9 th/mm3 (1.8-7.7); Neut % (Auto) 56.5 % (16.0-70.0); Platelet Count 242 th/mm3 (150-450); Red Blood Count 3.41 mil/mm3 (4.00-5.30); Red Cell Distribution Width 14.7 % (11.6-17.2); White Blood Count 8.7 th/mm3 (4.0-11.0)
[2018-04-27] MEDS: Acetaminophen 325 MG Tablet NG/OG PRN ×2 (05:20→15:24)
[2018-04-27 05:33] LABS: Albumin 2.9 g/dL (3.4-5.0); Anion Gap 12 meq/L (5-15); Aspartate Aminotransferase 111 U/L (15-37); Blood Urea Nitrogen 13 mg/dL (7-18); Calcium 8.7 mg/dL (8.5-10.1); Chloride 112 meq/L (98-107); Glomerular Filtration Rate 68 mL/min (>89); Glucose,Random 121 mg/dL (74-106); Magnesium 1.7 mg/dL (1.5-2.5); Potassium 3.3 meq/L (3.5-5.1); Sodium 147 meq/L (136-145)
[2018-04-27 05:34] LABS: Alanine Aminotransferase 107 U/L (10-53); Phosphorus 2.9 mg/dL (2.5-4.9)
[2018-04-27 05:36] LABS: Prothrombin Time 10.3 sec (9.8-11.6)
[2018-04-27 05:43] LABS: Alkaline Phosphatase 129 U/L (45-117); Free T4 (Free Thyroxine) 1.28 ng/dL (0.76-1.46); Total Protein 7.3 g/dL (6.4-8.2)
[2018-04-27] MEDS ORDERED: Magnesium Sulfate Inj 4 GM in Dextrose 5% in Water Inj 100 ML IV.SIG ONE ×2 (09:34)
[2018-04-27] MEDS: Metoprolol Tartrate 50 MG Tablet PO SCH ×2 (10:02→20:08)
[2018-04-27] MEDS: Ezetimibe 10 MG Tablet PO SCH (10:03)
[2018-04-27] MEDS: Senna/Docusate Sodium 8.6/50 MG Tablet PO SCH ×2 (10:03→20:08)
[2018-04-27] MEDS: Carboxymethylcellulose 0.5% Opth Drops 15 ML Bottle EACH EYE SCH ×2 (10:03→20:08)
[2018-04-27] MEDS: Mag Sulf 1 gm/100 ml Premix 100 ML IV.SIG SCH ×4 (10:04→16:46)
[2018-04-27] MEDS: Chlorhexidine 0.12% Oral Kit 15 ML UDC OROPHARYNG SCH ×2 (10:19→19:22)
[2018-04-27 12:22] LABS: Hemoglobin A1c 6.1 % (4.3-6.0)
[2018-04-27] MEDS: Enoxaparin Inj 40 MG/0.4 ML Syringe SQ SCH (12:44)
--- NOTE | 2018-04-27 13:45 | P.PNIM ---
Subjective Interval history: 72-year-old AA female. Date of admission 04/21/2018. Past medical history significant for diabetes mellitus, hypertension, hyperlipidemia, chronic pain syndrome and also osteoarthritis. She presented to [facility] ED today with chief complaint of acute delirium. Per EMS and family last night she was herself but "slightly goofy." This morning she seemed confused and "kid like" before she became completely unresponsive. At that time they called EMS. EMS reports that she has intermittently responded to painful stimuli before she becomes completely unresponsive. Blood glucose was 199. They report normal vital signs. Patient did open her eyes for several seconds and say her name but then did not say any more information before she became completely unresponsive. At that time, patient was intubated by the ED physician. CT brain revealed no acute intracranial findings. CT C-spine unremarkable. Laboratory significant for a creatinine of 2.4 which is above her baseline which is normal, sodium 146 , normocytic anemia. TSH was 1.39. UA was negative. Toxicology screen negative. Salicylates, acetaminophen and alcohol toxicology screen is negative. She is currently bradycardic and hypertensive intubated room C 29. 04/22: Currently resting in bed in no acute distress. Remains on dexmedetomidine drip and propofol drip for sedation/analgesia. White cell count normal. Afebrile. When sedation less than patient appears to see her directly but not following commands. Moving all 4 extremities spontaneously. Subjective 04/23: Afebrile. Currently arousable and following commands on dexmedetomidine drip. Will attempt extubation today. A.m. labs pending 04/24: Lying in bed no acute distress. Not on Precedex, following commands. Very weak and lethargic, but breathing comfortably. Remains on Cardene infusion at 10 mg/h 04-25 Patient's mental status is improving. Orientation improved. Complaint of lower back pain and bilateral foot pain today. 18 POTASSIUM IS DECREASED WILL REPLACE AM LABS PT AND OT DW RN AND PT INCREASE ACTIVITY 04-27 REPLACE POTASSIUM AND MAGNESSIUM DC TO SNF IF AVAILABLE AM LABS IF STILL HERE HAS A SORE THROAT PROBABLY FROM THE INTUBATION AND VENT FROM ET TUBE Physical Exam Vital signs: Vital Signs 04/26/18 15:36 04/26/18 15:37 04/26/18 15:59 Temperature 98.7 F Pulse Rate 87 76 Respiratory Rate 18 22 Blood Pressure 172/81 H Pulse Oximetry 99 98 04/26/18 20:00 04/26/18 23:43 04/27/18 00:00 Temperature 98.8 F 98.6 F Pulse Rate 81 71 80 Respiratory Rate 18 Blood Pressure 164/91 H 154/62 H Pulse Oximetry 94 L 96 04/27/18 03:22 04/27/18 04:00 04/27/18 08:00 Temperature 97.6 F 98.1 F Pulse Rate 90 80 Respiratory Rate 18 19 Blood Pressure 151/80 H 183/84 H Pulse Oximetry 96 97 04/27/18 09:32 04/27/18 12:00 Temperature 97.9 F Pulse Rate 77 63 Respiratory Rate 16 19 Blood Pressure 185/85 H Pulse Oximetry 95 97 Intake & Output 04/26/18 04/27/18 04/27/18 18:59 06:59 18:59 Intake Total 1720 / 1720 820 / 820 Output Total 0 / 0 1450 / 1450 Balance 1720 / 1720 0 / 0 -630 / -630 Intake: IV 1000 / 1000 100 / 100 LR 1000 mL Inj 1,000 ML @ 42 1000 / 1000 mls/hr IV.CONT .[id number] [facility] Rx# :[id number] Magnesium Sulfate 1 gm/D5W 100 100 / 100 ml Premix 100 ML @ 100 mls/hr IV.SIG Q1H [facility] Rx#:[id number] Oral 720 / 720 720 / 720 Output: Urine 0 / 0 0 / 0 Stool 0 / 0 Urine Amount (Catheter) 1450 / 1450 Indwelling Urethral Catheter 1450 / 1450 Other: # Voids 1 1 Date of Last Bowel Movement 04/25/18 04/27/18 # Bowel Movements 1 1 Narrative: GENERAL: NAD, A&Ox3 HEAD: Normocephalic. NECK: Supple, trachea midline. No lymphadenopathy. EYES: No scleral icterus. No injection or drainage. CARDIOVASCULAR: Regular rate and rhythm without murmurs, gallops, or rubs. RESPIRATORY: Breath sounds equal bilaterally. No accessory muscle use. GASTROINTESTINAL: Abdomen soft, non-tender, nondistended. MUSCULOSKELETAL: No cyanosis, or edema. SKIN: Warm and dry. NEURO: No focal neurological deficits. - Urinary Catheter Management Indwelling Urethral Catheter Cath placed during this visit: yes, but has since been removed by the nurse Reason for continuing: Decision to DC catheter Insertion date: 04/23/18 Insertion time: 11:30 Removal date: 04/26/18 Removal time: 15:15 Results - Labs CBC & Chem 7: 04/27/18 03:30 04/27/18 03:30 Laboratory Results - last 24 hr 04/26/18 04/26/18 04/27/18 16:45 23:56 03:30 WBC 8.7 RBC 3.41 L Hgb 9.5 L Hct 28.8 L MCV 84.7 MCH 27.9 MCHC 32.9 RDW 14.7 Plt Count 242 MPV 8.7 Neut % (Auto) 56.5 Lymph % (Auto) 25.6 [place] % (Auto) 13.9 H Eos % (Auto) 3.0 Baso % (Auto) 1.0 Neut # (Auto) 4.9 Lymph # (Auto) 2.2 [place] # (Auto) 1.2 H Eos # (Auto) 0.3 Baso # (Auto) 0.1 WBC Differential . Differential Comment Auto diff final PT INR Sodium Potassium Chloride Carbon Dioxide Anion Gap BUN Creatinine Estimated GFR POC Glucose 116 H 133 H Random Glucose Hemoglobin A1c Calcium Phosphorus Magnesium Total Bilirubin AST ALT Alkaline Phosphatase Total Protein Albumin TSH Free T4 04/27/18 04/27/18 04/27/18 03:30 03:30 03:30 WBC RBC Hgb Hct MCV MCH MCHC RDW Plt Count MPV Neut % (Auto) Lymph % (Auto) [place] % (Auto) Eos % (Auto) Baso % (Auto) Neut # (Auto) Lymph # (Auto) [place] # (Auto) Eos # (Auto) Baso # (Auto) WBC Differential Differential Comment PT 10.3 INR 1.0 Sodium 147 H Potassium 3.3 L Chloride 112 H Carbon Dioxide 23.0 Anion Gap 12 BUN 13 Creatinine 0.98 Estimated GFR 68 L POC Glucose Random Glucose 121 H Hemoglobin A1c 6.1 H Calcium 8.7 Phosphorus 2.9 Magnesium 1.7 Total Bilirubin 0.7 AST 111 H ALT 107 H Alkaline Phosphatase 129 H Total Protein 7.3 Albumin 2.9 L TSH 1.970 Free T4 1.28 04/27/18 04/27/18 04/27/18 05:58 09:00 11:24 WBC RBC Hgb Hct MCV MCH MCHC RDW Plt Count MPV Neut % (Auto) Lymph % (Auto) [place] % (Auto) Eos % (Auto) Baso % (Auto) Neut # (Auto) Lymph # (Auto) [place] # (Auto) Eos # (Auto) Baso # (Auto) WBC Differential Differential Comment PT INR Sodium Potassium Chloride Carbon Dioxide Anion Gap BUN Creatinine Estimated GFR POC Glucose 148 H 134 H 169 H Random Glucose Hemoglobin A1c Calcium Phosphorus Magnesium Total Bilirubin AST ALT Alkaline Phosphatase Total Protein Albumin TSH Free T4 Microbiology 04/21/18 18:40 Blood - Peripheral Aerobic Blood Culture - Final No growth in 5 days 04/21/18 18:40 Blood - Peripheral Anaerobic Blood Culture - Final No growth in 5 days 04/21/18 18:50 Blood - Peripheral Aerobic Blood Culture - Final No growth in 5 days 04/21/18 18:50 Blood - Peripheral Anaerobic Blood Culture - Final No growth in 5 days - Procedures VDRF INTUBATION EXTUBATION Assessment and Plan - Plan 72-year-old female admitted secondary to delirium with respiratory failure Acute delirium Chronic pain syndrome Peripheral neuropathy Delirium resolved Caution with narcotics Caution with gabapentin Sinus bradycardia Uncontrolled hypertension History of essential hypertension Hyperlipidemia Continue atorvastatin Continue ezetimibe Continue metoprolol 50 mg twice daily Continue Norvasc 5 mg daily Continue Cardene drip, wean as tolerated As needed hydralazine Acute respiratory failure Resolved Patient extubated 04/23/2008 Doing well status post extubation Continue as needed nebulized treatments Hypoalbuminemia Continue p.o. intake Diabetes mellitus Acute hyperglycemia Diabetes mellitus type 2 Follow blood sugars Insulin sliding scale Diabetic diet Acute kidney injury Improving Continue to monitor renal function Normocytic anemia Monitor CBC daily. Follow trends Osteoarthritis Elevate BMI Debility Generalized weakness Continue physical therapy Anticipated senior care facility at discharge Hypernatremia Hypocalcemia HYPOKALEMIA will replace and check AM LABS Monitor and replace as needed DVT prophylaxis Lovenox SCDs DC TO SNF IF BED BECOMES AVAILABLE Code Status: FULL CODE Discussed Condition With: RN AND PT AND CM AND FAMILY Discharge Planning: PENDING IMPROVEMENT
--- NOTE | 2018-04-27 14:00 | P.DS ---
Date of admission: 04/21/18 11:50 Primary care physician: UNKNOWN Attending physician on discharge: Jaret Copeland Anticipated date of discharge: 04/27/18 Brief History from admission: 72-year-old AA female. Date of admission 04/21/2018. Past medical history significant for diabetes mellitus, hypertension, hyperlipidemia, chronic pain syndrome and also osteoarthritis. She presented to [facility] ED today with chief complaint of acute delirium. Per EMS and family last night she was herself but "slightly goofy." This morning she seemed confused and "kid like" before she became completely unresponsive. At that time they called EMS. EMS reports that she has intermittently responded to painful stimuli before she becomes completely unresponsive. Blood glucose was 199. They report normal vital signs. Patient did open her eyes for several seconds and say her name but then did not say any more information before she became completely unresponsive. At that time, patient was intubated by the ED physician. CT brain revealed no acute intracranial findings. CT C-spine unremarkable. Laboratory significant for a creatinine of 2.4 which is above her baseline which is normal, sodium 146 , normocytic anemia. TSH was 1.39. UA was negative. Toxicology screen negative. Salicylates, acetaminophen and alcohol toxicology screen is negative. She is currently bradycardic and hypertensive intubated room C 29. Patient update on day of discharge: 72-year-old AA female. Date of admission 04/21/2018. Past medical history significant for diabetes mellitus, hypertension, hyperlipidemia, chronic pain syndrome and also osteoarthritis. She presented to [facility] ED today with chief complaint of acute delirium. Per EMS and family last night she was herself but "slightly goofy." This morning she seemed confused and "kid like" before she became completely unresponsive. At that time they called EMS. EMS reports that she has intermittently responded to painful stimuli before she becomes completely unresponsive. Blood glucose was 199. They report normal vital signs. Patient did open her eyes for several seconds and say her name but then did not say any more information before she became completely unresponsive. At that time, patient was intubated by the ED physician. CT brain revealed no acute intracranial findings. CT C-spine unremarkable. Laboratory significant for a creatinine of 2.4 which is above her baseline which is normal, sodium 146 , normocytic anemia. TSH was 1.39. UA was negative. Toxicology screen negative. Salicylates, acetaminophen and alcohol toxicology screen is negative. She is currently bradycardic and hypertensive intubated room C 29. 04/22: Currently resting in bed in no acute distress. Remains on dexmedetomidine drip and propofol drip for sedation/analgesia. White cell count normal. Afebrile. When sedation less than patient appears to see her directly but not following commands. Moving all 4 extremities spontaneously. Subjective 04/23: Afebrile. Currently arousable and following commands on dexmedetomidine drip. Will attempt extubation today. A.m. labs pending 04/24: Lying in bed no acute distress. Not on Precedex, following commands. Very weak and lethargic, but breathing comfortably. Remains on Cardene infusion at 10 mg/h 04-25 Patient's mental status is improving. Orientation improved. Complaint of lower back pain and bilateral foot pain today. 04-26 POTASSIUM IS DECREASED WILL REPLACE AM LABS PT AND OT DW RN AND PT INCREASE ACTIVITY 04-27 REPLACE POTASSIUM AND MAGNESSIUM DC TO SNF IF AVAILABLE AM LABS IF STILL HERE HAS A SORE THROAT PROBABLY FROM THE INTUBATION AND VENT FROM ET TUBE DS: Diagnosis - Discharge Diagnosis (1) RODRIGUEZ (acute kidney injury) Status: Acute (2) Acute dehydration Status: Acute (3) Altered mental status Status: Acute DS: Medications - Discharge Medications Prescriptions: albuterol sulfate 2.5 mg NEB Q2HR NEB PRN #180 amp PRN Reason: Shortness Of Breath/Wheezing atorvastatin 80 mg PO DAILY #30 tab benzocaine-menthol [Chloraseptic Sore Throat] 1 toni BUCCAL Q2H PRN #100 each PRN Reason: Sore Throat ezetimibe 10 mg PO DAILY #30 tab gabapentin 100 mg PO TID #90 cap hydralazine 25 mg PO TID PRN #90 tab PRN Reason: Sbp>160, Dbp>90 ipratropium-albuterol 1 amp NEB Q8HR NEB #180 amp lansoprazole [Prevacid SoluTab] 30 mg PO DAILY #30 tab metoprolol tartrate 50 mg PO BID #60 tab sennosides [Senna Lax] 17.2 mg PO Q12H PRN #120 tab PRN Reason: Moderate Constipation sennosides-docusate sodium [Senna Plus] 2 tab PO BID #120 tab DS: Summary Hospital Course: 72-year-old AA female. Date of admission 04/21/2018. Past medical history significant for diabetes mellitus, hypertension, hyperlipidemia, chronic pain syndrome and also osteoarthritis. She presented to [facility] ED today with chief complaint of acute delirium. Per EMS and family last night she was herself but "slightly goofy." This morning she seemed confused and "kid like" before she became completely unresponsive. At that time they called EMS. EMS reports that she has intermittently responded to painful stimuli before she becomes completely unresponsive. Blood glucose was 199. They report normal vital signs. Patient did open her eyes for several seconds and say her name but then did not say any more information before she became completely unresponsive. At that time, patient was intubated by the ED physician. CT brain revealed no acute intracranial findings. CT C-spine unremarkable. Laboratory significant for a creatinine of 2.4 which is above her baseline which is normal, sodium 146 , normocytic anemia. TSH was 1.39. UA was negative. Toxicology screen negative. Salicylates, acetaminophen and alcohol toxicology screen is negative. She is currently bradycardic and hypertensive intubated room C 29. 04/22: Currently resting in bed in no acute distress. Remains on dexmedetomidine drip and propofol drip for sedation/analgesia. White cell count normal. Afebrile. When sedation less than patient appears to see her directly but not following commands. Moving all 4 extremities spontaneously. Subjective 04/23: Afebrile. Currently arousable and following commands on dexmedetomidine drip. Will attempt extubation today. A.m. labs pending 04/24: Lying in bed no acute distress. Not on Precedex, following commands. Very weak and lethargic, but breathing comfortably. Remains on Cardene infusion at 10 mg/h 04-25 Patient's mental status is improving. Orientation improved. Complaint of lower back pain and bilateral foot pain today. -18 POTASSIUM IS DECREASED WILL REPLACE AM LABS PT AND OT DW RN AND PT INCREASE ACTIVITY 04-27 REPLACE POTASSIUM AND MAGNESSIUM DC TO SNF IF AVAILABLE AM LABS IF STILL HERE HAS A SORE THROAT PROBABLY FROM THE INTUBATION AND VENT FROM ET TUBE 72-year-old female admitted secondary to delirium with respiratory failure Acute delirium Chronic pain syndrome Peripheral neuropathy Delirium resolved Caution with narcotics Caution with gabapentin Sinus bradycardia Uncontrolled hypertension History of essential hypertension Hyperlipidemia Continue atorvastatin Continue ezetimibe Continue metoprolol 50 mg twice daily Continue Norvasc 5 mg daily Continue Cardene drip, wean as tolerated As needed hydralazine Acute respiratory failure Resolved Patient extubated 04/23/2008 Doing well status post extubation Continue as needed nebulized treatments Hypoalbuminemia Continue p.o. intake Diabetes mellitus Acute hyperglycemia Diabetes mellitus type 2 Follow blood sugars Insulin sliding scale Diabetic diet Acute kidney injury Improving Continue to monitor renal function Normocytic anemia Monitor CBC daily. Follow trends Osteoarthritis Elevate BMI Debility Generalized weakness Continue physical therapy Anticipated [facility] facility at discharge Hypernatremia Hypocalcemia HYPOKALEMIA will replace and check AM LABS Monitor and replace as needed DVT prophylaxis Lovenox SCDs DC TO SNF IF BED BECOMES AVAILABLE Code Status: FULL CODE Discussed Condition With: RN AND PT AND CM AND FAMILY - Time Spent with Patient Total time spent providing and/or coordinating discharge services: Greater than 30 minutes - Quality: VTE Deep Vein Thrombosis/Pulmonary Embolism Present on Admission: No Exam Vital signs: Vital Signs 04/26/18 15:36 04/26/18 15:37 04/26/18 15:59 Temperature 98.7 F Pulse Rate 87 76 Respiratory Rate 18 22 Blood Pressure 172/81 H Pulse Oximetry 99 98 04/26/18 20:00 04/26/18 23:43 04/27/18 00:00 Temperature 98.8 F 98.6 F Pulse Rate 81 71 80 Respiratory Rate 20 18 18 Blood Pressure 164/91 H 154/62 H Pulse Oximetry 94 L 96 04/27/18 03:22 04/27/18 04:00 04/27/18 08:00 Temperature 97.6 F 98.1 F Pulse Rate 90 80 Respiratory Rate 18 18 19 Blood Pressure 151/80 H 183/84 H Pulse Oximetry 96 97 04/27/18 09:32 04/27/18 12:00 Temperature 97.9 F Pulse Rate 77 63 Respiratory Rate 16 19 Blood Pressure 185/85 H Pulse Oximetry 95 97 Intake & Output 04/26/18 04/27/18 04/27/18 18:59 06:59 18:59 Intake Total 1720 / 1720 820 / 820 Output Total 0 / 0 1450 / 1450 Balance 1720 / 1720 0 / 0 -630 / -630 Intake: IV 1000 / 1000 100 / 100 LR 1000 mL Inj 1,000 ML @ 42 1000 / 1000 mls/hr IV.CONT .[id number] [facility] Rx# :[id number] Magnesium Sulfate 1 gm/D5W 100 100 / 100 ml Premix 100 ML @ 100 mls/hr IV.SIG Q1H [facility] Rx#:[id number] Oral 720 / 720 720 / 720 Output: Urine 0 / 0 0 / 0 Stool 0 / 0 Urine Amount (Catheter) 1450 / 1450 Indwelling Urethral Catheter 1450 / 1450 Other: # Voids 1 1 Date of Last Bowel Movement 04/25/18 04/27/18 # Bowel Movements 1 1 Narrative: GENERAL: NAD, A&Ox3 HEAD: Normocephalic. NECK: Supple, trachea midline. No lymphadenopathy. EYES: No scleral icterus. No injection or drainage. CARDIOVASCULAR: Regular rate and rhythm without murmurs, gallops, or rubs. RESPIRATORY: Breath sounds equal bilaterally. No accessory muscle use. GASTROINTESTINAL: Abdomen soft, non-tender, nondistended. MUSCULOSKELETAL: No cyanosis, or edema. SKIN: Warm and dry. NEURO: No focal neurological deficits. Results Procedures completed during hospitalization: VDRF INTUBATION EXTUBATION Completed studies during hospitalization: Laboratory Results WBC 8.7 th/mm3 (4.0-11.0) 04/27/18 03:30 RBC 3.41 mil/mm3 (4.00-5.30) L 04/27/18 03:30 Hgb 9.5 gm/dL (11.6-15.3) L 04/27/18 03:30 Hct 28.8 % (35.0-46.0) L 04/27/18 03:30 MCV 84.7 fL (80.0-100.0) 04/27/18 03:30 MCH 27.9 pg (27.0-34.0) 04/27/18 03:30 MCHC 32.9 % (32.0-36.0) 04/27/18 03:30 RDW 14.7 % (11.6-17.2) 04/27/18 03:30 Plt Count 242 th/mm3 (150-450) 04/27/18 03:30 MPV 8.7 fL (7.0-11.0) 04/27/18 03:30 Prelim Diff (Auto) Manual diff required 04/26/18 05:29 Neut % (Auto) 56.5 % (16.0-70.0) 04/27/18 03:30 Lymph % (Auto) 25.6 % (9.0-44.0) 04/27/18 03:30 [place] % (Auto) 13.9 % (0.0-8.0) H 04/27/18 03:30 Eos % (Auto) 3.0 % (0.0-4.0) 04/27/18 03:30 Baso % (Auto) 1.0 % (0.0-2.0) 04/27/18 03:30 Neut # (Auto) 4.9 th/mm3 (1.8-7.7) 04/27/18 03:30 Lymph # (Auto) 2.2 th/mm3 (1.0-4.8) 04/27/18 03:30 [place] # (Auto) 1.2 th/mm3 (0.0-0.9) H 04/27/18 03:30 Eos # (Auto) 0.3 th/mm3 (0.0-0.4) 04/27/18 03:30 Baso # (Auto) 0.1 th/mm3 (0.0-0.2) 04/27/18 03:30 WBC Differential . 04/27/18 03:30 Seg Neuts % (Manual) 62 % (16-70) 04/26/18 05:29 Band Neuts % (Manual) 3 % (0-6) 04/26/18 05:29 Lymphocytes % (Manual) 24 % (9-44) 04/26/18 05:29 Atypical Lymphs % (Man) 7 % (0-0) H 04/26/18 05:29 Eosinophils % (Manual) 4 % (0-4) 04/26/18 05:29 Abs Neuts (Manual) 6.7 th/mm3 (1.8-7.7) 04/26/18 05:29 Differential Comment Auto diff final 04/27/18 03:30 Platelet Estimate Normal (Normal) 04/26/18 05:29 Platelet Morphology Normal (Normal) 04/26/18 05:29 Acanthocytes (Spur) Occ (None) H 04/26/18 05:29 PT 10.3 sec (9.8-11.6) 04/27/18 03:30 INR 1.0 Ratio 04/27/18 03:30 Puncture Site Left radial 04/21/18 09:53 Patient Temperature 98.6 04/21/18 09:53 O2 Saturation 96 % (90-100) 04/21/18 09:53 ABG pH 7.30 (7.380-7.420) L 04/21/18 09:53 ABG pCO2 39 mmHg (38-42) 04/21/18 09:53 ABG pO2 144 mmHg (61-120) H 04/21/18 09:53 ABG HCO3 18 mmol/L (22-26) L 04/21/18 09:53 ABG O2 Content 14.1 Vol % (12.0-20.0) 04/21/18 09:53 ABG Base Excess -7.0 mmol/L (-2-2) L 04/21/18 09:53 ABG Methemoglobin 0.6 % (0-2) 04/21/18 09:53 Jordan Test Present 04/21/18 09:53 Hemoglobin 10.3 G/DL (12.0-16.0) L 04/21/18 09:53 Carboxyhemoglobin 2.6 % (0-4) 04/21/18 09:53 O2 Delivery Device Ventilator 04/21/18 09:53 Vent Setting Prvc/ac 04/21/18 09:53 Inspired O2 40 % 04/21/18 09:53 Critical Value No 04/21/18 09:53 Sodium 147 meq/L (136-145) H 04/27/18 03:30 Potassium 3.3 meq/L (3.5-5.1) L 04/27/18 03:30 Chloride 112 meq/L (98-107) H 04/27/18 03:30 Carbon Dioxide 23.0 meq/L (21.0-32.0) 04/27/18 03:30 Anion Gap 12 meq/L (5-15) 04/27/18 03:30 BUN 13 mg/dL (7-18) 04/27/18 03:30 Creatinine 0.98 mg/dL (0.50-1.00) 04/27/18 03:30 Estimated GFR 68 mL/min (>89) L 04/27/18 03:30 POC Glucose 169 mg/dl (68-110) H 04/27/18 11:24 Random Glucose 121 mg/dL (74-106) H 04/27/18 03:30 Hemoglobin A1c 6.1 % (4.3-6.0) H 04/27/18 03:30 Uric Acid 3.6 mg/dl (2.6-6.0) 04/23/18 10:22 Calcium 8.7 mg/dL (8.5-10.1) 04/27/18 03:30 Phosphorus 2.9 mg/dL (2.5-4.9) 04/27/18 03:30 Magnesium 1.7 mg/dL (1.5-2.5) 04/27/18 03:30 Total Bilirubin 0.7 mg/dL (0.2-1.0) 04/27/18 03:30 AST 111 U/L (15-37) H 04/27/18 03:30 ALT 107 U/L (10-53) H 04/27/18 03:30 Alkaline Phosphatase 129 U/L (45-117) H 04/27/18 03:30 Ammonia 29 mcmol/L (11-32) 04/26/18 05:29 Total Creatine Kinase 359 U/L (26-192) H 04/21/18 18:50 CK-MB (CK-2) 4.2 ng/mL (0.5-3.6) H 04/21/18 18:50 CK-MB (CK-2) % 1.2 % (0.0-4.0) 04/21/18 18:50 Troponin I 0.03 ng/mL (0.02-0.05) 04/21/18 18:50 Total Protein 7.3 g/dL (6.4-8.2) 04/27/18 03:30 Albumin 2.9 g/dL (3.4-5.0) L 04/27/18 03:30 TSH 1.970 uIU/mL (0.358-3.740) 04/27/18 03:30 Free T4 1.28 ng/dL (0.76-1.46) 04/27/18 03:30 Urine Color Yellow (Yellw/Straw) 04/21/18 09:12 Urine Clarity Cloudy (Clear) H 04/21/18 09:12 Urine pH 5.0 (5.0-8.5) 04/21/18 09:12 Ur Specific [place] 1.029 (1.002-1.035) 04/21/18 09:12 Urine Protein 30 mg/dL (Neg-Trace) H 04/21/18 09:12 Urine Glucose (UA) Negative mg/dL (Negative) 04/21/18 09:12 Urine Ketones Trace mg/dL (Negative) H 04/21/18 09:12 Urine Occult Blood Negative (Negative) 04/21/18 09:12 Urine Nitrate Negative (Negative) 04/21/18 09:12 Urine Bilirubin Negative (Negative) 04/21/18 09:12 Urine Ictotest Negative (Negative) 04/21/18 09:12 Urine Urobilinogen 2.0 mg/dL (Less than 2) H 04/21/18 09:12 Ur Leukocyte Esterase Trace (Negative) H 04/21/18 09:12 Urine RBC 2 /hpf (0-3) 04/21/18 09:12 Urine WBC 4 /hpf (0-5) 04/21/18 09:12 Ur Squamous Epith Cells 2 /hpf (0-5) 04/21/18 09:12 Urine Bacteria Occasional /hpf (None) H 04/21/18 09:12 Hyaline Casts 30 /lpf (0-3) 04/21/18 09:12 Micro UA Comment Culture not ind 04/21/18 09:12 Ur Microscopic Review Not Reportable 04/21/18 09:12 Urine Culture Comments Culture not ind 04/21/18 09:12 Urine Eosinophils None seen /HPF (None Seen) 04/21/18 14:00 Ur Random Creatinine 369 mg/dL (27-300) H 04/21/18 09:12 Ur Random Sodium 56 meq/L 04/21/18 09:12 Nasal Screen MRSA (PCR) Not detected (Negative) 04/21/18 13:45 Salicylates 3.3 mg/dL (2.8-20.0) 04/21/18 09:12 Urine Opiates Screen Neg (Neg) 04/21/18 09:12 Acetaminophen Less than 2.0 mcg/mL (10.0-30.0) L 04/21/18 09:12 Ur Barbiturates Screen Neg (Neg) 04/21/18 09:12 Ur Amphetamines Screen Neg (Neg) 04/21/18 09:12 U Benzodiazepines Scrn Neg (Neg) 04/21/18 09:12 Urine Cocaine Screen Neg (Neg) 04/21/18 09:12 U Cannabinoids Screen Neg (Neg) 04/21/18 09:12 Serum Alcohol Less than 3 mg/dL (0-5) 04/21/18 09:12 Impressions Abdomen/Bladder Ultrasound 04/21/18 00:00 CONCLUSION: 1. Smaller left kidney otherwise unremarkable appearance bilaterally. 2. Bladder is decompressed by a Trivedi catheter. Head MRI 04/21/18 00:00 CONCLUSION: 1. Negative MR Brain non contrast. Head MRA 04/21/18 00:00 CONCLUSION: 1. Negative MRA Cow ([place]) non contrast without evidence of aneurysm. Prominent right posterior communicating artery. Neck MRA 04/21/18 00:00 CONCLUSION: 1. Markedly diminutive, not well evaluated right vertebral artery. 2. The bilateral carotid arteries and left vertebral artery are widely patent. _ Percent stenosis is calculated using the diameter of the stenotic region over the diameter of the normal distal internal carotid artery _ Cervical Spine CT 04/21/18 08:58 CONCLUSION: Degenerative changes. No evidence of acute bony process in the cervical spine. Head CT 04/21/18 08:58 CONCLUSION: 1. Negative CT Head non contrast. . Chest X-Ray 04/22/18 06:00 CONCLUSION: 1. Stable ETT and NGT. 2. Minimal left lung base airspace disease, likely atelectasis. Foot X-Ray 04/23/18 00:00 CONCLUSION: No acute abnormality. Venous Doppler Study 04/23/18 00:00 CONCLUSION: No evidence of lower extremity DVT on the right or left. Labs on day of discharge: Labs from last 24 hours 04/27/18 04/27/18 04/27/18 11:24 09:00 05:58 WBC RBC Hgb Hct MCV MCH MCHC RDW Plt Count MPV Neut % (Auto) Lymph % (Auto) [place] % (Auto) Eos % (Auto) Baso % (Auto) Neut # (Auto) Lymph # (Auto) [place] # (Auto) Eos # (Auto) Baso # (Auto) WBC Differential Differential Comment PT INR Sodium Potassium Chloride Carbon Dioxide Anion Gap BUN Creatinine Estimated GFR POC Glucose 169 H 134 H 148 H Random Glucose Hemoglobin A1c Calcium Phosphorus Magnesium Total Bilirubin AST ALT Alkaline Phosphatase Total Protein Albumin TSH Free T4 04/27/18 04/27/18 04/27/18 03:30 03:30 03:30 WBC RBC Hgb Hct MCV MCH MCHC RDW Plt Count MPV Neut % (Auto) Lymph % (Auto) [place] % (Auto) Eos % (Auto) Baso % (Auto) Neut # (Auto) Lymph # (Auto) [place] # (Auto) Eos # (Auto) Baso # (Auto) WBC Differential Differential Comment PT 10.3 INR 1.0 Sodium 147 H Potassium 3.3 L Chloride 112 H Carbon Dioxide 23.0 Anion Gap 12 BUN 13 Creatinine 0.98 Estimated GFR 68 L POC Glucose Random Glucose 121 H Hemoglobin A1c 6.1 H Calcium 8.7 Phosphorus 2.9 Magnesium 1.7 Total Bilirubin 0.7 AST 111 H ALT 107 H Alkaline Phosphatase 129 H Total Protein 7.3 Albumin 2.9 L TSH 1.970 Free T4 1.28 04/27/18 04/26/18 04/26/18 03:30 23:56 16:45 WBC 8.7 RBC 3.41 L Hgb 9.5 L Hct 28.8 L MCV 84.7 MCH 27.9 MCHC 32.9 RDW 14.7 Plt Count 242 MPV 8.7 Neut % (Auto) 56.5 Lymph % (Auto) 25.6 [place] % (Auto) 13.9 H Eos % (Auto) 3.0 Baso % (Auto) 1.0 Neut # (Auto) 4.9 Lymph # (Auto) 2.2 [place] # (Auto) 1.2 H Eos # (Auto) 0.3 Baso # (Auto) 0.1 WBC Differential . Differential Comment Auto diff final PT INR Sodium Potassium Chloride Carbon Dioxide Anion Gap BUN Creatinine Estimated GFR POC Glucose 133 H 116 H Random Glucose Hemoglobin A1c Calcium Phosphorus Magnesium Total Bilirubin AST ALT Alkaline Phosphatase Total Protein Albumin TSH Free T4 - Impressions ITS Impressions Abdomen/Bladder Ultrasound 04/21/18 00:00 CONCLUSION: 1. Smaller left kidney otherwise unremarkable appearance bilaterally. 2. Bladder is decompressed by a Trivedi catheter. Head MRI 04/21/18 00:00 CONCLUSION: 1. Negative MR Brain non contrast. Head MRA 04/21/18 00:00 CONCLUSION: 1. Negative MRA [place] ([place]) non contrast without evidence of aneurysm. Prominent right posterior communicating artery. Neck MRA 04/21/18 00:00 CONCLUSION: 1. Markedly diminutive, not well evaluated right vertebral artery. 2. The bilateral carotid arteries and left vertebral artery are widely patent. _ Percent stenosis is calculated using the diameter of the stenotic region over the diameter of the normal distal internal carotid artery _ Cervical Spine CT 04/21/18 08:58 CONCLUSION: Degenerative changes. No evidence of acute bony process in the cervical spine. Head CT 04/21/18 08:58 CONCLUSION: 1. Negative CT Head non contrast. . Chest X-Ray 04/22/18 06:00 CONCLUSION: 1. Stable ETT and NGT. 2. Minimal left lung base airspace disease, likely atelectasis. Foot X-Ray 04/23/18 00:00 CONCLUSION: No acute abnormality. Venous Doppler Study 04/23/18 00:00 CONCLUSION: No evidence of lower extremity DVT on the right or left. Discharge Plan - Discharge Disposition Patient Disposition: 03 Discharge to SNF - Discharge Condition Condition: Good - Discharge Order Discharge Orders: Discharge Order (Routine); Ordered 04/27/18 Ordered By: Jaret Copeland - Discharge Details Anticipated Discharge Date: 04/27/18 Discharge Comment: DC TO SNF WHEN BED AVAILABLE - Physicians Team Primary Care Provider: UNKNOWN, Attending Provider: Jaret Copeland Other Providers: [employer] ; [facility]
[2018-04-27] MEDS: hydrALAZINE 25 MG Tablet PO PRN (19:00)
[2018-04-28] MEDS: hydrALAZINE 25 MG Tablet PO PRN ×3 (01:30→21:52)
[2018-04-28] MEDS: Oral Hygiene Kit OROPHARYNG SCH ×3 (03:08→17:07)
[2018-04-28 05:03] LABS: Baso # (Auto) 0.1 th/mm3 (0.0-0.2); Baso % (Auto) 0.6 % (0.0-2.0); Eos # (Auto) 0.2 th/mm3 (0.0-0.4); Eos % (Auto) 1.7 % (0.0-4.0); Hematocrit 31.5 % (35.0-46.0); Hemoglobin 10.4 gm/dL (11.6-15.3); Lymph # (Auto) 2.2 th/mm3 (1.0-4.8); Lymph % (Auto) 22.7 % (9.0-44.0); Mean Corpuscular HGB Conc 33.2 % (32.0-36.0); Mean Corpuscular Hemoglobin 28.1 pg (27.0-34.0); Mean Corpuscular Volume 84.6 fL (80.0-100.0); Mean Platelet Volume 8.3 fL (7.0-11.0); Mono # (Auto) 1.3 th/mm3 (0.0-0.9); Mono % (Auto) 13.2 % (0.0-8.0); Neut # (Auto) 6.1 th/mm3 (1.8-7.7); Neut % (Auto) 61.8 % (16.0-70.0); Platelet Count 269 th/mm3 (150-450); Red Blood Count 3.72 mil/mm3 (4.00-5.30); Red Cell Distribution Width 14.7 % (11.6-17.2); White Blood Count 9.9 th/mm3 (4.0-11.0)
[2018-04-28 05:45] LABS: Albumin 3.2 g/dL (3.4-5.0); Anion Gap 11 meq/L (5-15); Aspartate Aminotransferase 108 U/L (15-37); Blood Urea Nitrogen 10 mg/dL (7-18); Calcium 9.1 mg/dL (8.5-10.1); Carbon Dioxide 22.5 meq/L (21.0-32.0); Chloride 110 meq/L (98-107); Glomerular Filtration Rate 65 mL/min (>89); Magnesium 2.3 mg/dL (1.5-2.5); Potassium 3.6 meq/L (3.5-5.1); Sodium 143 meq/L (136-145)
[2018-04-28 05:46] LABS: Glucose,Random 127 mg/dL (74-106)
[2018-04-28 05:50] LABS: Alanine Aminotransferase 124 U/L (10-53); Alkaline Phosphatase 138 U/L (45-117); Phosphorus 2.7 mg/dL (2.5-4.9)
[2018-04-28] MEDS: Insulin NovoLOG Aspart Correctional Sugar Inj SQ SCH ×3 (06:53→17:14)
[2018-04-28] MEDS: Chlorhexidine 0.12% Oral Kit 15 ML UDC OROPHARYNG SCH ×2 (07:01→20:51)
[2018-04-28] MEDS: Metoprolol Tartrate 50 MG Tablet PO SCH ×2 (08:14→20:50)
[2018-04-28] MEDS: Ezetimibe 10 MG Tablet PO SCH (08:14)
[2018-04-28] MEDS: Senna/Docusate Sodium 8.6/50 MG Tablet PO SCH ×2 (08:15→20:51)
--- NOTE | 2018-04-28 08:53 | P.PNIM ---
Subjective Interval history: was afebrile with HTN overnight (max SBP 221/102 last night). Patient reports that she has had burning with urination and right back/flank pain recently and is concerned she has a UTI. Patient also reports increased cough and sputum production. Patient also reports right ankle pain which she states she acquired from fall injury. No chest pain, shortness of breath, or bowel abnormalities reported. Physical Exam Vital signs: Vital Signs 04/27/18 09:32 04/27/18 12:00 04/27/18 15:25 Temperature 97.9 F Pulse Rate 77 63 74 Respiratory Rate 16 19 16 Blood Pressure 185/85 H Pulse Oximetry 95 97 04/27/18 16:00 04/27/18 20:00 04/27/18 23:52 Temperature 98.4 F 97.6 F Pulse Rate 77 80 77 Respiratory Rate 19 18 22 Blood Pressure 174/100 H 221/102 H Pulse Oximetry 98 100 04/28/18 00:00 04/28/18 04:00 04/28/18 07:33 Temperature 99.3 F 97.9 F Pulse Rate 78 78 Respiratory Rate 18 18 Blood Pressure 202/91 H 173/72 H 189/91 H Pulse Oximetry 95 99 04/28/18 07:51 Temperature Pulse Rate 78 Respiratory Rate 18 Blood Pressure Pulse Oximetry Intake & Output 04/27/18 04/28/18 04/28/18 18:59 06:59 18:59 Intake Total 2924 / 2924 100 / 100 1000 / 1000 Output Total 2900 / 2900 Balance 24 / 24 100 / 100 1000 / 1000 Weight 115.2 kg Intake: IV 1300 / 1300 100 / 100 1000 / 1000 LR 1000 mL Inj 1,000 ML @ 42 1000 / 1000 0 / 0 1000 / 1000 mls/hr IV.CONT .[id number] KARELY Rx# :[id number] Magnesium Sulfate 1 gm/D5W 100 300 / 300 100 / 100 ml Premix 100 ML @ 100 mls/hr IV.SIG Q1H KARELY Rx#:[id number] Oral 720 / 720 Other 904 / 904 Output: Urine 0 / 0 Stool 0 / 0 Urine Amount (Catheter) 2900 / 2900 Indwelling Urethral Catheter 2900 / 2900 Other: # Voids 1 3 Date of Last Bowel Movement 04/27/18 04/27/18 # Bowel Movements 1 Narrative: GENERAL: NAD HEAD: Normocephalic. NECK: Supple, trachea midline. No lymphadenopathy. EYES: No scleral icterus. No injection or drainage. CARDIOVASCULAR: Regular rate and rhythm without murmurs. Normal perfusion RESPIRATORY: Some bilateral expiratory congestion; likely referred from upper airways. Normal rate GASTROINTESTINAL: Abdomen soft, non-tender, nondistended. Back: R back/flank pain MUSCULOSKELETAL: No cyanosis, or edema. R ankle with pain to palpation around lateral malleoli SKIN: Warm and dry. NEURO: Awake, alert. Grossly normal CN. Grossly normal peripheral motor/sensory function. - Urinary Catheter Management Indwelling Urethral Catheter Cath placed during this visit: yes, but has since been removed by the nurse Reason for continuing: Decision to DC catheter Insertion date: 04/23/18 Insertion time: 11:30 Removal date: 04/26/18 Removal time: 15:15 Results - Labs CBC & Chem 7: 04/28/18 03:51 04/28/18 03:51 Laboratory Results - last 24 hr 04/27/18 04/27/18 04/27/18 03:30 09:00 11:24 WBC RBC Hgb Hct MCV MCH MCHC RDW Plt Count MPV Neut % (Auto) Lymph % (Auto) Elbert % (Auto) Eos % (Auto) Baso % (Auto) Neut # (Auto) Lymph # (Auto) Elbert # (Auto) Eos # (Auto) Baso # (Auto) WBC Differential Differential Comment Sodium Potassium Chloride Carbon Dioxide Anion Gap BUN Creatinine Estimated GFR POC Glucose 134 H 169 H Random Glucose Hemoglobin A1c 6.1 H Calcium Phosphorus Magnesium Total Bilirubin AST ALT Alkaline Phosphatase Total Protein Albumin 04/27/18 04/27/18 04/28/18 15:41 23:30 03:51 WBC 9.9 RBC 3.72 L Hgb 10.4 L Hct 31.5 L MCV 84.6 MCH 28.1 MCHC 33.2 RDW 14.7 Plt Count 269 MPV 8.3 Neut % (Auto) 61.8 Lymph % (Auto) 22.7 Elbert % (Auto) 13.2 H Eos % (Auto) 1.7 Baso % (Auto) 0.6 Neut # (Auto) 6.1 Lymph # (Auto) 2.2 Elbert # (Auto) 1.3 H Eos # (Auto) 0.2 Baso # (Auto) 0.1 WBC Differential . Differential Comment Auto diff final Sodium Potassium Chloride Carbon Dioxide Anion Gap BUN Creatinine Estimated GFR POC Glucose 158 H 129 H Random Glucose Hemoglobin A1c Calcium Phosphorus Magnesium Total Bilirubin AST ALT Alkaline Phosphatase Total Protein Albumin 04/28/18 04/28/18 03:51 05:43 WBC RBC Hgb Hct MCV MCH MCHC RDW Plt Count MPV Neut % (Auto) Lymph % (Auto) Elbert % (Auto) Eos % (Auto) Baso % (Auto) Neut # (Auto) Lymph # (Auto) Elbert # (Auto) Eos # (Auto) Baso # (Auto) WBC Differential Differential Comment Sodium 143 Potassium 3.6 Chloride 110 H Carbon Dioxide 22.5 Anion Gap 11 BUN 10 Creatinine 1.01 H Estimated GFR 65 L POC Glucose 134 H Random Glucose 127 H Hemoglobin A1c Calcium 9.1 Phosphorus 2.7 Magnesium 2.3 D Total Bilirubin 0.5 AST 108 H ALT 124 H Alkaline Phosphatase 138 H Total Protein 8.0 D Albumin 3.2 L - Procedures VDRF INTUBATION EXTUBATION Assessment and Plan - Assessment (1) RODRIGUEZ (acute kidney injury) Code(s): N17.9 - Acute kidney failure, unspecified Status: Resolved (2) Acute dehydration Code(s): E86.0 - Dehydration Status: Resolved (3) Altered mental status Code(s): R41.82 - Altered mental status, unspecified Status: Resolved - Plan Mrs. Matute is a 72-year-old female admitted secondary to delirium with respiratory failure: Acute delirium Chronic pain syndrome Peripheral neuropathy Impression: Delirium resolved. MRI 04/21 wnl Caution with narcotics Caution with gabapentin Cardiovascular Uncontrolled hypertension History of essential hypertension Hyperlipidemia Impression: Persistent BP elevations 04/28 -BP control -Continue metoprolol 50 mg twice daily (increased from 25mg BID home dose) -Norvasc 5 mg daily -Will start Lisinopril 10mg daily -Continue hydralazine PRN -Will add Vasotec PRN -Continue atorvastatin -Continue ezetimibe Respiratory Acute respiratory failure - Resolved Impression: Patient initially intubated; extubated 04/23/200804/28- reported increased cough and sputum production -Continue as needed nebulized treatments -Will check CXR Hypoalbuminemia Continue p.o. intake Diabetes mellitus Acute hyperglycemia Impression: Diabetes mellitus type 2. Controlled at home with Metformin, Glimepiride Follow blood sugars -Insulin sliding scale -Diabetic diet Renal/ RODRIGUEZ on admission Impression: Cr 2.48 on admission-> 1.01 (04/28) 04/28- urinary burning reported in association with back pain -Continue to monitor BMP -Will check UA Normocytic anemia Monitor CBC daily. Follow trends Osteoarthritis Elevate BMI Debility Generalized weakness Continue physical therapy Anticipated half-way facility at discharge Electrolytes Hypernatremia, Hypocalcemia, Hypokalemia resolved -Monitor and replace as needed DVT prophylaxis Lovenox SCDs Code Status: Full code (3) Altered mental status Qualifiers: Altered mental status type: delirium Qualified Code(s): R41.0 - Disorientation, unspecified
[2018-04-28] MEDS: amLODIPine 5 MG Tablet PO SCH (09:00)
--- NOTE | 2018-04-28 09:19 | XR ---
EXAM DATE: 04/28/2018 9:17 AM EDT AGE/SEX: 72 years / Female INDICATIONS: Cough. CLINICAL DATA: This is the patient's subsequent encounter. Patient reports that signs and symptoms h ave been present for 2 weeks and indicates a pain score of 2/10. MEDICAL/SURGICAL HISTORY: . Hypertension. Acute kidney injury. Diabetes. Hyperlipidemia. Anemia . Neuropathy. Appendectomy. Laminectomy. Total knee arthroplasty. . [place]PAR[place] [facility] [place]. . FINDINGS: A single AP view of the chest demonstrates the lungs to be symmetrically aerated without evidence of mass, infiltrate or effusion. The cardiomediastinal contours are unremarkable. Osseous structures a re intact. CONCLUSION: Negative examination. Electronically signed by: Bola Buck MD 04/28/2018 9:18 AM EDT
[2018-04-28] MEDS: Lisinopril 10 MG Tablet PO SCH (09:30)
[2018-04-28] MEDS: Carboxymethylcellulose 0.5% Opth Drops 15 ML Bottle EACH EYE SCH ×2 (14:47→21:53)
[2018-04-28] MEDS: Enoxaparin Inj 40 MG/0.4 ML Syringe SQ SCH (14:47)
[2018-04-28] MEDS: Acetaminophen Inj 650 MG/65 ML VIAL IV.SIG PRN (14:52)
[2018-04-28] MEDS: Acetaminophen 325 MG Tablet NG/OG PRN (21:51)
[2018-04-29] MEDS: Acetaminophen Inj 650 MG/65 ML VIAL IV.SIG PRN ×3 (00:35→22:36)
[2018-04-29] MEDS: Insulin NovoLOG Aspart Correctional Sugar Inj SQ SCH ×4 (02:17→19:33)
[2018-04-29] MEDS: Oral Hygiene Kit OROPHARYNG SCH ×4 (04:20→19:31)
[2018-04-29] MEDS: hydrALAZINE 25 MG Tablet PO PRN (05:17)
[2018-04-29] MEDS: Acetaminophen 325 MG Tablet NG/OG PRN ×2 (05:17→18:23)
[2018-04-29 06:15] LABS: Baso % (Auto) 0.5 % (0.0-2.0); Eos # (Auto) 0.3 th/mm3 (0.0-0.4); Eos % (Auto) 2.6 % (0.0-4.0); Hematocrit 28.9 % (35.0-46.0); Hemoglobin 9.4 gm/dL (11.6-15.3); Lymph # (Auto) 2.5 th/mm3 (1.0-4.8); Lymph % (Auto) 25.3 % (9.0-44.0); Mean Corpuscular HGB Conc 32.5 % (32.0-36.0); Mean Corpuscular Hemoglobin 27.7 pg (27.0-34.0); Mean Corpuscular Volume 85.2 fL (80.0-100.0); Mean Platelet Volume 8.2 fL (7.0-11.0); Mono # (Auto) 1.1 th/mm3 (0.0-0.9); Mono % (Auto) 11.1 % (0.0-8.0); Neut % (Auto) 60.5 % (16.0-70.0); Platelet Count 253 th/mm3 (150-450); Red Cell Distribution Width 14.7 % (11.6-17.2); White Blood Count 9.9 th/mm3 (4.0-11.0)
[2018-04-29 06:33] LABS: Albumin 2.7 g/dL (3.4-5.0); Anion Gap 9 meq/L (5-15); Aspartate Aminotransferase 70 U/L (15-37); Blood Urea Nitrogen 12 mg/dL (7-18); Calcium 8.7 mg/dL (8.5-10.1); Carbon Dioxide 26.2 meq/L (21.0-32.0); Chloride 110 meq/L (98-107); Glomerular Filtration Rate 63 mL/min (>89); Glucose,Random 166 mg/dL (74-106); Potassium 3.4 meq/L (3.5-5.1); Sodium 145 meq/L (136-145)
[2018-04-29 06:37] LABS: Alanine Aminotransferase 99 U/L (10-53); Alkaline Phosphatase 122 U/L (45-117); Total Protein 6.9 g/dL (6.4-8.2)
[2018-04-29] MEDS: Chlorhexidine 0.12% Oral Kit 15 ML UDC OROPHARYNG SCH ×2 (08:16→22:33)
[2018-04-29] MEDS: Ezetimibe 10 MG Tablet PO SCH (09:59)
[2018-04-29] MEDS: Metoprolol Tartrate 50 MG Tablet PO SCH ×2 (10:00→22:31)
[2018-04-29] MEDS: Lisinopril 10 MG Tablet PO SCH (10:00)
[2018-04-29] MEDS: amLODIPine 5 MG Tablet PO SCH (10:00)
[2018-04-29] MEDS: Senna/Docusate Sodium 8.6/50 MG Tablet PO SCH ×2 (10:00→22:33)
[2018-04-29] MEDS: Carboxymethylcellulose 0.5% Opth Drops 15 ML Bottle EACH EYE SCH ×2 (10:01→22:33)
[2018-04-29] MEDS: Enoxaparin Inj 40 MG/0.4 ML Syringe SQ SCH (12:13)
[2018-04-29] MEDS ORDERED: amLODIPine 5 MG Tablet PO ONE (14:05)
[2018-04-29 14:25] LABS: Bacteria,Urine Rare /hpf; Bilirubin,Urine Negative (Negative); Clarity,Urine Hazy (Clear); Color,Urine Yellow (Yellw/Straw); Glucose,Urine (UA) Negative (Negative); Leukocyte Esterase,Urine Negative (Negative); Mucus,Urine Few /lpf (Occasional); Nitrite,Urine Negative (Negative); Squamous Epithelial Cell,Urine 4 /hpf (0-5)
--- NOTE | 2018-04-29 16:39 | P.PNIM ---
Subjective Interval history: Mrs. Matute was afebrile with HTN overnight; SBP max 186. Patient reports that she has a sore throat and cough at this time; she feels that coughing and breathing deeply hurt across her "breasts." Patient also reports productive sputum. Patient also reports generalized feeling poorly; she reports continued discomfort with urination. No reported abdominal pain. No bowel changes reported. Physical Exam Vital signs: Vital Signs 04/28/18 20:00 04/28/18 23:38 04/29/18 04:00 Temperature 98.1 F 99.0 F 98.9 F Pulse Rate 90 60 64 Respiratory Rate 18 18 18 Blood Pressure 179/90 H 186/75 H 181/76 H Pulse Oximetry 100 96 97 04/29/18 08:00 04/29/18 12:00 Temperature 98.7 F 98.2 F Pulse Rate 66 61 Respiratory Rate 18 18 Blood Pressure 139/65 177/71 H Pulse Oximetry 97 93 L Intake & Output 04/28/18 04/29/18 04/29/18 18:59 06:59 18:59 Intake Total 1065 / 1065 65 / 65 545 / 545 Output Total 6 / 6 Balance 1059 / 1059 65 / 65 545 / 545 Weight 113.5 kg Intake: IV 1065 / 1065 65 / 65 65 / 65 LR 1000 mL Inj 1,000 ML @ 42 1000 / 1000 mls/hr IV.CONT .[id number] KARELY Rx# :[id number] Ofirmev Inj 650 mg In 65 ml @ 65 / 65 65 / 65 65 / 65 400 mls/hr IV.SIG Q6H PRN Rx#: [id number] Oral 480 / 480 Output: Urine 5 / 5 Stool 1 / Other: # Voids 2 3 Date of Last Bowel Movement 04/28/18 # Bowel Movements 1 2 Narrative: GENERAL: NAD HEAD: Normocephalic. NECK: Supple, trachea midline. No lymphadenopathy. EYES: No scleral icterus. No injection or drainage. CARDIOVASCULAR: Regular rate and rhythm without murmurs. Normal perfusion RESPIRATORY: Some upper airway congestion. Normal rate Chest: some pain elicited with deep inspiration and cough GASTROINTESTINAL: Abdomen soft, non-tender, nondistended. Back: no reported back/flank pain today MUSCULOSKELETAL: No cyanosis, or edema. R ankle with continued pain to palpation around lateral malleoli SKIN: Warm and dry. NEURO: Awake, alert. Grossly normal CN. Grossly normal peripheral motor/sensory function. - Urinary Catheter Management Indwelling Urethral Catheter Cath placed during this visit: yes, but has since been removed by the nurse Reason for continuing: Decision to DC catheter Insertion date: 04/23/18 Insertion time: 11:30 Removal date: 04/26/18 Removal time: 15:15 Results - Labs CBC & Chem 7: 04/29/18 04:12 04/29/18 04:12 Laboratory Results - last 24 hr 04/28/18 04/29/18 04/29/18 20:49 01:45 04:12 WBC 9.9 RBC 3.40 L Hgb 9.4 L Hct 28.9 L MCV 85.2 MCH 27.7 MCHC 32.5 RDW 14.7 Plt Count 253 MPV 8.2 Neut % (Auto) 60.5 Lymph % (Auto) 25.3 Webb % (Auto) 11.1 H Eos % (Auto) 2.6 Baso % (Auto) 0.5 Neut # (Auto) 6.0 Lymph # (Auto) 2.5 Webb # (Auto) 1.1 H Eos # (Auto) 0.3 Baso # (Auto) 0.0 WBC Differential . Differential Comment Auto diff final Sodium Potassium Chloride Carbon Dioxide Anion Gap BUN Creatinine Estimated GFR POC Glucose 148 H 126 H Random Glucose Calcium Total Bilirubin AST ALT Alkaline Phosphatase Total Protein Albumin Urine Color Urine Clarity Urine pH Ur Specific [place] Urine Protein Urine Glucose (UA) Urine Ketones Urine Occult Blood Urine Nitrate Urine Bilirubin Urine Urobilinogen Ur Leukocyte Esterase Urine RBC Urine WBC Ur Squamous Epith Cells Urine Bacteria Urine Mucus Micro UA Comment Ur Microscopic Review Urine Culture Comments 04/29/18 04/29/18 04/29/18 04:12 05:16 12:12 WBC RBC Hgb Hct MCV MCH MCHC RDW Plt Count MPV Neut % (Auto) Lymph % (Auto) Webb % (Auto) Eos % (Auto) Baso % (Auto) Neut # (Auto) Lymph # (Auto) Webb # (Auto) Eos # (Auto) Baso # (Auto) WBC Differential Differential Comment Sodium 145 Potassium 3.4 L Chloride 110 H Carbon Dioxide 26.2 Anion Gap 9 BUN 12 Creatinine 1.04 H Estimated GFR 63 L POC Glucose 147 H 157 H Random Glucose 166 H Calcium 8.7 Total Bilirubin 0.4 AST 70 H ALT 99 H Alkaline Phosphatase 122 H Total Protein 6.9 D Albumin 2.7 L Urine Color Urine Clarity Urine pH Ur Specific [place] Urine Protein Urine Glucose (UA) Urine Ketones Urine Occult Blood Urine Nitrate Urine Bilirubin Urine Urobilinogen Ur Leukocyte Esterase Urine RBC Urine WBC Ur Squamous Epith Cells Urine Bacteria Urine Mucus Micro UA Comment Ur Microscopic Review Urine Culture Comments 04/29/18 13:55 WBC RBC Hgb Hct MCV MCH MCHC RDW Plt Count MPV Neut % (Auto) Lymph % (Auto) Webb % (Auto) Eos % (Auto) Baso % (Auto) Neut # (Auto) Lymph # (Auto) Webb # (Auto) Eos # (Auto) Baso # (Auto) WBC Differential Differential Comment Sodium Potassium Chloride Carbon Dioxide Anion Gap BUN Creatinine Estimated GFR POC Glucose Random Glucose Calcium Total Bilirubin AST ALT Alkaline Phosphatase Total Protein Albumin Urine Color Yellow Urine Clarity Hazy H Urine pH 5.0 Ur Specific [place] 1.020 Urine Protein 30 H Urine Glucose (UA) Negative Urine Ketones Negative Urine Occult Blood Negative Urine Nitrate Negative Urine Bilirubin Negative Urine Urobilinogen Less than 2 Ur Leukocyte Esterase Negative Urine RBC Less than 1 Urine WBC 1 Ur Squamous Epith Cells 4 Urine Bacteria Rare H Urine Mucus Few H Micro UA Comment Culture not ind Ur Microscopic Review Not Reportable Urine Culture Comments Culture not ind - Procedures VDRF INTUBATION EXTUBATION Assessment and Plan - Assessment (1) RODRIGUEZ (acute kidney injury) Code(s): N17.9 - Acute kidney failure, unspecified Status: Resolved (2) Acute dehydration Code(s): E86.0 - Dehydration Status: Resolved (3) Altered mental status Code(s): R41.82 - Altered mental status, unspecified Status: Resolved - Plan Mrs. Matute is a 72-year-old female admitted secondary to delirium with respiratory failure: Acute delirium Chronic pain syndrome Peripheral neuropathy Impression: Delirium resolved. MRI 04/21 wnl Caution with narcotics Caution with gabapentin Cardiovascular Uncontrolled hypertension History of essential hypertension Hyperlipidemia Impression: Persistent BP elevations 04/28 -BP control -Continue metoprolol 50 mg twice daily (increased from 25mg BID home dose) -Will increase Norvasc to 10 mg daily -Will give Lisinopril 20mg daily and plan to increase further -Continue hydralazine PRN -Will add Vasotec PRN -Continue atorvastatin -Continue ezetimibe Respiratory Acute respiratory failure - Resolved Impression: Patient initially intubated; extubated 04/23/201804/28-04/29- reported increased cough and sputum production; also pain with coughing and deep breathing -Repeat CXR negative 04/29 -Continue as needed nebulized treatments -Will give Tessalon Perles for cough, magic mouthwash for sore throat -Currently, no leukocytosis or symptoms suggestive of bacterial infection; will monitor and consider repeat CXR vs empiric ABX for atypical bacterial infection vs repeat CXR Hypoalbuminemia Continue p.o. intake Diabetes mellitus Acute hyperglycemia Impression: Diabetes mellitus type 2. Controlled at home with Metformin, Glimepiride Follow blood sugars -Insulin sliding scale -Diabetic diet Renal/ RODRIGUEZ on admission Impression: Cr 2.48 on admission-> 1.04 (04/29) 04/28- urinary burning reported in association with back pain 04/29 UA- not suggestive of UTI -Continue to monitor BMP -Will check UA Normocytic anemia Monitor CBC daily. Follow trends Osteoarthritis Elevate BMI Debility Generalized weakness Continue physical therapy Anticipated [facility] facility at discharge R ankle pain to palpation Impression: Prior XR negative 04/23 -Will provide with brace per [employer] Electrolytes Hypernatremia, Hypocalcemia, Hypokalemia resolved -Monitor and replace as needed DVT prophylaxis Lovenox SCDs Code Status: Full code Discharge Planning: Anticipate discharge to SNF once BP controlled (3) Altered mental status Qualifiers: Altered mental status type: delirium Qualified Code(s): R41.0 - Disorientation, unspecified
[2018-04-29] MEDS ORDERED: Benzonatate 100 MG Capsule PO PRN (16:42)
[2018-04-29] MEDS: Nystatin/Diphenhydramine/Lidocaine Mouthwash (Adult) 120 ML Botttle SWISH-SWAL SCH ×2 (19:31→22:32)
[2018-04-29] MEDS ORDERED: Lisinopril 20 MG Tablet PO ONE (21:31)
[2018-04-30] MEDS: Oral Hygiene Kit OROPHARYNG SCH ×3 (03:58→11:56)
[2018-04-30] MEDS: Insulin NovoLOG Aspart Correctional Sugar Inj SQ SCH ×3 (03:58→11:56)
[2018-04-30 07:03] LABS: Hematocrit 28.1 % (35.0-46.0); Hemoglobin 9.3 gm/dL (11.6-15.3); Mean Corpuscular Hemoglobin 27.7 pg (27.0-34.0); Mean Platelet Volume 8.3 fL (7.0-11.0); Platelet Count 293 th/mm3 (150-450); Red Blood Count 3.34 mil/mm3 (4.00-5.30); Red Cell Distribution Width 14.6 % (11.6-17.2); White Blood Count 10.1 th/mm3 (4.0-11.0)
[2018-04-30 07:59] LABS: Albumin 2.7 g/dL (3.4-5.0); Anion Gap 11 meq/L (5-15); Aspartate Aminotransferase 54 U/L (15-37); Blood Urea Nitrogen 13 mg/dL (7-18); Calcium 8.7 mg/dL (8.5-10.1); Carbon Dioxide 23.1 meq/L (21.0-32.0); Chloride 110 meq/L (98-107); Glomerular Filtration Rate 70 mL/min (>89); Glucose,Random 107 mg/dL (74-106); Potassium 3.6 meq/L (3.5-5.1); Sodium 144 meq/L (136-145)
[2018-04-30 08:04] LABS: Alanine Aminotransferase 83 U/L (10-53); Alkaline Phosphatase 120 U/L (45-117); Total Protein 7.2 g/dL (6.4-8.2)
[2018-04-30 08:11] LABS: Acanthocytes Occ; Eosinophils 2 % (0-4); Lymphocytes 35 % (9-44); Monocytes 8 % (0-8); Platelet Estimate Normal (Normal); Platelet Morphology Normal (Normal)
[2018-04-30] MEDS ORDERED: Lisinopril 20 MG Tablet PO SCH (09:00)
[2018-04-30] MEDS ORDERED: amLODIPine 10 MG Tablet PO SCH (09:00)
[2018-04-30] MEDS: Metoprolol Tartrate 50 MG Tablet PO SCH (09:33)
[2018-04-30] MEDS: Senna/Docusate Sodium 8.6/50 MG Tablet PO SCH (09:33)
[2018-04-30] MEDS: Chlorhexidine 0.12% Oral Kit 15 ML UDC OROPHARYNG SCH (09:33)
[2018-04-30] MEDS: Ezetimibe 10 MG Tablet PO SCH (09:33)
[2018-04-30] MEDS: Nystatin/Diphenhydramine/Lidocaine Mouthwash (Adult) 120 ML Botttle SWISH-SWAL SCH ×2 (09:34→12:21)
[2018-04-30] MEDS: Carboxymethylcellulose 0.5% Opth Drops 15 ML Bottle EACH EYE SCH (09:35)
--- NOTE | 2018-04-30 10:26 | US ---
EXAM DATE: 04/30/2018 9:37 AM EDT AGE/SEX: 72 years / Female INDICATIONS: Transaminase elevation. CLINICAL DATA: This is the patient's initial encounter. Patient reports that signs and symptoms have been present for 1 day and indicates a pain score of 0/10. MEDICAL/SURGICAL HISTORY: . Acute kidney injury (nontraumatic). Chronic pain syndrome. Diabet es mellitus. Hyperlipidemia. Hypertension. Normocytic anemia. Peripheral neuropathy. Former smok er. . Laminectomy. Appendectomy. Total knee arthroplasty. COMPARISON: [facility], KIDNEY/RENAL/BLADDER, 04/21/2018. . MEASUREMENTS: Liver:__ 15.1 cm. Common Bile Duct:__ 5mm. Right Kidney:__ 10.5 x 4.6 x 4.6 cm. FINDINGS: Liver: Normal echotexture without focal lesion or ductal dilatation. Portal Vein: Hepatopedal flow seen in portal vein. Common Duct: No intraluminal mass or stone visualized. Gallbladder: Minimal sludge in the gallbladder. Pancreas: The visualized portions are within normal limits Right Kidney: Mild dilatation of the right collecting system. Other: No ascites CONCLUSION: 1. Minimal sludge in the gallbladder 2. Mild dilatation right collecting system. Electronically signed by: Jaret Shukla MD 04/30/2018 10:24 AM EDT
--- NOTE | 2018-04-30 10:31 | P.PNIM ---
Subjective Interval history: Mrs. Matute had T 99.9F overnight; SBP 160's-180's overnight. Patient reports continued cough productive of "lumpy" phlegm; she also states that she has been losing her voice. Patient provides supplemental history that she quit smoking this year and that she has been a chronic smoker. Patient reports that she has been eating better. She does not report changes in urination/BM. Patient has continued R ankle pain. She states that she sees Dr. Underwood for chronic R knee pain; she will make a follow-up to re-evaluate ankle/knee. Physical Exam Vital signs: Vital Signs 04/29/18 12:00 04/29/18 16:00 04/29/18 20:00 Temperature 98.2 F 98.9 F 98.6 F Pulse Rate 61 66 84 Respiratory Rate 18 18 18 Blood Pressure 177/71 H 164/71 H 188/79 H Pulse Oximetry 93 L 94 L 94 L 04/30/18 00:00 04/30/18 04:00 04/30/18 08:00 Temperature 98.9 F 98.4 F 99.9 F H Pulse Rate 72 65 71 Respiratory Rate 18 18 18 Blood Pressure 171/67 H 166/71 H 183/77 H Pulse Oximetry 96 94 L 94 L Intake & Output 04/29/18 04/30/18 04/30/18 18:59 06:59 18:59 Intake Total 545 / 545 385 / 385 Output Total 200 / 200 200 / 200 Balance 345 / 345 385 / 385 -200 / -200 Intake: IV 65 / 65 65 / 65 Ofirmev Inj 650 mg In 65 ml @ 65 / 65 65 / 65 400 mls/hr IV.SIG Q6H PRN Rx#: [id number] Oral 480 / 480 320 / 320 Output: Urine 200 / 200 200 / 200 Other: # Voids 3 2 # Bowel Movements 1 Narrative: GENERAL: NAD HEENT: Normocephalic; throat clear. MMM NECK: Supple, trachea midline. No lymphadenopathy. EYES: No scleral icterus. No injection or drainage. CARDIOVASCULAR: Regular rate and rhythm without murmurs. Normal perfusion RESPIRATORY: Some upper airway congestion; decreased breath sounds consistent with prior. No wheezing. Normal rate GASTROINTESTINAL: Abdomen soft, non-tender, nondistended MUSCULOSKELETAL: No LE edema. R ankle with continued pain to palpation around lateral malleoli; brace in place SKIN: Warm and dry. NEURO: Awake, alert. Grossly normal CN. Grossly normal peripheral motor/sensory function. - Urinary Catheter Management Indwelling Urethral Catheter Cath placed during this visit: yes, but has since been removed by the nurse Reason for continuing: Decision to DC catheter Insertion date: 04/23/18 Insertion time: 11:30 Removal date: 04/26/18 Removal time: 15:15 Results - Labs CBC & Chem 7: 04/30/18 04:36 04/30/18 04:36 Laboratory Results - last 24 hr 04/29/18 04/29/18 04/29/18 12:12 13:55 18:25 WBC RBC Hgb Hct MCV MCH MCHC RDW Plt Count MPV Prelim Diff (Auto) WBC Differential Seg Neuts % (Manual) Lymphocytes % (Manual) Monocytes % (Manual) Eosinophils % (Manual) Abs Neuts (Manual) Differential Comment Platelet Estimate Platelet Morphology Acanthocytes (Spur) Sodium Potassium Chloride Carbon Dioxide Anion Gap BUN Creatinine Estimated GFR POC Glucose 157 H 115 H Random Glucose Calcium Total Bilirubin AST ALT Alkaline Phosphatase Total Protein Albumin Urine Color Yellow Urine Clarity Hazy H Urine pH 5.0 Ur Specific [place] 1.020 Urine Protein 30 H Urine Glucose (UA) Negative Urine Ketones Negative Urine Occult Blood Negative Urine Nitrate Negative Urine Bilirubin Negative Urine Urobilinogen Less than 2 Ur Leukocyte Esterase Negative Urine RBC Less than 1 Urine WBC 1 Ur Squamous Epith Cells 4 Urine Bacteria Rare H Urine Mucus Few H Micro UA Comment Culture not ind Ur Microscopic Review Not Reportable Urine Culture Comments Culture not ind 04/30/18 04/30/18 04/30/18 00:23 04:36 04:36 WBC 10.1 RBC 3.34 L Hgb 9.3 L Hct 28.1 L MCV 84.0 MCH 27.7 MCHC 33.0 RDW 14.6 Plt Count 293 MPV 8.3 Prelim Diff (Auto) Manual diff required WBC Differential Manual diff final Seg Neuts % (Manual) 55 Lymphocytes % (Manual) 35 Monocytes % (Manual) 8 Eosinophils % (Manual) 2 Abs Neuts (Manual) 5.6 Differential Comment . Platelet Estimate Normal Platelet Morphology Normal Acanthocytes (Spur) Occ H Sodium 144 Potassium 3.6 Chloride 110 H Carbon Dioxide 23.1 Anion Gap 11 BUN 13 Creatinine 0.95 Estimated GFR 70 L POC Glucose 122 H Random Glucose 107 H Calcium 8.7 Total Bilirubin 0.4 AST 54 H ALT 83 H Alkaline Phosphatase 120 H Total Protein 7.2 Albumin 2.7 L Urine Color Urine Clarity Urine pH Ur Specific [place] Urine Protein Urine Glucose (UA) Urine Ketones Urine Occult Blood Urine Nitrate Urine Bilirubin Urine Urobilinogen Ur Leukocyte Esterase Urine RBC Urine WBC Ur Squamous Epith Cells Urine Bacteria Urine Mucus Micro UA Comment Ur Microscopic Review Urine Culture Comments 04/30/18 04/30/18 05:28 07:28 WBC RBC Hgb Hct MCV MCH MCHC RDW Plt Count MPV Prelim Diff (Auto) WBC Differential Seg Neuts % (Manual) Lymphocytes % (Manual) Monocytes % (Manual) Eosinophils % (Manual) Abs Neuts (Manual) Differential Comment Platelet Estimate Platelet Morphology Acanthocytes (Spur) Sodium Potassium Chloride Carbon Dioxide Anion Gap BUN Creatinine Estimated GFR POC Glucose 124 H 121 H Random Glucose Calcium Total Bilirubin AST ALT Alkaline Phosphatase Total Protein Albumin Urine Color Urine Clarity Urine pH Ur Specific [place] Urine Protein Urine Glucose (UA) Urine Ketones Urine Occult Blood Urine Nitrate Urine Bilirubin Urine Urobilinogen Ur Leukocyte Esterase Urine RBC Urine WBC Ur Squamous Epith Cells Urine Bacteria Urine Mucus Micro UA Comment Ur Microscopic Review Urine Culture Comments - Procedures VDRF INTUBATION EXTUBATION Assessment and Plan - Assessment (1) RODRIGUEZ (acute kidney injury) Code(s): N17.9 - Acute kidney failure, unspecified Status: Resolved (2) Acute dehydration Code(s): E86.0 - Dehydration Status: Resolved (3) Altered mental status Code(s): R41.82 - Altered mental status, unspecified Status: Resolved - Plan Mrs. Matute is a 72-year-old female admitted secondary to delirium with respiratory failure: Acute delirium Chronic pain syndrome Peripheral neuropathy Impression: Delirium resolved. MRI 04/21 wnl Caution with narcotics Caution with gabapentin Cardiovascular Uncontrolled hypertension History of essential hypertension Hyperlipidemia Impression: Persistent BP elevations 04/29 -BP control -Continue metoprolol 50 mg twice daily (increased from 25mg BID home dose) -Continue Norvasc (increased to 10 mg daily) -Lisinopril increased to 40mg daily -Continue hydralazine PRN -Will add Vasotec PRN -Continue atorvastatin -Continue ezetimibe Respiratory Acute respiratory failure - Resolved Chronic tobacco abusee Impression: Patient initially intubated; extubated 04/23/201804/28-04/30- reported increased cough and sputum production; also pain with coughing and deep breathing, patient has lost voice -Repeat CXR negative 04/29 -Continue as needed nebulized treatments -Continue Tessalon Perles for cough, magic mouthwash for sore throat -Due to T99.9F/productive cough in patient with chronic tobacco abuse, will treat as COPD exacerbation -Azithromycin x5 days -Prednisone 40mg daily x5days Hypoalbuminemia Continue p.o. intake Diabetes mellitus Acute hyperglycemia Impression: Diabetes mellitus type 2. Controlled at home with Metformin, Glimepiride Follow blood sugars -Insulin sliding scale -Diabetic diet Renal/ RODRIGUEZ on admission Impression: Cr 2.48 on admission-> 1.04 (04/29) 04/28- urinary burning reported in association with back pain 04/29 UA- not suggestive of UTI -Continue to monitor BMP Normocytic anemia Monitor CBC daily. Follow trends Osteoarthritis Elevate BMI Debility Generalized weakness Continue physical therapy R ankle pain to palpation Impression: Ankle pain from fall; Ankle XR negative 04/23. Chronic knee osteoarthritis -Will provide with brace per [employer] -PT recommendations -Patient agrees to f/u with Ortho (Dr. Underwood) in 2 weeks LFT elevations Impression: Mild transaminase elevations since admission. No abdominal pain -US abdomen performed- minimal sludge in gallbladder; no liver findings -Discussed with patient; recommend outpatient CMP in 2 weeks to see if persistent/ work-up further if needed Electrolytes Hypernatremia, Hypocalcemia, Hypokalemia resolved -Monitor and replace as needed DVT prophylaxis Lovenox SCDs Code Status: Full code Discharge Planning: Anticipate discharge to SNF once BP controlled (3) Altered mental status Qualifiers: Altered mental status type: delirium Qualified Code(s): R41.0 - Disorientation, unspecified
[2018-04-30] MEDS ORDERED: predniSONE 20 MG Tablet PO SCH (11:00)
[2018-04-30 11:42] VITALS: BP 139/63; PULSE 63; RESP 20; TEMP 98.6; O2SAT 96
[2018-04-30] MEDS: Acetaminophen 325 MG Tablet NG/OG PRN (11:51)
[2018-04-30] MEDS: Enoxaparin Inj 40 MG/0.4 ML Syringe SQ SCH (12:21)
--- NOTE | 2018-04-30 13:36 | XR ---
EXAM DATE: 04/30/2018 1:30 PM EDT AGE/SEX: 72 years / Female INDICATIONS: Foot pain along metatarsal region. CLINICAL DATA: This is the patient's initial encounter. Patient reports that signs and symptoms have been present for 3 days and indicates a pain score of 5/10. MEDICAL/SURGICAL HISTORY: . Acute kidney injury (nontraumatic). Chronic pain syndrome. Diabetes mellitus. Hyperlipidemia. Hypertension. Normocytic anemia. Peripheral neuropathy. Former smoker. . . Laminectomy. Appendectomy. Total knee arthroplasty. COMPARISON: No prior exams available for comparison. FINDINGS: There is mild osteoarthritis of the first MTP joint with metatarsus primus varus and valgus. No fract ure or dislocation. Plantar calcaneal spur. Mild dorsal spurring at the mid foot tarsometatarsal johnny culations. CONCLUSION: Degenerative changes. Electronically signed by: Shahzad Santillan MD 04/30/2018 1:34 PM EDT
== END 2018-04-30 15:12 ==
LOC: NEPC 08:39 → NEDA 11:50 → HIMC 13:25 → N05 04-26 14:03
PROVIDERS: ADMIT Family Medicine; ATTEND Family Medicine